=== PATIENT | female | born 1940 | race Caucasian/White ===

== ENCOUNTER → 2016-04-25 | Outpatient (CLI) | payer MEDICARE ==
--- NOTE | 2016-04-25 10:55 | MM ---
Reason for exam: history of breast cancer, mastectomy. Last mammogram was performed 1 year and 1 month ago. History: Patient is postmenopausal, has history of high-risk lesion on a previous biopsy at age 64, has history of endometrial cancer at age 56, and has history of breast cancer at age 53. Mastectomy of the left breast, 1993. Excisional biopsy of the right breast, 1990. Chemotherapy. Taking tamoxifen for 10 years 5 months beginning at age 61. Physical Findings: Nurse did not find any significant physical abnormalities on exam. MG Diagnostic Mammo RT w CAD CC and MLO view(s) were taken of the right breast. Prior study comparison: March 15, 2015, right breast MG 3d diag mammo w/cad RT. February 10, 2014, right breast MG diagnostic mammo RT w CAD. December 18, 2012, right diagnostic mammogram w/CAD. There are scattered fibroglandular densities. Left mastectomy in 1993. No significant new findings when compared with previous films. These results were verbally communicated with the patient and result sheet given to the patient on 04/25/16. ASSESSMENT: Negative, BI-RAD 1 RECOMMENDATION: Follow-up diagnostic mammogram of the right breast in 1 year.
--- NOTE | 2016-04-25 11:24 | WWHP ---
DATE OF SERVICE: 04/25/2016 CHIEF COMPLAINT: The patient is here for her routine gynecologic exam and mammogram. HPI: This is a 75-year-old G3, P3 with an LMP of 1996 who is status post CHERIE, BSO for uterine cancer. The patient states it has been about 4 years since her last pelvic exam. She is without gynecologic complaints. PAST MEDICAL HISTORY: The patient has a history of left breast cancer, status post left mastectomy. She took Arimidex for 5 years and then tamoxifen for 5 years. She had a metastatic recurrence of the breast cancer and is now on Aromasin. The patient also was found to have uterine cancer in approximately 1996 and is status post CHERIE/BSO. She had part of her right lung removed in 2011 for metastatic cancer. 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 Also history of hypothyroidism. MEDICATIONS: 1. Aromasin 25 mg daily. 2. Levothyroxine 50 mcg daily. 3. Tramadol 50 mg p.r.n. 4. Hydroxyzine 50 mg p.r.n. 5. Acetaminophen t.i.d. p.r.n. 6. Aspirin 81 mg 1 daily. Allergies to SULFA, which caused tachycardia and PENICILLIN which caused her to develop C. difficile enterocolitis. PAST SURGICAL HISTORY: Left mastectomy approximately 1994, CHERIE/BSO in 1996 by myself, part of the right lung was removed approximately 2011, also knee replacement surgery, hip replacement surgery, umbilical hernia repair, leg vein stripping, tonsillectomy in the past, colonoscopy in 2015 and she has had several before this as well. PAST OB HISTORY: Three vaginal deliveries. 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 She has no history of STDs. SOCIAL HISTORY: She denies tobacco, alcohol, and drug use. She is a and is not sexually active. FAMILY HISTORY: Mother had heart valve problems. Daughter has Crohn disease. She denies family history of cancer of the breast, uterus, ovaries or colon. REVIEW OF SYSTEMS: Weight has been stable. She denies respiratory, cardiac, or GI problems. : She does have some occasional urinary urgency where she has to get to the bathroom right away and this has been a chronic problem. She denies maltreatment or falling. PHYSICAL EXAM: Blood pressure 143/64. Height 5 feet 5 inches. Weight 174 pounds. Temperature 97.7, pulse 71. This a well-developed, well-nourished white female who is alert and oriented x3 in no acute distress. HEENT is within normal limits. NECK: Supple without mass or thyromegaly. CHEST AND LUNGS: Clear to auscultation. HEART: Regular rate and rhythm. Breasts are consistent with previous left mastectomy. The right breast is without mass or discharge. The area of the left mastectomy is well healed with no abnormal masses or tenderness. Axillary exam is negative for adenopathy. BACK: Negative for CVA tenderness. ABDOMEN: Soft, nontender, without palpable masses. PELVIC EXAM: External genitalia reveals moderate atrophy without lesions. Vagina reveals moderate atrophy without lesions. The vagina is somewhat shortened to a depth of about one finger length. This is probably secondary to atrophy. There is no evidence of prolapse. Bimanual exam is negative for mass or tenderness. Rectovaginal exam is negative for mass or tenderness and is negative for occult blood. EXTREMITIES: Nontender. IMPRESSION: 1. A 75-year-old menopausal female, status post total abdominal hysterectomy bilateral salpingo-oophorectomy for uterine cancer in approximately 1996. 2. History of breast cancer with history of metastatic lesions in the lung and rib with no evidence of recurrence of breast or uterine cancer on physical exam today. PLAN: 1. Pap smear of the vaginal cuff was performed. We will continue to do vaginal cuff Pap smear screening because of her history of cancer. 2. Self breast examination was discussed. 3. Right diagnostic mammogram will be done today. 4. We will obtain records from [facility] [employer] and this should include bone density testing, which she believes was done there. 5. Osteoporosis prevention was discussed. 6. She is aware of her mildly elevated blood pressure and will follow up with Dr. Cali for this. 7. She did get her flu shot this past fall. 8. She will return in one year.
== END | disposition home or self-care (01) ==
LOC: WWCWWP 09:09
PROVIDERS: ATTEND Obstetrics & Gynecology
DX: Z85.3 Personal history of malignant neoplasm of breast (principal)

== ENCOUNTER → 2017-05-28 | Outpatient (CLI) | payer MEDICARE ==
[2017-05-28 09:35] VITALS: BP 138/73; PULSE 54; RESP 18; TEMP 98; BMI 28.8
--- NOTE | 2017-05-28 10:42 | P.HPOB ---
History of Present Illness H&P Date: 05/28/17 Chief Complaint: Patient is here for her routine gynecologic exam and mammogram. This is a 77-year-old G3 PIII with an LMP of 1996 who is status post CHERIE BSO for uterine cancer. She is without gynecologic complaints. She is not sexually active. Review of Systems Her weight has been stable. She denies respiratory, cardiac, or G.I. problems. She denies maltreatment or falling. : she does have occasional urinary urgency where she has to get to the bathroom right away. She denies significant problems with leakage. Past Medical History Past Medical History: Cancer (Breast, lung and endometrial cancer. History of osteoporosis- She has declined treatment in the past.), Osteoarthritis (OA), Thyroid Disorder (Hypothyroidism) Additional Past Medical History / Comment(s): BREAST,LUNG AND ENDOMETRIAL CA. 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 Last [facility] 2016 History of Any Multi-Drug Resistant Organisms: C-DIFF Date of last positivie culture/infection: 2002 MDRO Source:: STOOL Past Surgical History: Adenoidectomy, Breast Surgery, Hernia Repair, Hysterectomy (CHERIE BSO in 1996), Joint Replacement, Tonsillectomy Additional Past Surgical History / Comment(s): LEFT KNEE REPLACED. left MASTECTOMY. RIGHT LOWER LOBECTOMY. LEFT HIP REPLACED Past Anesthesia/Blood Transfusion Reactions: No Reported Reaction, Motion Sickness Past Psychological History: No Psychological Hx Reported Smoking Status: Never smoker Past Alcohol Use History: None Reported Past Drug Use History: None Reported Additional History: She is a and is not sexually active. - Past Family History Father History Unknown: Yes Mother Family Medical History: Coronary Artery Disease (CAD) Additional Family Medical History / Comment(s): CARDIAV VALVE REPLACED? Brother(s) Family Medical History: Mitral Valve Prolapse (MVP) Additional Family Medical History / Comment(s): VALVE REPLACED. Daughter(s) Additional Family Medical History / Comment(s): Daughter has Crohn's disease. Medications and Allergies Home Medications Medication Instructions Recorded Confirmed Type Exemestane 25 mg PO QAM 09/16/14 05/28/17 History traMADol HCL [Ultram] 50 mg PO Q6HR PRN #90 tab 10/01/14 05/28/17 Rx Levothyroxine Sodium [Synthroid] 50 mcg PO DAILY 12/16/15 05/28/17 History Aspirin [Adult Low Dose Aspirin EC] 81 mg PO DAILY 05/28/17 05/28/17 History Atenolol [Tenormin] 25 mg PO DAILY 05/28/17 05/28/17 History Ibuprofen [Motrin] 600 mg PO Q8HR PRN 05/28/17 05/28/17 History Allergies Allergy/AdvReac Type Severity Reaction Status Date / Time celecoxib [From Celebrex] Allergy Rash/Hives Verified 05/28/17 09:40 Sulfa (Sulfonamide Allergy Rapid Verified 05/28/17 09:40 Antibiotics) Heart Rate Penicillins AdvReac PATIENT Verified 05/28/17 09:40 HAS A HX OF C-DIFF, WAS TOLD BY DR REBOLLAR TO NO USE Exam - Vital Signs Vital signs: Vital Signs Temp Pulse Resp BP 05/28/17 09:24 98 F 54 L 18 138/73 Intake and Output 05/27/17 05/28/17 05/28/17 22:59 06:59 14:59 Other: Weight 78.471 kg Height 5'5", BMI 28.8. This is a well-developed well-nourished white female who is alert and oriented times 3 in no acute distress. HEENT: Within normal limits. NECK: Supple without mass or thyromegaly. CHEST AND LUNGS: Clear to auscultation. HEART: Regular rate and rhythm. BREASTS: left side is status post mastectomy. There are no masses in this area. Right breast is without mass or tenderness. Axillary exams negative for adenopathy. AXILLARY EXAM: Negative for adenopathy. BACK: Negative for CVA tenderness. ABDOMEN: Soft, nontender, without palpable masses. PELVIC EXAM: External genitalia appears normal with moderate atrophy. Vagina appears normal with moderate to severe atrophy. The vagina is somewhat short secondary to atrophy and has a length of approximately 9 cm. There is no evidence of prolapse. Bimanual examination is negative for mass or tenderness. RECTAL EXAM: Rectovaginal exam is negative for mass or tenderness and is negative for occult blood. EXTREMITIES: Nontender. IMPRESSION: 1. 77-year-old menopausal female status post CHERIE BSO for endometrial cancer stage 2B grade 2 with no evidence of recurrence. 2. History of osteoporosis previously declining medications. 3. Multiple medical problems. These problems include history of left breast cancer and metastatic lung cancer. PLAN: 1. Pap smear of the vaginal cuff was performed because of her history of endometrial cancer. 2. Self breast examination was discussed. 3. Diagnostic right mammogram will be done today. 4. Osteoporosis management was discussed. Bone density testing will be done in order slip was given at the patient for this. 5. She will return in one year. 6. She did receive a flu shot last fall.
--- NOTE | 2017-05-28 11:57 | MM ---
Reason for exam: additional evaluation requested from prior study. Last mammogram was performed 1 year and 1 month ago. History: Patient is postmenopausal, has history of high-risk lesion on a previous biopsy at age 64, has history of endometrial cancer at age 56, and has history of breast cancer at age 53. Mastectomy of the left breast, 1993. Excisional biopsy of the right breast, 1990. Chemotherapy. Taking tamoxifen for 10 years 5 months beginning at age 61. Physical Findings: Dr. Machado did not find any significant physical abnormalities on exam. MG Diagnostic Mammo RT w CAD CC, MLO, LM, and spot compression MLO view(s) were taken of the right breast. Prior study comparison: April 25, 2016, right breast MG diagnostic mammo RT w CAD. March 15, 2015, right breast MG 3d diag mammo w/cad RT. The breast tissue is heterogeneously dense. This may lower the sensitivity of mammography. There is a 9mm asymmetry that persists on spot compression views at anterior depth within the lateral right breast. Ultrasound will be performed. These results were verbally communicated with the patient and result sheet given to the patient on 05/28/17. ASSESSMENT: Incomplete: need additional imaging evaluation, BI-RAD 0 RECOMMENDATION: Ultrasound of the right breast.
--- NOTE | 2017-05-28 11:59 | USB ---
Reason for exam: additional evaluation requested from abnormal screening. History: Patient is postmenopausal, has history of high-risk lesion on a previous biopsy at age 64, has history of endometrial cancer at age 56, and has history of breast cancer at age 53. Mastectomy of the left breast, 1993. Excisional biopsy of the right breast, 1990. Chemotherapy. Taking tamoxifen for 10 years 5 months beginning at age 61. US Breast Limited RT Right breast ultrasound demonstrates a 0.4 x 0.2 x 0.3cm cystic lesion too small to characterize at 9:30, anechoic, vascular with slight increase through transmission. These results were verbally communicated with the patient and result sheet given to the patient on 05/28/17. ASSESSMENT: Benign, BI-RAD 2 RECOMMENDATION: Routine screening mammogram of the right breast in 1 year.
== END | disposition home or self-care (01) ==
LOC: WWCWWP 09:08
PROVIDERS: ATTEND Obstetrics & Gynecology
DX: Z08 Encounter for follow-up examination after completed treatment for malignant neoplasm (principal); Z85.3 Personal history of malignant neoplasm of breast
CPT/HCPCS: 77065

== ENCOUNTER → 2017-06-26 | Outpatient (CLI) | payer MEDICARE ==
--- NOTE | 2017-06-26 18:53 | BD ---
EXAMINATION TYPE: MG DEXA axial skeleton. DATE OF EXAM: 06/26/2017 CLINICAL HISTORY: 77-year-old female postmenopausal screening, osteoporosis Height: 62.5 Weight: 175 FRAX RISK QUESTIONS: Alcohol (3 or more units per day): no Family History (Parent hip fracture): no Glucocorticoids (More than 3mos): no (Ex: prednisone, prednisolone, methylprednisolone, dexamethasone, and hydrocortisone). History of Fracture in Adulthood: yes, right wrist/lower arm Secondary Osteoporosis: 1. Type 1 Diabetes: no 2. Hyperthyroidism: unsure 3. Menopause before 45: no 4. Malnutrition: no 5. Chronic liver disease: no Rheumatoid Arthritis: unsure Current Tobacco Use: no RISK FACTORS HISTORY OF: Hip Fracture (Right/Left): no Spine Fracture: no History of Wrist Fracture: yes When: at least 10 years Surgery to Hip(left): yes When: less than 5 years ago Family History of Osteoporosis: unsure Active: somewhat Diet low in dairy products/other sources of calcium: no Postmenopausal woman: yes Take estrogen and/or progesterone medications: no Lost more than 2 inches in height since high school: yes Frequent falls: no Poor Health: "OK" health Hyperparathyroidism: no Adrenal Insufficiency: no MEDICATIONS: Prednisone or other steroids: no Thyroid Medications: yes Which medication: levothyroxine How Long: about 2 years Osteoporosis Medications: no Additional Medications: Atenolol, Aromasin, tramadol, ibuprofin, asprin Additional History: Hysterectomy age 56; Breast CA age 61/ Chemo....took Antineoplastic over 10 years EXAM MEASUREMENTS: Bone mineral densitometry was performed using the [employer] System. Bone mineral density as measured about the Lumbar spine is: ----- L1-L4(G/cm2): 1.038 T Score Values are as follows: ----- L2: -0.5 ----- L3: -1.5 ----- L4: -1.9 ----- L1-L4: -1.2 Bone mineral density not previously done at this facility; previously done elsewhere Bone mineral density about the R hip (g/cm2): 0.608 T Score values are as follows: -----R Neck: -3.1 -----R Total: -3.4 Bone mineral density not previously done at this facility; previously done elsewhere IMPRESSION: Osteoporosis (T Score less than -2.5). There is increased fracture risk and therapy is usually indicated based on age. Re-Screen 1-2 years. NOTE: T-SCORE=SD OF THE YOUNG ADULT MEAN.
--- NOTE | 2017-07-02 17:33 | P.PN ---
Progress Note - Text Progress Note Date: 07/02/17 The patient's bone density test from 06/26/2017 was reviewed with the patient by phone. The bone density test shows osteoporosis in the right hip. The T score has gotten worse from her 07/28/2009 bone density test. She understands this significantly increases the risk for bone fracture. After a long discussion, she feels strongly that she does not want to start any bone strengthening medication. She understands there are several different types of medications for osteoporosis. She will try to get adequate amounts of calcium, vitamin D and regular exercise. She will try to keep her environment safe without things that would increase the risk of falling. She was instructed to call if she changes her mind about osteoporosis medications.
== END | disposition home or self-care (01) ==
LOC: RADBDWWP 09:41
PROVIDERS: ATTEND Obstetrics & Gynecology
DX: M81.0 Age-related osteoporosis without current pathological fracture (principal); Z78.0 Asymptomatic menopausal state
CPT/HCPCS: 77080

== ENCOUNTER → 2017-07-01 | Outpatient (CLI) | payer MEDICARE ==
[2017-07-01 10:53] LABS: Blood Urea Nitrogen 17 mg/dL (7-17)
--- NOTE | 2017-07-01 13:19 | CT ---
EXAMINATION TYPE: CT ChestAbdPelvis w con DATE OF EXAM: 07/01/2017 COMPARISON: 10/23/2013 HISTORY: Follow up breast cancer. History of partial pneumonectomy. CT DLP: 866.1 mGycm. Automated Exposure Control for Dose Reduction was Utilized. CONTRAST: CT scan of the thorax, abdomen and pelvis is performed with IV Contrast, patient injected with 100 mL of Isovue 300. FINDINGS: LUNGS/OSSEOUS STRUCTURES: There is new chest wall mass and osseous destruction of the anterior margin and costochondral junction of the fifth rib on the left with pleural thickening/chest wall mass harper uring up to 2.1 cm on series 3 image 36 and 5.8 cm in anterior posterior dimension. There is focal sc lerosis of the more proximal fifth rib at the anterior lateral margin just before the area of osseous destruction. Mild glenohumeral arthropathy and moderate degenerative changes of the thoracic spine a re seen otherwise no other suspicious osseous lesions are noted. Generalized osseous demineralization and left hip arthroplasty are seen. Grade 1 anterolisthesis of L4 on L5 is seen, likely degenerative in nature. There is an S-shaped scoliotic curvature of the thoracolumbar spine. Focal pleural thickening is seen along the interlobar fissure with associated calcification, not enla rged from and similar to the prior exam of 10/23/2013 with postsurgical clips along the right mediasti num. Findings are compatible with sequela of prior right-sided partial pneumonectomy. Minimal right m iddle lobe atelectasis is noted. Chronic left hemidiaphragm elevation is seen. Right basilar calcifie d granuloma is unchanged from the prior as well as area of pleural parenchymal scarring along the rig ht costophrenic angle. Anterior left upper lobe pleural parenchymal scarring is also identified. Left basilar subsegmental atelectasis is seen. No new pulmonary nodules or masses are identified. No foca l consolidation, pleural effusion or pneumothorax. The tracheobronchial tree is patent. MEDIASTINUM: There are no greater than 1 cm hilar or mediastinal lymph nodes. Moderate calcific athe romatous changes are seen of the thoracic aorta with severe coronary artery calcifications of the lef t main and left anterior descending coronary arteries. No pericardial effusion is seen. Left breast is surgically absent. LIVER/GB: Probable hepatic cyst measures 1.2 cm within the inferior right hepatic lobe in segment 5 a nd is unchanged from the prior of 10/23/2013. No new hepatic lesions are seen. Gallbladder is unremark able without cholelithiasis. PANCREAS: No significant abnormality is seen. SPLEEN: No significant abnormality is seen. ADRENALS: Symmetric thickening without focal nodularity likely represents underlying adrenal gland hy perplasia. KIDNEYS: Right-sided extrarenal pelvis is incidentally identified. Kidneys enhance and excrete symmet rically. No hydronephrosis. BOWEL: There is a small hiatal hernia with retained oral contrast that may represent gastroesophageal reflux or stasis. There is rectal distention with air without evidence of obstruction. Moderate amou nt retained colonic stool is noted. LYMPH NODES: No greater than 1cm abdominal or pelvic lymph nodes are appreciated. OTHER: There is a small fat filled ventral hernia with a neck measuring 1.4 cm. IMPRESSION: 1. Osseous destruction of the anterior left fifth rib with chest wall mass and focal pleural thickeni ng measuring 5.8 x 2.1 cm deep to the left mastectomy site concerning for recurrence of the patient's primary breast cancer. This is amenable to percutaneous biopsy. No mediastinal adenopathy, axillary adenopathy or internal mammary adenopathy. 2. Stable probable hepatic cyst dating back to 2014. No evidence of visceral, lymphatic, or osseous m etastasis within the abdomen or pelvis. 3. Postsurgical changes of a partial right-sided pneumonectomy. Stable pleural thickening back to 201 4.
--- NOTE | 2017-07-01 15:41 | NM ---
EXAMINATION TYPE: NM bone scan whole body DATE OF EXAM: 07/01/2017 COMPARISON: 10/05/2013 HISTORY: Breast cancer. Delayed whole-body scanning was performed following the injection of 23.5 mCi Tc 99m MDP. Images acq uired 3 hours post injection. FINDINGS: The previously seen focal uptake within the left hip is no longer present as there is a photopenic de fect from a left hip arthroplasty. Similar degenerative changes of the right knee are seen in compari son to the prior. Physiologic excretion within the renal pelvises sees and urinary bladder are noted. S-shaped scoliotic curvature of the spine is seen with degenerative changes of the axial skeleton si milar to the prior exam with mild uptake in the lumbar spine and no corresponding CT lesion. Degenera tive changes of arthropathy within the glenohumeral joints and sternal clavicular joints are also not ed. Injection site within the right and is present. Additionally there is an abnormal area radiotracer uptake within the anterior margin of the left fift h rib, and compatible with metastasis and similar to exam of 10/05/2013. IMPRESSION: 1. Similar uptake within the anterior left approximate fifth rib in comparison to exam of 2013 compat ible with metastasis. 2. Left hip arthroplasty replaces the previously seen area of abnormal radiotracer uptake within the left hip on the exam of 2013. 3. Degenerative changes of the axial and appendicular skeleton are also similar to the prior.
== END | disposition home or self-care (01) ==
LOC: RADNMMAIN 10:01
PROVIDERS: ATTEND Internal Medicine Hematology & Oncology
DX: C50.512 Malignant neoplasm of lower-outer quadrant of left female breast (principal); Z90.12 Acquired absence of left breast and nipple; R94.8 Abnormal results of function studies of other organs and systems; R91.8 Other nonspecific abnormal finding of lung field; Z90.2 Acquired absence of lung [part of]; Z88.2 Allergy status to sulfonamides
CPT/HCPCS: 82565; 84520; 71260; 74177; 36415 ×2; 78306; A9503; Q9967

== ENCOUNTER → 2018-06-12 | Outpatient (CLI) | payer MEDICARE ==
--- NOTE | 2018-06-12 11:43 | MM ---
Reason for exam: additional evaluation requested from prior study. Last mammogram was performed 1 year ago. History: Patient is postmenopausal, has history of high-risk lesion on a previous biopsy at age 64, has history of endometrial cancer at age 56, and has history of breast cancer at age 53. Mastectomy of the left breast, 1993. Excisional biopsy of the right breast, 1990. Chemotherapy. Taking tamoxifen for 10 years 5 months beginning at age 61. Physical Findings: Nurse did not find any significant physical abnormalities on exam. MG Diagnostic Mammo RT w CAD CC and MLO view(s) were taken of the right breast. Prior study comparison: May 28, 2017, right breast MG diagnostic mammo RT w CAD. April 25, 2016, right breast MG diagnostic mammo RT w CAD. The breast tissue is heterogeneously dense. This may lower the sensitivity of mammography. There are benign appearing round vascular calcifications in the right breast. Asymmetric breast tissue in the right breast is stable. These results were verbally communicated with the patient and result sheet given to the patient on 06/12/18. ASSESSMENT: Benign, BI-RAD 2 RECOMMENDATION: Follow-up diagnostic mammogram of the right breast in 1 year.
== END ==
LOC: RADMAMWWP 10:42
PROVIDERS: ATTEND Internal Medicine Hematology & Oncology
DX: C50.512 Malignant neoplasm of lower-outer quadrant of left female breast (principal)
CPT/HCPCS: 77065

== ENCOUNTER → 2018-09-03 | Outpatient (CLI) | payer MEDICARE ==
[2018-09-03 10:30] VITALS: BP 130/66; PULSE 81; RESP 18; TEMP 98.4; BMI 25.6
--- NOTE | 2018-09-03 12:07 | P.HPOB ---
History of Present Illness H&P Date: 09/03/18 Chief Complaint: The patient is here for her routine gynecologic exam. This is a 78 year old G3 PIII with an LMP of 1996 the patient is status post CHERIE BSO for uterine cancer stage 2B grade 2. Because of the history of cancer involving the cervix, she continues to have yearly exams to screen for vaginal cancer or signs of recurrence. She is without gynecologic complaints.. Review of Systems She has lost 17 pounds over the last year. She denies respiratory or cardiac, problems. G.I.: she has slight stomach upset today. She denies maltreatment or problems with falling. : she has had some issues with urinary leakage if she does not get to the bathroom in time. She does wear protection because of this. Past Medical History Past Medical History: Cancer, Osteoarthritis (OA), Thyroid Disorder Additional Past Medical History / Comment(s): BREAST,LUNG AND ENDOMETRIAL CA. Osteoporosis and hypothyroidism. 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 History of Any Multi-Drug Resistant Organisms: C-DIFF Date of last positivie culture/infection: 2002 MDRO Source:: STOOL Past Surgical History: Adenoidectomy, Breast Surgery, Hernia Repair, Hy sterectomy, Joint Replacement, Tonsillectomy Additional Past Surgical History / Comment(s): LEFT KNEE REPLACED. left MASTECTOMY. RIGHT LOWER LOBECTOMY. LEFT HIP REPLACED. CHERIE BSO in 1996. Past Anesthesia/Blood Transfusion Reactions: No Reported Reaction, Motion Sickness Past Psychological History: No Psychological Hx Reported Smoking Status: Never smoker Past Alcohol Use History: None Reported Past Drug Use History: None Reported Additional History: She is a and is not sexually active. - Past Family History Father History Unknown: Yes Daughter(s) Additional Family Medical History / Comment(s): Daughter has Crohn's disease. Mother Family Medical History: Coronary Artery Disease (CAD) Additional Family Medical History / Comment(s): CARDIAC VALVE PROBLEMS Brother(s) Family Medical History: Mitral Valve Prolapse (MVP) Additional Family Medical History / Comment(s): VALVE REPLACED. Medications and Allergies Home Medications Medication Instructions Recorded Confirmed Type Exemestane 25 mg PO QAM 09/16/14 09/03/18 History traMADol HCL [Ultram] 50 mg PO Q6HR PRN #90 tab 10/01/14 09/03/18 Rx Levothyroxine Sodium [Synthroid] 50 mcg PO DAILY 12/16/15 09/03/18 History Aspirin [Adult Low Dose Aspirin EC] 81 mg PO DAILY 05/28/17 05/28/17 History Atenolol [Tenormin] 25 mg PO DAILY 05/28/17 09/03/18 History Ibuprofen [Motrin] 600 mg PO Q8HR PRN 05/28/17 09/03/18 History Allergies Allergy/AdvReac Type Severity Reaction Status Date / Time celecoxib [From Celebrex] Allergy Rash/Hives Verified 09/03/18 10:30 Sulfa (Sulfonamide Allergy Rapid Verified 09/03/18 10:30 Antibiotics) Heart Rate Penicillins AdvReac PATIENT Verified 09/03/18 10:30 HAS A HX OF C-DIFF, WAS TOLD BY DR REBOLLAR TO NO USE Exam Vital Signs Temp Pulse Resp BP Pulse Ox 09/03/18 10:23 98.4 F 81 18 130/66 99 Intake and Output 09/02/18 09/03/18 09/03/18 22:59 06:59 14:59 Other: Weight 69.853 kg Height 5'5", weight 154 pounds, BMI 25.6. This is a well-developed well-nourished white female who is alert and oriented times 3 in no acute distress. HEENT: Within normal limits. NECK: Supple without mass or thyromegaly. CHEST AND LUNGS: Clear to auscultation. HEART: Regular rate and rhythm. BREASTS: she is status post left mastectomy. The right breast is without mass or discharge. AXILLARY EXAM: Negative for adenopathy. BACK: Negative for CVA tenderness. ABDOMEN: Soft, nontender, without palpable masses. PELVIC EXAM: External genitalia appears normal with moderate atrophy and moderate varicosities. Vagina appears normal with moderate atrophy. There are no vaginal lesions. The vagina is moderately shortened consistent with her previous radiation therapy. There is no evidence of prolapse. Bimanual examination is negative for mass or tenderness. RECTAL EXAM: Rectovaginal exam is negative for mass or tenderness and is negative for occult blood. EXTREMITIES: Nontender. IMPRESSION: 1. 78-year-old menopausal female status post CHERIE BSO for endometrial cancer stage 2B (cervical involvement) grade 2 status post adjuvant radiation therapy with no evidence of recurrence on exam. 2. History of left breast cancer with history of metastatic lesions in the long and rib with no evidence of recurrence on physical exam today. 3. History of osteoporosis, refusing medication. PLAN: 1. Pap smear of the vaginal cuff was performed. We will continue to do this yearly because of her history of endometrial cancer with cervical involvement. 2. Self breast awareness was discussed with the patient. 3. Mammogram on the right side was done on 06/12/2018 and was benign. She will continue to do this yearly and has done this through her oncologist. 4. Osteoporosis management was discussed. I have stressed the importance of adequate calcium, vitamin D and regular exercise. Recommended amounts of calcium and vitamin D were also discussed. I have again recommended medication because of her increased risk for bone fracture. She again is declining treatment with medication. Her last bone density test was done on 06/26/17. 5. She does get flu shots in the fall. 6.She was advised to return in one year for her annual well woman exam.
== END ==
LOC: WWCWWP 10:15
PROVIDERS: ATTEND Obstetrics & Gynecology
DX: Z53.9 Procedure and treatment not carried out, unspecified reason (principal)

== ENCOUNTER → 2019-11-05 | Outpatient (CLI) | payer MEDICARE ==
--- NOTE | 2019-11-05 10:46 | MM ---
Reason for exam: additional evaluation requested from prior study. Last mammogram was performed 1 year and 5 months ago. History: Patient is postmenopausal, has history of high-risk lesion on a previous biopsy at age 64, has history of endometrial cancer at age 56, and has history of breast cancer at age 53. Mastectomy of the left breast, 1993. Excisional biopsy of the right breast, 1990. Chemotherapy. Taking tamoxifen for 10 years 5 months beginning at age 61. Physical Findings: Nurse did not find any significant physical abnormalities on exam. MG 3D Diag Mammo W/Cad RT CC and MLO view(s) were taken of the right breast. Prior study comparison: June 12, 2018, right breast MG diagnostic mammo RT w CAD. May 28, 2017, right breast MG diagnostic mammo RT w CAD. The breast tissue is heterogeneously dense. This may lower the sensitivity of mammography. Stable benign calcifications. There is no discrete abnormality. No significant new findings when compared with previous films. These results were verbally communicated with the patient and result sheet given to the patient on 11/05/19. ASSESSMENT: Benign, BI-RAD 2 RECOMMENDATION: Follow-up diagnostic mammogram of the right breast in 1 year.
== END | disposition home or self-care (01) ==
LOC: RADMAMWWP 09:42
PROVIDERS: ATTEND Internal Medicine Hematology & Oncology
DX: Z08 Encounter for follow-up examination after completed treatment for malignant neoplasm (principal); Z85.3 Personal history of malignant neoplasm of breast
CPT/HCPCS: 77065; G0279; 77061

== ENCOUNTER → 2020-03-02 | Outpatient (CLI) | payer MEDICARE ==
--- NOTE | 2020-03-02 15:12 | BD ---
EXAMINATION TYPE: Axial Bone Density DATE OF EXAM: 03/02/2020 COMPARISON: 06/26/2017 CLINICAL HISTORY: Postmenopausal female with osteoporosis. Height: 60.5 IN Weight: 145 LBS RISK FACTORS HISTORY OF: History of Wrist Fracture: RT WRIST FX AGE 9 Surgery to Hip(left): AGE 70 Active: LIMITED Postmenopausal woman: TOTAL HYST AGE 47 Lost more than 2 inches in height since high school: YES 6" MEDICATIONS: Thyroid Medications: YES Which medication: Levothyroxine How Lon YEARS Osteoporosis Medications: FOSAMAX How Lon MONTHS Additional Medications: CALCIUM, VIT D, 81 MG ASPIRIN, ATENOLOL, LEVOTHYROXINE, EXEMESTANE (PER PT TH IS IS A CANCER MEDICATION),ALENDRONATE Additional History: BREAST CANCER WITH CHEMO AND RADIATION EXAM MEASUREMENTS: Bone mineral densitometry was performed using the [employer] System. Bone mineral density as measured about the Lumbar spine is: ----- L1-L4(G/cm2): 1.032 T Score Values are as follows: ----- L2: -0.6 ----- L3: -1.5 ----- L4: -1.9 ----- L1-L4: -1.2 Bone mineral density has: Decreased -0.3% since study of: 06/26/2017 Bone mineral density about the R hip (g/cm2): 0.581 T Score values are as follows: -----R Neck: -3.3 ----R Total: -4.0 Bone mineral density has: Decreased -13.8% since study of: 06/26/2017 IMPRESSION: Osteoporosis (T Score less than -2.5) remains present in right hip. Bone density is decreased or dimi nished from prior. Bone density falsely measured in the lumbar spine due to reactive sclerosis relate d to underlying scoliosis. There remains increased fracture risk and therapy is usually indicated based on age. Re-Screen 1-2 years. NOTE: T-SCORE=SD OF THE YOUNG ADULT MEAN.
== END | disposition home or self-care (01) ==
LOC: RADBDWWP 09:15
PROVIDERS: ATTEND Family Medicine
DX: M81.0 Age-related osteoporosis without current pathological fracture (principal); M89.8X8 Other specified disorders of bone, other site; M41.80 Other forms of scoliosis, site unspecified
CPT/HCPCS: 77080

== ENCOUNTER → 2020-04-27 | Outpatient (CLI) | payer MEDICARE ==
--- NOTE | 2020-04-27 10:37 | CT ---
EXAMINATION TYPE: CT ChestAbdPelvis w con DATE OF EXAM: 04/27/2020 INDICATION: Breast cancer COMPARISON: 07/01/2017 CT DLP: 1466 mGycm CONTRAST: Performed with Oral Contrast and with IV Contrast, patient injected with 100 ml mL of Isovue 300. TECHNIQUE: Axial images at 5 mm thick sections. Reconstructed images in the coronal plane. Delayed images through the kidneys. FINDINGS: CT CHEST: Portion of the thyroid visualized is normal. No suspicious lung nodules or focal infiltrates are present. No enlarged mediastinal or hilar adenopathy is evident. The ascending aorta diameter at the level of the main pulmonary artery is 3.6 cm. The main pulmonary artery diameter at the bifurcation is 3.5 cm. There is soft tissue thickening in the left intercostal region estimated at 6.2 x 3.0 cm.. Previous m easurement 5.[address] ABDOMEN: Liver: There is a 1.4 cm cyst in the right lobe liver Spleen: Normal Pancreas: Normal Adrenal glands: The adrenal glands are normal. Gallbladder: Small gallstone is likely present. Kidneys: No masses are evident. No hydronephrosis is present. No cysts are present. Delayed images were obtained through the kidneys, which remain unremarkable. Aorta: Vascular calcification is within the aorta. Inferior vena cava: Normal. CT PELVIS: Beam hardening artifact from a left hip prosthesis is present. Loops of bowel within the abdomen and pelvis are normal. There are loops of bowel which are incom pletely distended or lack oral contrast limiting their evaluation. Appendix: Not identified. No suspicious dilated tubular structure or inflammatory changes are evident . Urinary bladder: Normal as visualized. Genitourinary structures: Uterus and ovaries are not identified. Osseous structures: No suspicious lytic or sclerotic lesions. Facet degenerative changes are present. Scoliosis is through the lumbar spine. Suspicious rib erosions at the chest wall mass are not identi fied. IMPRESSIONS: 1. Increasing chest wall mass left anterior lateral intercostal region. 2. Additional metastatic lesions not identified. Exam is otherwise stable from comparison
--- NOTE | 2020-04-27 14:07 | NM ---
EXAMINATION TYPE: NM bone scan whole body DATE OF EXAM: 04/27/2020 COMPARISON: 07/01/2017, 10/05/2013 HISTORY: Breast cancer Delayed whole-body scanning was performed following the injection of 22.0 mCi Tc 99m MDP. Images wer e acquired 4.5 hours post injection. FINDINGS: Scoliosis is present. There is some increased uptake in the mid right posterior costovertebral juncti on. This could be degenerative but is not clearly evident on the prior exam. Consider plain film cor relation to the thoracic spine. There is increased uptake in the region of the bilateral shoulders greater on the left, the right kne e, the bilateral first metacarpal phalangeal joint spaces. These are likely degenerative in nature. L eft hip and left knee prosthesis photopenic defects are evident. There is some subtle uptake at the cervicothoracic junction slightly right of midline. This is likely degenerative in nature and may been present previously. IMPRESSION: 1. At least 2 focal areas of increased uptake at the costovertebral junction in the region of T9-10 a t the convexity of the scoliosis. This may be an interval change. Plain film correlation with thoraci c films are recommended. This could be degenerative in nature. 2. Additional areas of uptake more typical for degenerative changes in present previously.
== END ==
LOC: RADCTMAIN 07:44
PROVIDERS: ATTEND Internal Medicine Hematology & Oncology
DX: C50.512 Malignant neoplasm of lower-outer quadrant of left female breast (principal); R22.2 Localized swelling, mass and lump, trunk
CPT/HCPCS: 82565; 84520; 71260; 74177; 36415; 78306; A9503; Q9967

== ENCOUNTER → 2020-11-01 | Outpatient (CLI) | payer MEDICARE ==
[2020-11-01 09:29] LABS: African American GFR (CKD) >90 (>60 ml/min/1.73 sqM); Blood Urea Nitrogen 20 mg/dL (7-17); Non-African American GFR(CKD) 78 (>60 ml/min/1.73 sqM)
--- NOTE | 2020-11-01 11:34 | CT ---
EXAMINATION TYPE: CT ChestAbdPelvis w con DATE OF EXAM: 11/01/2020 COMPARISON: Most recent CT and bone scan April 27, 2020 and older studies HISTORY: Breast CA progress study. CT DLP: 1152 mGycm. Automated Exposure Control for Dose Reduction was Utilized. CONTRAST: CT scan of the thorax, abdomen and pelvis is performed with oral and with IV Contrast, patient inject ed with 100 mL of Isovue 300. FINDINGS: LUNGS: Persistent fat-containing diaphragmatic hernia sagittal image 68 left lung base. Mild bibasila r linear scarring and/or atelectasis. No new greater than 5 mm nodules or masses. No pleural effusion or pneumothorax. MEDIASTINUM: There are no greater than 1 cm hilar or mediastinal lymph nodes. No cardiomegaly or pe ricardial effusion is seen. Prominent right and left pulmonary arteries, CT findings consistent with underlying pulmonary artery hypertension. Coronary artery calcification is redemonstrated. OTHER: Left breast is surgically absent. Persistent anterolateral left sided chest wall mass measuring 6.1 x 3.0 cm axial image 35 destroying portion of anterolateral left fifth rib. No significant change from prior study. LIVER/GB: Stable 1.3 cm thin-walled cyst right hepatic lobe axial image 64. Tiny dependent gallstone axial image 61 is redemonstrated. PANCREAS: No significant abnormality is seen. SPLEEN: No significant abnormality is seen. ADRENALS: No significant abnormality is seen. KIDNEYS: No significant abnormality is seen. BOWEL: Oral contrast does not reach colonic level. Mild diffuse colonic fecal prominence. No suspicio us small and large bowel dilatation. GENITAL ORGANS: Uterus surgically absent. LYMPH NODES: No greater than 1cm abdominal or pelvic lymph nodes are appreciated. OSSEOUS STRUCTURES: Facet arthropathy mid to lower lumbar spine again. Underlying scoliosis. Metallic artifact from left hip arthroplasty causes streak artifact limiting evaluation of pelvic structures. OTHER: No significant additional abnormality is seen. IMPRESSION: Persistent destructive lesion left anterolateral mid thoracic chest wall thought stable. No new suspicious mass or adenopathy clearly identified.
--- NOTE | 2020-11-01 14:50 | NM ---
EXAMINATION TYPE: NM bone scan whole body DATE OF EXAM: 11/01/2020 COMPARISON: Same day CT. Prior bone scan April 27, 2020 HISTORY: Breast cancer. Delayed whole-body scanning was performed following the injection of 25.2 mCi Tc 99m MDP. Images acq uired 3.75 hours post injection. Whole body projections anterior and posteriorly along with additiona l oblique images of the head and neck thorax and abdomen are acquired. FINDINGS: Underlying scoliosis redemonstrated. Persistent increased radiotracer uptake left anterolateral chest wall consistent with known destructive soft tissue lesion. Additional areas of increased radiotracer uptake throughout the spine are thought to reflect areas of increased degenerative change without si gnificant change from most recent bone scan and no definitive corresponding CT suspicious sclerotic o r lytic lesion. Persistent increased radiotracer uptake bilateral shoulders and right knee level to r eflect degenerative change. Lucency from left knee prosthesis redemonstrated. Increased uptake parana bubba region could reflect sinus disease similar to prior. IMPRESSION: Persistent suspicious uptake left anterolateral mid chest wall corresponds to destructive soft tissue mass. No new areas of osseous neoplastic involvement clearly seen.
== END | disposition home or self-care (01) ==
LOC: RADNMMAIN 08:37
PROVIDERS: ATTEND Internal Medicine Hematology & Oncology
DX: C50.812 Malignant neoplasm of overlapping sites of left female breast (principal); Z03.89 Encounter for observation for other suspected diseases and conditions ruled out
CPT/HCPCS: 82565; 84520; 71260; 74177; 36415; 78306; A9503; Q9967 ×2

== ENCOUNTER → 2020-11-15 | Outpatient (CLI) | payer MEDICARE ==
[2020-11-15 08:10] VITALS: BP 108/65; PULSE 78; RESP 12; TEMP 97.5
--- NOTE | 2020-11-15 09:03 | P.HPOB ---
History of Present Illness H&P Date: 11/15/20 Chief Complaint: The patient is here for her routine gynecologic exam and ma mmogram. This is a 80-year-old with an LMP of 1996. The patient is status post CHERIE/BSO in 1996 for uterine cancer stage IIB grade 2. She is without gynecologic complaints. Review of Systems She has lost about 12 pounds over the past 2 years. She denies respiratory, cardiac and G.I. problems. She denies maltreatment or problems with falling. : She does have some urinary leakage which requires her to wear a pad. Past Medical History Past Medical History: Cancer, Osteoarthritis (OA), Thyroid Disorder Additional Past Medical History / Comment(s): L BREAST,LUNG AND ENDOMETRIAL CA. Osteoporosis and hypothyroidism. 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 History of Any Multi-Drug Resistant Organisms: C-DIFF Date of last positivie culture/infection: 2002 MDRO Source:: STOOL Past Surgical History: Adenoidectomy, Breast Surgery, Hernia Repair, Hysterectomy, Joint Replacement, Tonsillectomy Additional Past Surgical History / Comment(s): LEFT KNEE REPLACED. left MASTECTOMY. RIGHT LOWER LOBECTOMY. LEFT HIP REPLACED. CHERIE BSO in 1996. Past Anesthesia/Blood Transfusion Reactions: No Reported Reaction, Motion Sickness Past Psychological History: No Psychological Hx Reported Smoking Status: Never smoker Past Alcohol Use History: None Reported Past Drug Use History: None Reported Additional History: She is a and is not sexually active. - Past Family History Father History Unknown: Yes Family Medical History: Unable to Obtain Daughter(s) Additional Family Medical History / Comment(s): Daughter has Crohn's disease. Mother Family Medical History: Coronary Artery Disease (CAD) Additional Family Medical History / Comment(s): CARDIAC VALVE PROBLEMS Brother(s) Family Medical History: Mitral Valve Prolapse (MVP) Additional Family Medical History / Comment(s): VALVE REPLACED. Medications and Allergies Home Medications Medication Instructions Recorded Confirmed Type Exemestane 25 mg PO QAM 09/16/14 11/15/20 History traMADol HCL [Ultram] 50 mg PO Q6HR PRN #90 tab 10/01/14 11/15/20 Rx Levothyroxine Sodium [Synthroid] 50 mcg PO DAILY 10/21/16 09/21/21 History Aspirin [Adult Low Dose Aspirin EC] 81 mg PO DAILY 05/28/17 11/15/20 History Ibuprofen [Motrin] 600 mg PO Q8HR PRN 05/28/17 11/15/20 History atenoloL [Tenormin] 25 mg PO DAILY 05/28/17 11/15/20 History Allergies Allergy/AdvReac Type Severity Reaction Status Date / Time celecoxib [From Celebrex] Allergy Rash/Hives Verified 11/15/20 07:53 Sulfa (Sulfonamide Allergy Rapid Verified 11/15/20 07:53 Antibiotics) Heart Rate Penicillins AdvReac PATIENT Verified 11/15/20 07:53 HAS A HX OF C-DIFF, WAS TOLD BY DR REBOLLAR TO NO USE Exam Vital Signs Temp Pulse Resp BP Pulse Ox 11/15/20 07:55 97.5 F L 78 12 108/65 100 Intake and Output 11/14/20 11/15/20 11/15/20 22:59 06:59 14:59 Other: Weight 64.41 kg Height 5 feet 6 inches, weight 142 pounds, BMI 22.9. This is a well-developed well-nourished white female who is alert and oriented times 3 in no acute distress. The patient has a very slow gait and seems to have limited mobility at her hips. HEENT: Within normal limits. NECK: Supple without mass or thyromegaly. CHEST AND LUNGS: Clear to auscultation. HEART: Regular rate and rhythm. BREASTS: Exam is consistent with previous left mastectomy. The right breast is without lesions or nipple discharge. There are no masses or skin changes at the area of the left mastectomy. AXILLARY EXAM: Negative for adenopathy. BACK: Negative for CVA tenderness. ABDOMEN: Soft, nontender, without palpable masses. PELVIC EXAM: External genitalia reveals severe atrophy with some generalized erythema. Vagina appears normal with moderate to severe atrophy. The vagina is somewhat shortened consistent with her previous radiation therapy. There are no vaginal lesions. There is no evidence of prolapse. Bimanual examination is negative for mass or tenderness. RECTAL EXAM: Rectovaginal exam is negative for mass or tenderness and is negative for occult blood. EXTREMITIES: Nontender. IMPRESSION: 1. 80-year-old menopausal female status post CHERIE/BSO for uterine cancer in 1996 with no evidence of recurrence at this time. 2. Severe genital atrophy with some chronic vulvar inflammation secondary to chronic pad use. 3. History of osteoporosis now taking Fosamax through her PCP. PLAN: 1. Pap smears will be discontinued. This is since she has had a hysterectomy and it has been greater than 20 years since her hysterotomy for uterine cancer. 2. Self breast awareness was discussed with the patient. We have also discussed symptoms associated with inflammatory breast cancer. 3. Diagnostic right mammogram will be done today. 4. Osteoporosis management was discussed with the patient. I stressed the importance of continuing to get adequate calcium, vitamin D and regular exercise She is now on medication for her osteoporosis. She states she believes she has had more joint pains on Fosamax and they're talking of changing her to an injectable medication for osteoporosis. She is not sure of the name of the medication. This will be managed by her PCP and oncologist. 5. She has completed her Covid vaccination series. 6. She was advised to use a small amount of petroleum jelly to the vulva as a protective layer. She denies itching or irritation symptoms. 7. She was advised to return in one year for her annual well woman exam and as needed.
--- NOTE | 2020-11-15 10:02 | MM ---
Reason for exam: additional evaluation requested from prior study. Last mammogram was performed 1 year ago. History: Patient is postmenopausal, has history of high-risk lesion on a previous biopsy at age 64, has history of endometrial cancer at age 56, and has history of breast cancer at age 53. Mastectomy of the left breast, 1993. Excisional biopsy of the right breast, 1990. Chemotherapy. Taking tamoxifen for 10 years 5 months beginning at age 61. Physical Findings: Breast exam performed by Dr. Machado. MG Diagnostic Mammo RT w CAD CC and MLO view(s) were taken of the right breast. Prior study comparison: November 05, 2019, right breast MG 3d diag mammo w/cad RT. June 12, 2018, right breast MG diagnostic mammo RT w CAD. May 28, 2017, right breast MG diagnostic mammo RT w CAD. The breast tissue is heterogeneously dense. This may lower the sensitivity of mammography. No significant new findings when compared with previous films. These results were verbally communicated with the patient and result sheet given to the patient on 11/15/20. ASSESSMENT: Benign, BI-RAD 2 RECOMMENDATION: Follow-up diagnostic mammogram of the right breast in 1 year.
== END ==
LOC: WWCWWP 07:44
PROVIDERS: ATTEND Obstetrics & Gynecology
DX: Z08 Encounter for follow-up examination after completed treatment for malignant neoplasm (principal); Z85.3 Personal history of malignant neoplasm of breast
CPT/HCPCS: 77065

== ENCOUNTER → 2021-05-01 | Outpatient (CLI) | payer MEDICARE ==
--- NOTE | 2021-05-01 10:59 | CT ---
EXAMINATION TYPE: CT Chest Abd Pelvis w con DATE OF EXAM: 05/01/2021 COMPARISON: CT dated 11/01/2020 HISTORY: Breast CA with suspected mets CT DLP: 697.9 mGycm Automated exposure control for dose reduction was used. CONTRAST: CT scan of the chest, abdomen and pelvis is performed with Oral Contrast and with IV Contrast, patien t injected with 80 mL of Isovue 300. FINDINGS: LUNGS: Newly seen focal reticulonodular infiltrates at the lateral aspect of the left lower lobe supe rior segment with nodules measuring up to 10 mm. Slightly more prominent right lower lobe nodule harper uring 8.5 mm compared to 7.5 mm previously. Prominent left upper lobe nodule measuring 3.4 mm compare d to 2.2 mm previously. Unchanged remainder of the lungs. No pleural effusion. MEDIASTINUM: Slight cardiac enlargement. Coronary and arterial atherosclerotic calcifications. Dilate d right pulmonary artery measuring up to 3.4 cm suggestive of pulmonary hypertension. No major or denis tral pulmonary embolism. No pathologically enlarged or progressive lymph nodes in the chest. No peric ardial effusion. OTHER: Previous left mastectomy. Redemonstration of the lytic lesion involving the anterior aspect o f the left fifth rib with extraosseous soft tissue component, roughly measuring 5.9 x 3 cm compared t o 6.1 x 3 cm previously. More prominent lesion involving the inferior aspect of the left side of the sternum measuring 2.9 x 1.7 cm with extraosseous soft tissue component compared to 1.7 x 1.2 cm previ ously. Diffuse osteopenia. Subtle sclerotic areas are seen in the visualized bones, nonspecific, plea se correlate with bone scan results. Persistent dextroscoliosis of the lower thoracic spine. LIVER/GB: Stable right hepatic lobe inferior cyst, otherwise unremarkable liver with no definite hepa tic focal lesion. Questionable tiny millimetric gallbladder neck stone/polyp, otherwise unremarkable gallbladder. PANCREAS: No significant abnormality is seen. SPLEEN: No significant abnormality is seen. ADRENALS: Stable thickened left adrenal. Unremarkable right adrenal. KIDNEYS: Unremarkable. BOWEL: Unremarkable nondistended stomach, duodenum and small bowel. Fecal loading of the colon. No g ross colonic mass however a small lesion cannot be excluded. REPRODUCTIVE ORGANS: Suboptimally assessed. LYMPH NODES: No pathologically enlarged abdominal or pelvic lymph nodes. OSSEOUS STRUCTURES: Osteopenia. Persistent levoscoliosis of the lumbar spine. Left hip arthroplasty. Subtle sclerotic foci within the visualized bones, please correlate with bone scan results. OTHER: Extensive arterial atherosclerotic calcifications. No sizable ascites. IMPRESSION: 1. Newly seen left lower lobe superior segment focal reticulonodular infiltrates which could be relat ed to acute inflammatory/infectious process however new metastasis cannot be excluded. 2. Slightly larger left upper lobe and right lower lobe lung nodules. 3. Stable left fifth rib lytic lesion with extraosseous component with slightly larger left inferior sternal lesion, likely representing progressive metastasis. Other scattered subtle sclerotic areas in the visualized bones, possibly insignificant, please correlate with bone scan results. 4. No other metastatic disease seen in the chest, abdomen or the pelvis. The overall picture is sugge stive of a progressive disease. Further PET scan assessment can be considered. Other incidental findi ngs as described above.
--- NOTE | 2021-05-01 13:01 | NM ---
EXAMINATION TYPE: NM bone scan whole body DATE OF EXAM: 05/01/2021 COMPARISON: PET/CT 11/01/2020, CT scan 05/01/2021 HISTORY: Metastatic disease, breast carcinoma Delayed whole-body scanning was performed following the injection of 23.5 mCi Tc 99m MDP. Images acq uired 3.25 hours post injection. FINDINGS: The areas of abnormal uptake seen on prior scan show a similar appearance. Soft tissue uptake is norm al. The destructive chest wall mass in the left lower chest shows some corresponding uptake. No signi ficant change in distribution of abnormal uptake compared to prior exam. Postop changes are noted to the left hip and left knee. Some uptake within the right hand, feet is likely degenerative. Shoulder uptake also likely degenerative. Abnormal sclerosis in the posterior elements of the third thoracic vertebral body on CT shows associa alyssa uptake, multiple posterior right-sided ribs include the fifth, sixth and seventh ribs on the righ t seen on CT, suspect some associated uptake present in one of the ribs, posterior and lateral left r ib uptake is noted on the left at approximately the fifth rib, lytic sternal lesion also shows associ ated uptake. IMPRESSION: Metastatic lesions to bone show abnormal uptake similar to prior exam.
== END | disposition home or self-care (01) ==
LOC: RADNMMAIN 08:18
PROVIDERS: ATTEND Internal Medicine Hematology & Oncology
DX: Z03.89 Encounter for observation for other suspected diseases and conditions ruled out (principal); C50.512 Malignant neoplasm of lower-outer quadrant of left female breast; R91.8 Other nonspecific abnormal finding of lung field; R91.1 Solitary pulmonary nodule
CPT/HCPCS: 82565; 84520; 71260; 74177; 36415; 78306; A9503; Q9967

== ENCOUNTER → 2021-06-15 | Outpatient (CLI) | payer MEDICARE ==
[2021-06-15 14:32] LABS: Basophils # (A) 0.07 X 10*3/uL (0.00-0.10); Basophils % (A) 1.4 %; Eosinophils # (A) 0.14 X 10*3/uL (0.04-0.35); Eosinophils % (A) 2.9 %; HCT 38.8 % (37.2-46.3); HGB 11.7 g/dL (12.0-15.0); Immature Grans, Automated 0.2 %; Lymphocytes # (A) 0.97 X 10*3/uL (0.90-5.00); MCH 29.8 pg (27.0-32.0); MCHC 30.2 g/dL (32.0-37.0); MCV 98.7 fL (80.0-97.0); Monocytes # (A) 0.48 X 10*3/uL (0.20-1.00); Monocytes % (A) 9.9 %; NRBC Per 100 WBC 0 /100 WBCS (0.0-0.0); Neutrophils # (A) 3.19 X 10*3/uL (1.80-7.70); Neutrophils % (A) 65.6 %; Platelet Count 273 X 10*3/uL (140-440); RBC 3.93 X 10*6/uL (4.10-5.20); RDW 14.9 % (11.5-14.5); WBC 4.86 X 10*3/uL (4.50-10.00)
[2021-06-15 15:02] LABS: ALT 10 U/L (8-44); AST 21 U/L (13-35); African American GFR (CKD) 77.6 (60.0-200.0); Albumin 4.3 g/dL (3.8-4.9); Albumin/Globulin Ratio 1.49 (1.60-3.17); Alkaline Phosphatase 60 U/L (41-126); BUN/Creat Ratio 32.73 Ratio (12.00-20.00); Blood Urea Nitrogen 27.2 mg/dL (9.0-27.0); Calcium 9.2 mg/dL (8.7-10.3); Chloride 105 mmol/L (96-109); Chol/HDL Ratio 2.53 Ratio; Ferritin 68.5 ng/mL (10.0-291.0); Globulin 2.9 g/dL (1.6-3.3); Glucose 86 mg/dL (70-110); Iron 53 ug/dL (50-170); LDL Cholesterol,Calculated 91.8 mg/dL (0.0-131.0); Potassium 4.3 mmol/L (3.5-5.5); Sodium 139 mmol/L (135-145); Total Protein 7.3 g/dL (6.2-8.2); VLDL Calculation 10.28 mg/dL (5.00-40.00); Vitamin B12 >2000.0 pg/mL (200.0-944.0)
== END | disposition home or self-care (01) ==
LOC: LABWHC1 09:24
PROVIDERS: ATTEND Family Medicine
DX: R73.9 Hyperglycemia, unspecified (principal); D64.9 Anemia, unspecified; E53.8 Deficiency of other specified B group vitamins; E55.9 Vitamin D deficiency, unspecified
CPT/HCPCS: 36415; 80053; 80061; 82306; 82607; 82728; 83036; 83540; 84443; 85025

== ENCOUNTER → 2021-08-03 | Outpatient (CLI) | payer MEDICARE ==
--- NOTE | 2021-08-03 10:34 | CT ---
EXAMINATION TYPE: CT ChestAbdPelvis w con DATE OF EXAM: 08/03/2021 COMPARISON: CT dated 05/01/2021 HISTORY: Follow up on breast cancer CT DLP: 998 mGycm Automated exposure control for dose reduction was used. CONTRAST: CT scan of the chest, abdomen and pelvis is performed with Oral Contrast and with IV Contrast, patien t injected with 70 mL of Isovue 300. FINDINGS: LUNGS: The previously seen left lower lobe superior segment reticulonodular infiltrates have slightly improved in the interim being smaller in thickness and density, difficult to precisely measure. Jovanna sly stable 9 mm nodule in the right lower lobe as well as the left upper lobe nodules measuring up to 3 mm. No new suspicious or progressive lung lesion. No pleural effusion. MEDIASTINUM: No pathological enlarged or progressive lymphadenopathy in the chest. Persistent cardiom egaly, arterial calcification and dilated pulmonary trunk. No pericardial effusion. OTHER: Diffuse osteopenia. Stable bone destruction and extraosseous soft tissue component involving the anterior aspect of the left fifth rib. The patient is known to have skeletal metastasis. No gross signs of progressive osseous metastasis. LIVER/GB: Stable right hepatic lobe inferior cyst. No other hepatic focal lesion. Tiny gallbladder ca lculus. PANCREAS: No significant abnormality is seen. SPLEEN: No significant abnormality is seen. ADRENALS: Stable thickened left adrenal. Unremarkable right adrenal. KIDNEYS: No significant abnormality is seen. BOWEL: No significant abnormality is seen. REPRODUCTIVE ORGANS: Obscured by artifacts. LYMPH NODES: No greater than 1 cm abdominal or pelvic lymph nodes are appreciated. OSSEOUS STRUCTURES: Grossly unchanged. OTHER: Arterial atherosclerotic calcifications. No sizable ascites. IMPRESSION: Interval improvement of the previously seen reticulonodular infiltrates in the left lower lobe superi or segment as described above. This could represent a persistent inflammatory/infectious process baez janie improving pulmonary metastasis cannot be excluded. Otherwise grossly stable remainder of the pulmonary nodules and the known osseous metastasis. Other f indings as described above.
== END | disposition home or self-care (01) ==
LOC: RADCTMAIN 07:53
PROVIDERS: ATTEND Internal Medicine Hematology & Oncology
DX: C50.512 Malignant neoplasm of lower-outer quadrant of left female breast (principal); R91.8 Other nonspecific abnormal finding of lung field
CPT/HCPCS: 82565; 84520; 71260; 74177; 36415; Q9967 ×2

== ENCOUNTER → 2021-11-13 | Outpatient (CLI) | payer MEDICARE ==
--- NOTE | 2021-11-13 16:13 | NM ---
EXAMINATION TYPE: NM bone scan whole body DATE OF EXAM: 11/13/2021 COMPARISON: 05/01/2021 HISTORY: Breast cancer Delayed whole-body scanning was performed following the injection of 23.4 mCi Tc 99m MDP. Images wer e acquired 3 hours post injection. FINDINGS: There is uptake within the L1 region of the lumbar spine. This has increased uptake compared to the p rior examination. Metastatic disease should be considered. There is increased uptake in the region of T11 and T12. Metastatic disease should be considered at th is location. There is focal uptake within the upper thoracic region of T2. This was present previously. Left posterior T4 rib uptake is present. This may be increasing in length over the interval. There is abnormal uptake along the lateral anterior chest wall, present previously. Uptake within the sternum appears to be present. There is increased uptake along the lateral distal cortex of the right femur. This is increasing. Con director economic metastatic disease. Left knee left hip prostheses are present. Uptake in the regions of the shoulders may be degenerative in nature. Uptake at the right carpal metacarpal junction is likely degenerative. Injection of the r ight antecubital fossa is likely present. IMPRESSION: 1. Scattered areas of increasing or new radiotracer suggestive for metastatic disease discussed above . This would include most prominently the left posterior fourth rib lower thoracic and upper lumbar s pine in lateral cortex of the distal right femur. 2. Additional areas of suspected metastatic disease including the sternum and the left chest wall.
--- NOTE | 2021-11-14 10:43 | CT ---
EXAMINATION TYPE: CT ChestAbdPelvis w con DATE OF EXAM: 11/13/2021 INDICATION: pain COMPARISON: 08/03/2021 CT DLP: 949 mGycm CONTRAST: Performed with Oral Contrast and with IV Contrast, patient injected with 80 mL of Isovue 300. TECHNIQUE: Axial images at 5 mm thick sections. Reconstructed images in the coronal plane. Delayed images through the kidneys. FINDINGS: CT CHEST: Left breast prosthesis is present. Portion of the thyroid visualized is normal. Some minimal pneumonitis change may be in the posterior lateral left lung. Image 27. There is a nodule within the posterior right lung 1.3 x 0.6 cm. Image. There is an expansile heterogenous lesion within the anterior left lower ribs. As measures 7.2 x 3.5 cm and appears stable from comparison. Images 36 series 3. No enlarged mediastinal or hilar adenopathy is evident. The ascending aorta diameter at the level of the main pulmonary artery is 3.7 cm. The main pulmonary artery diameter at the bifurcation is 3.7 cm. Coronary artery calcification is present. CT ABDOMEN: Liver: There is a 1.2 cm cyst within the inferior right lobe liver. Spleen: Normal Pancreas: Normal Adrenal glands: The adrenal glands are normal. Gallbladder: Normal Kidneys: No masses are evident. No hydronephrosis is present. No cysts are present. Delayed images were obtained through the kidneys, which remain unremarkable. Aorta: Vascular calcification is within the aorta. Inferior vena cava: Normal. CT PELVIS: Beam hardening from a left hip prosthesis limits the lower portion of the pelvis evaluatio n. There is some wall thickening diffusely within the distal transverse colon example image series 3 paulino ge [id number] additional workup for neoplasm is recommended. There are loops of bowel which are incompletely distended or lack oral contrast limiting their evaluation. There is fecal debris within the colon cau sing some limitation. Appendix: Not identified. No dilated tubular structure or inflammatory changes evident. Urinary bladder: Normal. Genitourinary structures: Uterus and ovaries are not identified. Osseous structures: No suspicious lytic or sclerotic lesions. Facet changes are within the lower lumb ar spine. Scoliosis thoracolumbar spine. IMPRESSIONS: 1. Expansile lesion appears stable in the region of the anterior left fifth rib region. 2. There may be some thickening within the distal transverse colon. Additional workup is recommended. Neoplasm is not excluded. 3. Stable appearance of a right lower lobe nodule.
== END | disposition home or self-care (01) ==
LOC: RADNMMAIN 10:02
PROVIDERS: ATTEND Internal Medicine Hematology & Oncology
DX: C50.512 Malignant neoplasm of lower-outer quadrant of left female breast (principal)
CPT/HCPCS: 82565; 84520; 71260; 74177; 36415; 78306; A9503; Q9967

== ENCOUNTER 2022-06-16 21:00 | Inpatient (IN) | payer MEDICARE ==
--- NOTE | 2022-06-16 21:46 | ED ---
General Adult HPI - General Chief complaint: Weakness Stated complaint: Decreased Mobility Time Seen by Provider: 06/16/22 21:02 Source: patient, EMS Mode of arrival: EMS Limitations: no limitations - History of Present Illness Initial comments: This is an 82-year-old female with a past mental history including breast cancer currently on chemotherapy presents emergency department via EMS for increased weakness and multiple falls. Is reported by the patient that she has had multiple falls with her last fall being one month ago. The patient is mostly in her chair at home and does need full help and assistance to get and out of with her son. Because the son could not get her up out of the chair and because of her increased weakness, the son called EMS for the patient to be further evaluated. On arrival, the patient was alert, able to answer all questions appropriately and stated that she denied of any pain. The patient did report that she's been increasingly weak over the last several months and stated that his is been progressively getting worse. The patient denied any recent pain from the recent fall and was resting in bed comfortably. - Related Data Home Medications Medication Instructions Recorded Confirmed Ibuprofen [Motrin] 300 mg PO TID 05/28/17 06/16/22 Ribociclib Succinate [Kisqali] 600 mg PO DAILY 06/16/22 06/16/22 Allergies Allergy/AdvReac Type Severity Reaction Status Date / Time celecoxib [From Celebrex] Allergy Rash/Hives Verified 06/16/22 22:17 Sulfa (Sulfonamide Allergy Rapid Verified 06/16/22 22:17 Antibiotics) Heart Rate Penicillins AdvReac Verified 06/16/22 22:17 Review of Systems ROS Statement: Those systems with pertinent positive or pertinent negative responses have been documented in the HPI. ROS Other: All systems not noted in ROS Statement are negative. Past Medical History Past Medical History: Cancer, Osteoarthritis (OA), Thyroid Disorder Additional Past Medical History / Comment(s): L BREAST,LUNG AND ENDOMETRIAL CA. Osteoporosis and hypothyroidism. 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 History of Any Multi-Drug Resistant Organisms: C-DIFF Date of last positivie culture/infection: 2002 MDRO Source:: STOOL Past Surgical History: Adenoidectomy, Breast Surgery, Hernia Repair, Hysterectomy, Joint Replacement, Tonsillectomy Additional Past Surgical History / Comment(s): LEFT KNEE REPLACED. left MASTECTOMY. RIGHT LOWER LOBECTOMY. LEFT HIP REPLACED. [facility] BSO in 1996. Past Anesthesia/Blood Transfusion Reactions: No Reported Reaction, Motion Sickness Past Psychological History: No Psychological Hx Reported Smoking Status: Never smoker Past Alcohol Use History: None Reported Past Drug Use History: None Reported - Past Family History Father History Unknown: Yes Family Medical History: Unable to Obtain Daughter(s) Additional Family Medical History / Comment(s): Daughter has Crohn's disease. Mother Family Medical History: Coronary Artery Disease (CAD) Additional Family Medical History / Comment(s): CARDIAC VALVE PROBLEMS Brother(s) Family Medical History: Mitral Valve Prolapse (MVP) Additional Family Medical History / Comment(s): VALVE REPLACED. General Exam Limitations: no limitations, physical limitation General appearance: alert, in no apparent distress Head exam: Present: atraumatic, normocephalic, normal inspection Eye exam: Present: normal appearance, PERRL Pupils: Present: normal accommodation ENT exam: Present: normal exam, normal oropharynx, mucous membranes moist Neck exam: Present: normal inspection, full ROM Respiratory exam: Present: normal lung sounds bilaterally Cardiovascular Exam: Present: regular rate, normal rhythm, normal heart sounds GI/Abdominal exam: Present: soft, normal bowel sounds Extremities exam: Present: normal inspection, full ROM, pedal edema Back exam: Present: normal inspection, full ROM Neurological exam: Present: alert, oriented X3, CN II-XII intact Psychiatric exam: Present: normal affect, normal mood Skin exam: Present: warm, dry Course Vital Signs 06/16/22 06/16/22 21:02 23:12 Temperature 98.4 F Pulse Rate 76 83 Respiratory 16 16 Rate Blood Pressure 135/66 134/63 O2 Sat by Pulse 96 97 Oximetry EKG Findings - EKG Comments: EKG Findings:: An EKG was obtained and was interpreted by myself showing a rate of 75, WI interval 158, QRS duration 97 and QTC of 420. This EKG showed a normal sinus rhythm with no ST segment elevation or depression noted. Medical Decision Making - Medical Decision Making Was pt. sent in by a medical professional or institution (, PA, FLOOR SCRUBBER, urgent care, hospital, or half-way...) When possible be specific @ -No Did you speak to anyone other than the patient for history (EMS, parent, family, police, friend...)? What history was obtained from this source @ -No Did you review nursing and triage notes (agree or disagree)? Why? @ -I reviewed and agree with nursing and triage notes Were old charts reviewed (outside hosp., previous admission, EMS record, old EKG, old radiological studies, urgent care reports/EKG's, half-way records)? Report findings @ -No old charts were reviewed Differential Diagnosis (chest pain, altered mental status, abdominal pain women, abdominal pain men, vaginal bleeding, weakness, fever, dyspnea, syncope, headache, dizziness, GI bleed, back pain, seizure, CVA, palpatations, mental health)? @ -Failure to thrive, generalized weakness, multiple falls, metastatic breast cancer EKG interpreted by me (3pts min.). @ -As above X-rays interpreted by me (1pt min.). @ -Chest x-ray was obtained and was interpreted by myself showing left airspace consolidation concerning for acute inflammatory process versus infectious process. There was also multifocal nodular right lower lobe opacities. There is findings retained to the upper thoracic vertebra consistent with likely m etastatic disease. X-ray of the pelvis was also obtained and was interpreted by myself showing no acute process. There was degenerative changes of the lumbar spine and right hip joint. CT interpreted by me (1pt min.). @ -CT head and CT C-spine were obtained and were interpreted by myself showing no acute intracranial process. There was nonspecific white matter changes. There was aggressive osteoblastic an osteolytic changes involving the spinous processes and posterior elements of the upper thoracic for T of breath and left ribs, consistent with metastatic disease. This is also consistent with the patient's current treatment for metastatic breast cancer. There is also a left upper lobe 6 mm pulmonary nodule. There was multilevel degenerative disc disease. U/S interpreted by me (1pt. min.). @ -None done What testing was considered but not performed or refused? (CT, X-rays, U/S, labs)? Why? @ -None What meds were considered but not given or refused? Why? @ -None Did you discuss the management of the patient with other professionals (professionals i.e. , PA, FLOOR SCRUBBER, lab, RT, psych nurse, social media assistant, rhit, teacher, anti air warfare operations officer, major case detective)? Give summary @ -Yes, admitting team was contacted and agreed to admit the patient. Was smoking cessation discussed for >3mins.? @ -No Was critical care preformed (if so, how long)? @ -No Were there social determinants of health that impacted care today? How? (Homelessness, low income, unemployed, alcoholism, drug addiction, transportation, low edu. Level, literacy, decrease access to med. care, usp, rehab)? @ -No Was there de-escalation of care discussed even if they declined (Discuss DNR or withdrawal of care, Hospice)? DNR status @ -No What co-morbidities impacted this encounter? (DM, HTN, Smoking, COPD, CAD, Cancer, CVA, ARF, Chemo, Hep., AIDS, mental health diagnosis, sleep apnea, morbid obesity)? @ -Metastatic breast cancer Was patient admitted / discharged? Hospital course, mention meds given and route, prescriptions, significant lab abnormalities, going to OR and other pertinent info. @ -The patient was seen and evaluated in the emergency department. On physical exam, the patient was resting in bed without any acute distress. Vital signs were stable. Workup was obtained including likely metastatic breast cancer lesions causing left-sided rib pain. Due to the nature the patient's failure to thrive in the setting of inability to ambulate at home on her own, the patient will be admitted for further workup and evaluation and likely placement into rehabilitation centers. The patient and her family were told of this plan and were agreeable. The patient was admitted in stable condition. Undiagnosed new problem with uncertain prognosis? @ -No Drug Therapy requiring intensive monitoring for toxicity (Heparin, Nitro, Insuli n, Cardizem)? @ -No Were any procedures done? @ -No Diagnosis/symptom? @ -Failure to thrive, metastatic breast cancer Acute, or Chronic, or Acute on Chronic? @ -Acute on chronic Uncomplicated (without systemic symptoms) or Complicated (systemic symptoms)? @ -Complicated Side effects of treatment? @ -No Exacerbation, Progression, or Severe Exacerbation? @ -No Poses a threat to life or bodily function? How? (Chest pain, [place], [place], pneumonia, PE, COPD, DKA, ARF, appy, cholecystitis, CVA, Diverticulitis, Homicidal, Suicidal, threat to staff... and all critical care pts) @ -Yes, continued failure to thrive can lead to permanent damage and possible . - Lab Data Result diagrams: 06/16/22 21:31 06/16/22 21:31 Lab Results 06/16/22 06/16/22 06/16/22 Range/Units 21:31 21:31 21:31 WBC 6.7 (3.8-10.6) k/uL RBC 2.76 L (3.80-5.40) m/uL Hgb 9.6 L (11.4-16.0) gm/dL Hct 29.1 L (34.0-46.0) % MCV 105.4 H (80.0-100.0) fL MCH 34.6 (25.0-35.0) pg MCHC 32.9 (31.0-37.0) g/dL RDW 14.5 (11.5-15.5) % Plt Count 224 (150-450) k/uL MPV 8.1 Neutrophils % 84 % Lymphocytes % 6 % Monocytes % 7 % Eosinophils % 0 % Basophils % 0 % Neutrophils # 5.6 (1.3-7.7) k/uL Lymphocytes # 0.4 L (1.0-4.8) k/uL Monocytes # 0.5 (0-1.0) k/uL Eosinophils # 0.0 (0-0.7) k/uL Basophils # 0.0 (0-0.2) k/uL Macrocytosis Moderate PT 11.6 (9.0-12.0) sec INR 1.1 (<1.2) APTT 23.6 (22.0-30.0) sec Sodium 139 (137-145) mmol/L Potassium 3.2 L (3.5-5.1) mmol/L Chloride 108 H (98-107) mmol/L Carbon Dioxide 22 (22-30) mmol/L Anion Gap 9 mmol/L BUN 19 H (7-17) mg/dL Creatinine 0.56 (0.52-1.04) mg/dL Est GFR (CKD-EPI)AfAm >90 (>60 ml/min/1.73 sqM) Est GFR (CKD-EPI)NonAf 88 (>60 ml/min/1.73 sqM) Glucose 108 H (74-99) mg/dL Calcium 7.7 L (8.4-10.2) mg/dL Magnesium 1.9 (1.6-2.3) mg/dL Total Bilirubin 0.3 (0.2-1.3) mg/dL AST 24 (14-36) U/L ALT 18 (4-34) U/L Alkaline Phosphatase 99 (38-126) U/L Troponin I (0.000-0.034) ng/mL NT-Pro-B Natriuret Pep pg/mL Total Protein 5.9 L (6.3-8.2) g/dL Albumin 3.0 L (3.5-5.0) g/dL Lipase 95 (23-300) U/L Urine Color Urine Appearance (Clear) Urine pH (5.0-8.0) Ur Specific Calhoun (1.001-1.035) Urine Protein (Negative) Urine Glucose (UA) (Negative) Urine Ketones (Negative) Urine Blood (Negative) Urine Nitrite (Negative) Urine Bilirubin (Negative) Urine Urobilinogen (<2.0) mg/dL Ur Leukocyte Esterase (Negative) 06/16/22 06/16/22 06/16/22 Range/Units 21:31 21:31 22:49 WBC (3.8-10.6) k/uL RBC (3.80-5.40) m/uL Hgb (11.4-16.0) gm/dL Hct (34.0-46.0) % MCV (80.0-100.0) fL MCH (25.0-35.0) pg MCHC (31.0-37.0) g/dL RDW (11.5-15.5) % Plt Count (150-450) k/uL MPV Neutrophils % % Lymphocytes % % Monocytes % % Eosinophils % % Basophils % % Neutrophils # (1.3-7.7) k/uL Lymphocytes # (1.0-4.8) k/uL Monocytes # (0-1.0) k/uL Eosinophils # (0-0.7) k/uL Basophils # (0-0.2) k/uL Macrocytosis PT (9.0-12.0) sec INR (<1.2) APTT (22.0-30.0) sec Sodium (137-145) mmol/L Potassium (3.5-5.1) mmol/L Chloride (98-107) mmol/L Carbon Dioxide (22-30) mmol/L Anion Gap mmol/L BUN (7-17) mg/dL Creatinine (0.52-1.04) mg/dL Est GFR (CKD-EPI)AfAm (>60 ml/min/1.73 sqM) Est GFR (CKD-EPI)NonAf (>60 ml/min/1.73 sqM) Glucose (74-99) mg/dL Calcium (8.4-10.2) mg/dL Magnesium (1.6-2.3) mg/dL Total Bilirubin (0.2-1.3) mg/dL AST (14-36) U/L ALT (4-34) U/L Alkaline Phosphatase (38-126) U/L Troponin I <0.012 (0.000-0.034) ng/mL NT-Pro-B Natriuret Pep 3090 pg/mL Total Protein (6.3-8.2) g/dL Albumin (3.5-5.0) g/dL Lipase (23-300) U/L Urine Color Yellow Urine Appearance Clear (Clear) Urine pH 6.0 (5.0-8.0) Ur Specific Cal[place]oun 1.020 (1.001-1.035) Urine Protein Trace H (Negative) Urine Glucose (UA) Negative (Negative) Urine Ketones Negative (Negative) Urine Blood Negative (Negative) Urine Nitrite Negative (Negative) Urine Bilirubin Negative (Negative) Urine Urobilinogen <2.0 (<2.0) mg/dL Ur Leukocyte Esterase Negative (Negative) Disposition Clinical Impression: Weakness, Failure to thrive, Carcinoma of breast metastatic to bone Disposition: ADMITTED IP TO THIS [facility] Condition: Stable Is patient prescribed a controlled substance at d/c from ED?: No Referrals: Fadi Singh MD [Primary Care Provider] - 1-2 days Time of Disposition: 22:10 Decision to Admit Reason: Admit from EC Decision Date: 06/16/22 Decision Time: 22:10
[2022-06-16 21:49] LABS: INR 1.1 (<1.2); Partial Thromboplastin Time 23.6 sec (22.0-30.0); Prothrombin Time 11.6 sec (9.0-12.0)
[2022-06-16 21:50] LABS: ALT 18 U/L (4-34); AST 24 U/L (14-36); African American GFR (CKD) >90 (>60 ml/min/1.73 sqM); Alkaline Phosphatase 99 U/L (38-126); Anion Gap 9 mmol/L; Blood Urea Nitrogen 19 mg/dL (7-17); Calcium 7.7 mg/dL (8.4-10.2); Carbon Dioxide 22 mmol/L (22-30); Chloride 108 mmol/L (98-107); Glucose 108 mg/dL (74-99); Lipase 95 U/L (23-300); Magnesium 1.9 mg/dL (1.6-2.3); Non-African American GFR(CKD) 88 (>60 ml/min/1.73 sqM); Potassium 3.2 mmol/L (3.5-5.1); Sodium 139 mmol/L (137-145); Total Bilirubin 0.3 mg/dL (0.2-1.3); Total Protein 5.9 g/dL (6.3-8.2)
--- NOTE | 2022-06-16 22:09 | CT ---
EXAMINATION TYPE: CT brain cspine wo con CT DLP: 1308.8 mGycm, Automated exposure control for dose reduction was used. DATE OF EXAM: 06/16/2022 9:48 PM COMPARISON: CT chest abdomen pelvis 11/13/2021. CLINICAL INDICATION:Female, 82 years old with history of Trauma; Weakness history of breast cancer TECHNIQUE: Brain: Multiple axial CT images of the brain were obtained without IV contrast. Cspine: Axial CT images from the skull base to the inferior aspect of T2 we obtained without intraven ous contrast. Coronal and sagittal reformatted images were also reviewed. FINDINGS: Brain: Extra-axial spaces: No abnormal extra-axial fluid collections. Ventricular system: Dilatation in proportion to cerebral atrophy. Cerebral parenchyma: Cerebral atrophy. No acute intraparenchymal hemorrhage or mass effect. The carmona -white junction is well differentiated. Scattered hypoattenuating areas are seen within the white mat ter. Cerebellum: Unremarkable. Mass effect: No evidence of midline shift. Intracranial vasculature: Atherosclerotic calcifications of the intracranial vessels. Soft tissues: Normal. Calvarium/osseous structures: No depressed skull fracture. Paranasal sinuses and mastoid air cells: Clear.Mastoid air cells are Clear Visualized orbits: Orbital contents are intact. Cervical spine: Fracture: No evidence for cervical spine fracture. Aggressive lytic changes are detailed inferiorly. Congenital nonunion of the posterior arch of C1. Osseous structures: There are aggressive, lytic changes involving the spinous process and posterior e lements of T2, T3, T4, T5 and T6 (series 304, image [id number]). Multiple areas of cortical breakthrough a re noted involving the posterior elements and spinous processes. No vertebral body height loss apprec iated. Focal areas of sclerosis involving the posterior vertebral body and posterior elements of T3-T 6. Multilevel degenerative disc disease changes with endplate spurring and disc osteophyte complex's. Uncovertebral and facet hypertrophy. Vertebral alignment: Mild levoscoliosis which may be positional. Craniocervical and cervical thoracic junctions are normally aligned Spinal canal/Neural Foramina: Disc osteophyte complexes at C5-C6 and C6-C7 with at least mild spinal canal stenosis. No evidence for significant neural foraminal stenosis. Neck soft tissues: Prevertebral soft tissues are within normal limits. Other: Large airways are patent. Scarring of the right lung apex. Noncalcified left upper lobe pulmon hans nodule measures 6 mm (series 305, image 103). Focal sclerosis involving the posterior left ribs 3 -6. IMPRESSION: 1. No acute intracranial process. 2.Nonspecific white matter changes, likely secondary to chronic small vessel ischemic disease. 3. Aggressive osteoblastic and osteolytic changes involving the spinous processes and posterior eleme nts of the upper thoracic vertebra and left ribs, findings are consistent with osseous metastasis giv en history of breast cancer and recent findings on nuclear medicine bone scan. 4. Left upper lobe [address] follow-up in 3-6 months is recommended. 5. Multilevel degenerative disc disease and other incidental findings as detailed above.
[2022-06-16 22:13] LABS: Basophils % (A) 0 %; Eosinophils % (A) 0 %; HCT 29.1 % (34.0-46.0); HGB 9.6 gm/dL (11.4-16.0); Lymphocytes # (A) 0.4 k/uL (1.0-4.8); Lymphocytes % (A) 6 %; MCH 34.6 pg (25.0-35.0); MCHC 32.9 g/dL (31.0-37.0); MCV 105.4 fL (80.0-100.0); Macrocytosis Moderate; Mean Platelet Volume 8.1; Monocytes # (A) 0.5 k/uL (0-1.0); Monocytes % (A) 7 %; Neutrophils # (A) 5.6 k/uL (1.3-7.7); Neutrophils % (A) 84 %; Platelet Count 224 k/uL (150-450); RBC 2.76 m/uL (3.80-5.40); RDW 14.5 % (11.5-15.5); WBC 6.7 k/uL (3.8-10.6)
--- NOTE | 2022-06-16 22:19 | XR ---
EXAMINATION TYPE: XR chest 2V DATE OF EXAM: 06/16/2022 10:05 PM COMPARISON: Chest x-ray 09/15/2014, CT head and cervical spine 06/16/2022, CT chest 11/13/2021 TECHNIQUE: XR chest 2V . CLINICAL INDICATION:Female, 82 years old with history of Weakness; FINDINGS: Lungs/Pleura: Multifocal nodular airspace consolidations are noted within the right lower lobe. Patch y airspace consolidation is noted within the lateral left lower lobe. Bibasilar subsegmental atelecta sis. Right apical scarring. Increase apical lucency bilaterally consistent with emphysematous changes . Pulmonary vascularity: Unremarkable. Heart/mediastinum: Cardiomediastinal silhouette is unremarkable. Atherosclerotic calcifications are seen in the aorta. Musculoskeletal: Diffuse osteopenia. Dextro scoliotic curvature of the thoracic spine Degenerative ch anges of the left shoulder joint. IMPRESSION: 1. Left airspace consolidation concerning for acute inflammatory versus infectious process. 2. Multifocal nodular right lower lobe opacities, these may represent pulmonary nodules versus additi onal airspace consolidations. 3. Findings pertaining to the upper thoracic vertebra are better characterized on CT head/cervical sp ine from same day.
[2022-06-16 22:55] LABS: Appearance,Urine Clear (Clear); Bilirubin,Urine Negative (Negative); Blood,Urine Negative (Negative); Color,Urine Yellow; Glucose,Urine (UA) Negative (Negative); Ketones,Urine Negative (Negative); Leukocyte Esterase,Urine Negative (Negative); Nitrite,Urine Negative (Negative); Protein,Urine Trace (Negative); Urobilinogen,Urine <2.0 mg/dL (<2.0)
--- NOTE | 2022-06-16 23:17 | XR ---
EXAMINATION TYPE: XR pelvis AP view DATE OF EXAM: 06/16/2022 11:11 PM INDICATION: Patient age:Female; 82 years old; Reason for study: Right hip pain; PHH. COMPARISON: CT chest abdomen pelvis 11/13/2021 TECHNIQUE: The pelvis was examined in single AP projection. FINDINGS: Diffuse osteopenia. No evidence for fracture or dislocation. Left total hip arthroplasty, h ardware appears intact. Degenerative changes of the lumbar spine as visualized. Degenerative changes of the right hip joint. Dextroscoliosis. Diffuse vascular calcifications and pelvic phleboliths noted . IMPRESSION: 1. No acute osseous pathology. 2. Degenerative changes of the lumbar spine and right hip joint. 3. Left total hip arthroplasty.
[2022-06-17] MEDS ORDERED: NALOXONE 0.4 MG/ML 1 ML VIAL IV PRN (00:03)
[2022-06-17] MEDS ORDERED: Potassium Replacement Protocol 1 EACH MISC MISCELLANE PRN (02:18)
[2022-06-17] MEDS ORDERED: IBUPROFEN 600 MG TAB PO PRN (02:57)
[2022-06-17] MEDS: IBUPROFEN 400 MG TAB PO PRN ×3 (04:01→23:33)
[2022-06-17] MEDS ORDERED: RIBOCICLIB SUCCINATE PO SCH ×2 (09:00→13:00)
[2022-06-17 10:32] LABS: African American GFR (CKD) 105.5 (60.0-200.0); Anion Gap 9.2 mmol/L (10.00-18.00); BUN/Creat Ratio 31.03 Ratio (12.00-20.00); Blood Urea Nitrogen 15.7 mg/dL (9.0-27.0); Calcium 7.7 mg/dL (8.7-10.3); Carbon Dioxide 22.9 mmol/L (20.0-27.5); Non-African American GFR(CKD) 91.1 (60.0-200.0)
[2022-06-17] MEDS: POTASSIUM CHLORIDE ER 20 MEQ TAB.ER PO SCH ×2 (16:37→18:11)
--- NOTE | 2022-06-17 18:06 | P.CONS ---
History of Present Illness - Reason for Consult Consult date: 06/17/22 hx breast cancer Requesting physician: Mahendra Paz - Chief Complaint weakness, falls - History of Present Illness Patient is an 82-year-old female with a significant history of breast cancer. She is a patient of Dr. newton. She has a history of breast cancer with her or iginal diagnosis in 1993 involving the left breast. She had a modified radical mastectomy. In 2004 she was found to have a mass in the in the right lung and had a right upper lobectomy. The pathology turned out to be consistent with a breast primary. 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 In january of 2014 she was switched to Aromasin due to elevation in tumor markers. Her tumor markers did stabilize subsequently. Scans in 05/16 had shown possible new nodules in the LLL. Tumor markers were also elevated. However follow up scans in 08/16 showed improvement, but tumor markers showed further progression. CT CAP in 11/16 were stable, but bone scan showed probable progression in the upper Lumbar , lower T-spine, left chest wall, rt femur. The patient was therefore switched to Kisquali and Faslodex in November 2021 and is s/p completion of cycle 7 Faslodex on 06/06/22. Due to progressive weakness, loss of appetite and decreased activity, lightheadedness, as well as increased lower extremity swelling, she was started on dose reduction of Kisquali. CA 15-3 253, CA 27.29 378 on 05/29/22. Patient presented to the ER for progressing generalized weakness and frequent falls. HPI is limited due to patient being a poor historian. Initially stated that she is having falls due to dizziness and weakness then stated she was not having dizziness and weakness but pain in bilateral knee pain are causing the falls. Patient denies any head injury and LOC. She does report mild headache. Denies dizziness, chest pain, shortness of breath, cough at this time. She states that she has been tolerating oral intake. Denies nausea vomiting diarrhea or abdominal pain, fever and chills. CT head and neck revealed no acute intracranial process. Nonspecific white matter changes likely secondary to chronic small vessel ischemic disease. Aggressive osteoblastic and osteolytic changes involving the spinous processes and posterior elements of the upper thoracic vertebrae and left ribs, findings are consistent with osseous metastasis given history of breast cancer and recent findings nuclear medicine bone scan. Left upper lobe 6 mm pulmonary nodule. Multilevel degenerative disc disease. chest x-ray revealed left airspace consolidation concerning for acute inflammatory versus infectious process. Multifocal nodule right lower lobe opacities, these may represent pulmonary nodules versus additional air space consolidations. Pelvis x-ray is negative for acute fracture. hemoglobin 9.6, WBC 6.7, platelets 224,000. Urinalysis negative for acute UTI. Patient is afebrile. Review of Systems 10 point ROS is negative except as stated in the HPI Past Medical History Past Medical History: Cancer, Osteoarthritis (OA), Thyroid Disorder Additional Past Medical History / Comment(s): L BREAST,LUNG AND ENDOMETRIAL CA. Osteoporosis and hypothyroidism. 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 History of Any Multi-Drug Resistant Organisms: C-DIFF Year Discovered:: 2002 MDRO Source:: STOOL Past Surgical History: Adenoidectomy, Breast Surgery, Hernia Repair, Hysterectomy, Joint Replacement, Tonsillectomy Additional Past Surgical History / Comment(s): LEFT KNEE REPLACED. left MASTECTOMY. RIGHT LOWER LOBECTOMY. LEFT HIP REPLACED. CHERIE BSO in 1996. Past Anesthesia/Blood Transfusion Reactions: No Reported Reaction, Motion Si ckness Past Psychological History: No Psychological Hx Reported Smoking Status: Never smoker Past Alcohol Use History: None Reported Past Drug Use History: None Reported - Past Family History Father History Unknown: Yes Family Medical History: Unable to Obtain Daughter(s) Additional Family Medical History / Comment(s): Daughter has Crohn's disease. Mother Family Medical History: Coronary Artery Disease (CAD) Additional Family Medical History / Comment(s): CARDIAC VALVE PROBLEMS Brother(s) Family Medical History: Mitral Valve Prolapse (MVP) Additional Family Medical History / Comment(s): VALVE REPLACED. Medications and Allergies Home Medications Medication Instructions Recorded Confirmed Type Ibuprofen [Motrin] 300 mg PO TID 05/28/17 06/16/22 History Ribociclib Succinate [Kisqali] 600 mg PO DAILY 06/16/22 06/16/22 History Allergies Allergy/AdvReac Type Severity Reaction Status Date / Time celecoxib [From Celebrex] Allergy Rash/Hives Verified 06/16/22 22:17 Sulfa (Sulfonamide Allergy Rapid Verified 06/16/22 22:17 Antibiotics) Heart Rate Penicillins AdvReac Verified 06/16/22 22:17 Physical Exam Vitals: Vital Signs Temp Pulse Pulse Resp BP BP Pulse Ox 06/17/22 14:00 98.8 F 90 19 132/70 98 06/17/22 07:40 98.0 F 72 18 125/66 96 06/17/22 02:00 98.3 F 78 16 132/74 98 06/17/22 01:22 83 16 134/67 98 06/16/22 23:12 83 16 134/63 97 06/16/22 21:02 98.4 F 76 16 135/66 96 Intake and Output 06/17/22 06/17/22 06/17/22 06:59 14:59 22:59 Intake Total 50 Output Total 675 300 Balance -625 -300 Intake: Oral 50 Output: Urine 675 300 Straight 675 Other: Weight 58.967 kg - Constitutional General appearance: average body habitus, no acute distress - EENT Eyes: anicteric sclerae, EOMI ENT: hearing grossly normal - Respiratory Respiratory: bilateral: CTA - Cardiovascular Rhythm: regular Heart sounds: normal: S1, S2 Abnormal Heart Sounds: no systolic murmur, no diastolic murmur, no rub, no S3 Gallop, no S4 Gallop, no click, no other leg Peripheral Edema: right: 1+, left: Trace, Pitting - Gastrointestinal General gastrointestinal: no distended, soft, no tenderness - Integumentary Integumentary: normal - Neurologic no focal deficits noted - Musculoskeletal Musculoskeletal: generalized weakness Results CBC & Chem 7: 06/16/22 21:31 06/17/22 05:29 Labs: Abnormal Lab Results - Last 24 Hours (Table) 06/16/22 06/16/22 06/16/22 Range/Units 21:31 21:31 22:49 RBC 2.76 L (3.80-5.40) m/uL Hgb 9.6 L (11.4-16.0) gm/dL Hct 29.1 L (34.0-46.0) % MCV 105.4 H (80.0-100.0) fL Lymphocytes # 0.4 L (1.0-4.8) k/uL Potassium 3.2 L (3.5-5.1) mmol/L Chloride 108 H (98-107) mmol/L Anion Gap (10.00-18.00) mmol/L BUN 19 H (7-17) mg/dL Creatinine (0.6-1.5) mg/dL BUN/Creatinine Ratio (12.00-20.00) Ratio Glucose 108 H (74-99) mg/dL Calcium 7.7 L (8.4-10.2) mg/dL Total Protein 5.9 L (6.3-8.2) g/dL Albumin 3.0 L (3.5-5.0) g/dL Urine Protein Trace H (Negative) 06/17/22 Range/Units 05:29 RBC (3.80-5.40) m/uL Hgb (11.4-16.0) gm/dL Hct (34.0-46.0) % MCV (80.0-100.0) fL Lymphocytes # (1.0-4.8) k/uL Potassium 3.0 L (3.5-5.1) mmol/L Chloride 110 H (98-107) mmol/L Anion Gap 9.20 L (10.00-18.00) mmol/L BUN (7-17) mg/dL Creatinine 0.5 L (0.6-1.5) mg/dL BUN/Creatinine Ratio 31.03 H (12.00-20.00) Ratio Glucose (74-99) mg/dL Calcium 7.7 L (8.4-10.2) mg/dL Total Protein (6.3-8.2) g/dL Albumin (3.5-5.0) g/dL Urine Protein (Negative) Comments: pelvis x-ray reviewed Chest x-ray: report reviewed CT Scan - head: report reviewed Assessment and Plan (1) Carcinoma of breast metastatic to bone Current Visit: Yes Status: Acute Code(s): C50.919 - MALIGNANT NEOPLASM OF UNSP SITE OF UNSPECIFIED FEMALE BREAST; C79.51 - SECONDARY MALIGNANT NEOPLASM OF BONE SNOMED Code(s): 40036871 (2) Weakness Current Visit: Yes Status: Acute Code(s): R53.1 - WEAKNESS SNOMED Code(s): 72709571 Plan: Breast cancer: -Remote hx of left breast cancer in 1993 with modified radical mastectomy. Recurrence in 2004, was found to have a mass in the in the right lung and had a right upper lobectomy. Has been on multiple treatment regimens due to recurrence and progression of disease. CT CAP in 11/16 were stable, but bone scan showed probable progression in the upper Lumbar , lower T-spine, left chest wall, rt femur. Switched to Kisqali and Faslodex. S/p completion of cycle 7 Faslodex on 06/06/22. She denies missing any doses of Kisqali -Will hold kisqali at this time, may be contributing to patients dizziness and weakness. -CT head/neck revealed aggressive osteoblastic and osteolytic changes involving the spinous processes and posterior elements of the upper thoracic vertebrae and left ribs, findings are consistent with osseous metastasis given history of br east cancer and recent findings nuclear medicine bone scan. Left upper lobe 6 mm pulmonary nodule. Possible progression?, will schedule clinic f/u with Dr. Lucio to further evaluate, consider repeat bone scan/PET at that time -CA 15-3 253, CA 27.29 378 on 05/29/22. Will repeat tumor markers -Hemoglobin 9.6, WBC 6.7, platelets 224,000. Will continue to monitor Weakness/frequent falls -CT head and neck revealed no acute intracranial process. Nonspecific white matter changes likely secondary to chronic small vessel ischemic disease. Aggressive osteoblastic and osteolytic changes involving the spinous processes and posterior elements of the upper thoracic vertebrae and left ribs, findings are consistent with osseous metastatic is given history of breast cancer and recent findings nuclear medicine bone scan. Left upper lobe 6 mm pulmonary nodule. Multilevel degenerative disc disease. chest x-ray revealed left airspace consolidation concerning for acute inflammatory versus infectious pr ocess. Multifocal nodule right lower lobe opacities, these may represent pulmonary nodules versus additional air space consolidations. Pelvis x-ray is negative for acute fracture. -Urinalysis negative for acute UTI. -Encourage oral intake/liberal fluids -Will hold kisqali, as stated above
[2022-06-18] MEDS ORDERED: POTASSIUM CHLORIDE 20 MEQ in WATER FOR INJECTION 1 100ML.BAG IVPB STA (00:27)
--- NOTE | 2022-06-18 00:32 | P.HPIM ---
History of Present Illness H&P Date: 06/17/22 Chief Complaint: Generalized weakness Patient is a 82-year-old female with a known history of left breast cancer currently on chemotherapy, endometrial cancer status post total abdominal hysterectomy and bilateral salpingo-oophorectomy in 1996 and postoperative adjuvant radiation treatment, hypothyroidism and osteoarthritis presents to ER due to complaints of not feeling well and increased weakness and multiple falls. Patient is somewhat poor historian. She states that she is not able to take care of herself at home. Usually her son helps her get out of the chair and she stays mostly in the chair. Patient's son called EMS since he is not able to get her out of the chair and patient is having increasing weakness. Otherwise patient denies any complaints of pain. No chest pain or shortness of breath. Patient has been afebrile. No nausea vomiting or diarrhea. CT head and cervical spine showed no acute intracranial process. Nonspecific white matter changes, likely secondary to chronic small vessel ischemic disease. Aggressive osteoblastic and osteolytic changes involving the spinous process and posterior elements of the upper thoracic vertebra left ribs findings are consistent with osseous metastasis given history of breast cancer and recent findings on nuclear medicine bone scan. Left upper lobe 6 mm pulmonary nodule Multilevel degenerative disc disease and other incidental findings. Chest x-ray showed left airspace consolidation concerning for acute inflammatory versus infectious process. Multifocal nodular right upper lobe opacities may re present pulm nodules versus age-related vacillations. X-ray with pelvis showed no acute osseous pathology. Degenerative changes of the lumbar spine and right hip pain. Left total hip arthroplasty. EKG showed sinus rhythm Laboratory data showed WBC 6.7 hemoglobin 9.6 MCV 105.4 and platelets 224 Sodium 139 potassium 3.2, chloride 108 bicarb is 22 BUN 19 and creatinine 0.56 and calcium 7.7 magnesium 1.9 troponin x1 negative albumin 3.0 Urinalysis is negative for infection. Review of Systems Constitutional: Patient denies any fever or chills . Generalized weakness. Abdomen: Patient denied any nausea or vomiting or abd. pain Cardiovascular: Patient denies any chest pain or short of breath no palpitations. Respiratory: patient denied any cough . no sputum production. No shortness of breath Neurologic: Patient denied any numbness or tingling headache. Musculoskeletal: Patient denies any complaints of joint swelling or deformity. Complete review of systems could not be obtained from the patient. Past Medical History Past Medical History: Cancer, Osteoarthritis (OA), Thyroid Disorder Additional Past Medical History / Comment(s): L BREAST,LUNG AND ENDOMETRIAL CA. Osteoporosis and hypothyroidism. 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 History of Any Multi-Drug Resistant Organisms: C-DIFF Date of last positivie culture/infection: 2002 MDRO Source:: STOOL Past Surgical History: Adenoidectomy, Breast Surgery, Hernia Repair, Hysterectomy, Joint Replacement, Tonsillectomy Additional Past Surgical History / Comment(s): LEFT KNEE REPLACED. left MASTECTOMY. RIGHT LOWER LOBECTOMY. LEFT HIP REPLACED. CHERIE BSO in 1996. Past Anesthesia/Blood Transfusion Reactions: No Reported Reaction, Motion Sickness Past Psychological History: No Psychological Hx Reported Smoking Status: Never smoker Past Alcohol Use History: None Reported Past Drug Use History: None Reported - Past Family History Father History Unknown: Yes Family Medical History: Unable to Obtain Daughter(s) Additional Family Medical History / Comment(s): Daughter has Crohn's disease. Mother Family Medical History: Coronary Artery Disease (CAD) Additional Family Medical History / Comment(s): CARDIAC VALVE PROBLEMS Brother(s) Family Medical History: Mitral Valve Prolapse (MVP) Additional Family Medical History / Comment(s): VALVE REPLACED. Medications and Allergies Home Medications Medication Instructions Recorded Confirmed Type Ibuprofen [Motrin] 300 mg PO TID 05/28/17 06/16/22 History Ribociclib Succinate [Kisqali] 600 mg PO DAILY 06/16/22 06/16/22 History Allergies Allergy/AdvReac Type Severity Reaction Status Date / Time celecoxib [From Celebrex] Allergy Rash/Hives Verified 06/16/22 22:17 Sulfa (Sulfonamide Allergy Rapid Verified 06/16/22 22:17 Antibiotics) Heart Rate Penicillins AdvReac Verified 06/16/22 22:17 Physical Exam Vitals: Vital Signs Temp Pulse Pulse Resp BP BP Pulse Ox 06/17/22 07:40 98.0 F 72 18 125/66 96 06/17/22 02:00 98.3 F 78 16 132/74 98 06/17/22 01:22 83 16 134/67 98 06/16/22 23:12 83 16 134/63 97 06/16/22 21:02 98.4 F 76 16 135/66 96 Intake and Output 06/16/22 06/17/22 06/17/22 22:59 06:59 14:59 Intake Total 50 Output Total 675 Balance -625 Intake: Oral 50 Output: Urine 675 Straight 675 Other: Weight 58.967 kg 58.967 kg PHYSICAL EXAMINATION: Patient is lying in the bed comfortably, no acute distress, awake alert and oriented.. HEENT: Normocephalic. Neck is supple. Pupils reactive. Nostrils clear. Oral cavity is moist. Neck reveals no JVD, carotid bruits, or thyromegaly. CHEST EXAMINATION: Trachea is central. Symmetrical expansion. Lung fonseca clear to auscultation and percussion. CARDIAC: Normal S1, S2 with no gallops. No murmurs ABDOMEN: Soft. Bowel sounds present. Nontender. No organomegaly. No abdominal bruits. Extremities: reveal no edema. No clubbing or cyanosis Neurologically awake, alert, oriented x 2-3. No gross focal deficits noted Skin: No rash or skin lesions. Coccygeal region pressure ulcer Psychiatric: Coperative. Nonsuicidal, Musculoskeletal: No joint swelling or deformity. Results CBC & Chem 7: 06/18/22 05:13 06/18/22 05:13 Labs: Abnormal Lab Results - Last 24 Hours (Table) 06/16/22 06/16/22 06/16/22 Range/Units 21:31 21:31 22:49 RBC 2.76 L (3.80-5.40) m/uL Hgb 9.6 L (11.4-16.0) gm/dL Hct 29.1 L (34.0-46.0) % MCV 105.4 H (80.0-100.0) fL Lymphocytes # 0.4 L (1.0-4.8) k/uL Potassium 3.2 L (3.5-5.1) mmol/L Chloride 108 H (98-107) mmol/L Anion Gap (10.00-18.00) mmol/L BUN 19 H (7-17) mg/dL Creatinine (0.6-1.5) mg/dL BUN/Creatinine Ratio (12.00-20.00) Ratio Glucose 108 H (74-99) mg/dL Calcium 7.7 L (8.4-10.2) mg/dL Total Protein 5.9 L (6.3-8.2) g/dL Albumin 3.0 L (3.5-5.0) g/dL Urine Protein Trace H (Negative) 06/17/22 Range/Units 05:29 RBC (3.80-5.40) m/uL Hgb (11.4-16.0) gm/dL Hct (34.0-46.0) % MCV (80.0-100.0) fL Lymphocytes # (1.0-4.8) k/uL Potassium 3.0 L (3.5-5.1) mmol/L Chloride 110 H (98-107) mmol/L Anion Gap 9.20 L (10.00-18.00) mmol/L BUN (7-17) mg/dL Creatinine 0.5 L (0.6-1.5) mg/dL BUN/Creatinine Ratio 31.03 H (12.00-20.00) Ratio Glucose (74-99) mg/dL Calcium 7.7 L (8.4-10.2) mg/dL Total Protein (6.3-8.2) g/dL Albumin (3.5-5.0) g/dL Urine Protein (Negative) Thrombosis Risk Factor Assmnt - DVT/VTE Prophylaxis DVT/VTE Prophylaxis: Pharmacologic Prophylaxis ordered - Choose All That Apply Any of the Below Risk Factors Present?: No Other Risk Factors: Yes Each Risk Factor Represents 3 Points: Age 75 years or older Other congenital or acquired thrombophilia - If yes, enter type in comment: No Thrombosis Risk Factor Assessment Total Risk Factor Score: 3 Thrombosis Risk Factor Assessment Level: Moderate Risk Assessment and Plan Assessment: Generalized weakness and failure to thrive Hypokalemia Dehydration volume depletion Microcytic anemia Metastatic breast cancer with osteoblastic and osteolytic changes involving the spinous process and posterior upper thoracic vertebra and left ribs. Left upper lobe 6 mm pulmonary nodule Multilevel degenerative disc disease Hypothyroidism currently not taking any medications Sacral decub ulcers DVT prophylaxis with heparin subcu Plan: Patient will be continued on pain management and continue with wound care for sacral ulcers. Wound care consult and ID consult for evaluation. Continue to replace potassium and follow-up TSH and B12 levels. Urinalysis is negative for infection. Patient was seen by oncology. Currently chemotherapy is on hold. Repeat tumor markers were ordered. Current with symptomatic management and follow-up closely. Prognosis guarded at this time. PT OT will be consulted. Time with Patient: Greater than 30
[2022-06-18] MEDS: SODIUM CHLORIDE 0.9% 1,000 ML IV SCH ×2 (00:54→21:59)
[2022-06-18] MEDS: IBUPROFEN 400 MG TAB PO PRN ×3 (06:46→20:24)
[2022-06-18] MEDS: HEPARIN SODIUM,PORCINE/PF 5,000 UNIT/0.5 ML SYRINGE SQ SCH ×2 (08:58→21:59)
[2022-06-18 09:02] LABS: Basophils # (A) 0.06 X 10*3/uL (0.00-0.10); Basophils % (A) 0.9 %; Eosinophils # (A) 0.08 X 10*3/uL (0.04-0.35); Eosinophils % (A) 1.1 %; HCT 27.9 % (37.2-46.3); HGB 8.9 g/dL (12.0-15.0); Immature Grans, Automated 0.9 %; Lymphocytes # (A) 0.58 X 10*3/uL (0.90-5.00); Lymphocytes % (A) 8.3 %; MCH 33.5 pg (27.0-32.0); MCHC 31.9 g/dL (32.0-37.0); MCV 104.9 fL (80.0-97.0); Mean Platelet Volume 9.8 fL (9.5-12.2); Monocytes # (A) 0.82 X 10*3/uL (0.20-1.00); Monocytes % (A) 11.7 %; NRBC Per 100 WBC 0 /100 WBCS (0.0-0.0); Neutrophils # (A) 5.39 X 10*3/uL (1.80-7.70); Neutrophils % (A) 77.1 %; Platelet Count 216 X 10*3/uL (140-440); RBC 2.66 X 10*6/uL (4.10-5.20); WBC 6.99 X 10*3/uL (4.50-10.00)
[2022-06-18 09:31] LABS: African American GFR (CKD) 99.8 (60.0-200.0); Blood Urea Nitrogen 16.8 mg/dL (9.0-27.0); Calcium 7.7 mg/dL (8.7-10.3); Carbon Dioxide 25.4 mmol/L (20.0-27.5); Chloride 110 mmol/L (96-109); Glucose 81 mg/dL (70-110); Non-African American GFR(CKD) 86.1 (60.0-200.0); Sodium 145 mmol/L (135-145)
[2022-06-18 09:34] LABS: Vitamin B12 >1800.0 pg/mL (200.0-944.0)
[2022-06-18 13:31] VITALS: BMI 20.9
--- NOTE | 2022-06-18 14:28 | P.GSCN ---
History of Present Illness Consult date: 06/18/22 History of present illness: CHIEF COMPLAINT: Weakness Reason for consult debridement of sacral ulcer HISTORY OF PRESENT ILLNESS: This is a 82-year-old female presented to the hospital with weakness and falls. Patient has been so weak she was unable to get out of her chair and EMS had to be called. Patient has a known history of breast cancer currently undergoing chemotherapy. Patient is unable to take care of herself at home. She has a sacral decubitus ulcer that has been present for the last few months. She does report pain. There is a foul odor. She denies any history of diabetes. They did do a computed tomography scan of the head and cervical spine that showed aggressive osteoblastic and osteolytic changes involving the spinous process and posterior elements of the upper thoracic vertebral and left ribs findings consistent with osseous metastasis given history of breast cancer. She is followed by oncology service. Surgical service requested for debridement of sacral ulcer. PAST MEDICAL HISTORY: See below PAST SURGICAL HISTORY: See below MEDICATIONS: See below ALLERGIES: See below SOCIAL HISTORY: No illicit drug use. REVIEW OF SYSTEMS: CONSTITUTIONAL: Denies fever or chills. HEENT: Denies blurred vision, vision changes, or eye pain. Denies hemoptysis CARDIOVASCULAR: Denies chest pain or pressure. RESPIRATORY: No shortness of breath. GASTROINTESTINAL: See HPI for pertinent findings HEMATOLOGIC: Denies bleeding disorders. GENITOURINARY: Denies any blood in urine or increased urinary frequency. SKIN: Denies pruitis. Denies rash. PHYSICAL EXAM: VITAL SIGNS: Reviewed GENERAL: Well-developed in no acute distress. HEENT: No sclera icterus. Extraocular movements grossly intact. Moist buccal mucosa. Head is atraumatic, normocephalic. No nasal drainage. ABDOMEN: Soft. Nondistended. Nontender NEUROLOGIC: Alert and oriented. Cranial nerves II through XII grossly intact. Skin: Sacral decubitus ulcer with evidence of scar tissue. Follow odor. Please refer to picture in chart for exact measurements LABORATORY DATA: WBC is 6.99 Hgb 8.9 platelets 216 Sodium 145 potassium 4.0 creatinine 0.6 CA-15-3 elevated at 188 IMAGING: Pelvic x-ray no osseous pathology. Degenerative changes of lumbar spine and right hip. Left total hip arthroplasty computed tomography scan of the head and cervical spine that showed aggressive osteoblastic and osteolytic changes involving the spinous process and posterior elements of the upper thoracic vertebral and left ribs findings consistent with osseous metastasis given history of breast cancer. ASSESSMENT: 1. Sacral decubitus ulcer 2. History of breast cancer with osseous metastasis noted on computed tomography scan PLAN: -Patient scheduled for debridement of sacral decubitus ulcer tomorrow with Dr. norwood -Keep patient nothing by mouth -Continue local wound care -Antibiotics per ID service Thank you for this consultation Physician Mri Ct Tech note has been reviewed by physician. Signing provider agrees with the documented findings, assessment, and plan of care. Past Medical History Past Medical History: Cancer, Osteoarthritis (OA), Thyroid Disorder Additional Past Medical History / Comment(s): L BREAST,LUNG AND ENDOMETRIAL CA. Osteoporosis and hypothyroidism. 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 History of Any Multi-Drug Resistant Organisms: C-DIFF Year Discovered:: 2002 MDRO Source:: STOOL Past Surgical History: Adenoidectomy, Breast Surgery, Hernia Repair, Hysterectomy, Joint Replacement, Tonsillectomy Additional Past Surgical History / Comment(s): LEFT KNEE REPLACED. left MASTECTOMY. RIGHT LOWER LOBECTOMY. LEFT HIP REPLACED. CHERIE BSO in 1996. Past Anesthesia/Blood Transfusion Reactions: No Reported Reaction, Motion Sickness Past Psychological History: No Psychological Hx Reported Smoking Status: Never smoker Past Alcohol Use History: None Reported Past Drug Use History: None Reported - Past Family History Father History Unknown: Yes Family Medical History: Unable to Obtain Daughter(s) Additional Family Medical History / Comment(s): Daughter has Crohn's disease. Mother Family Medical History: Coronary Artery Disease (CAD) Additional Family Medical History / Comment(s): CARDIAC VALVE PROBLEMS Brother(s) Family Medical History: Mitral Valve Prolapse (MVP) Additional Family Medical History / Comment(s): VALVE REPLACED. Medications and Allergies Home Medications Medication Instructions Recorded Confirmed Type Ibuprofen [Motrin] 300 mg PO TID 05/28/17 06/16/22 History Ribociclib Succinate [Kisqali] 600 mg PO DAILY 06/16/22 06/16/22 History Allergies Allergy/AdvReac Type Severity Reaction Status Date / Time celecoxib [From Celebrex] Allergy Rash/Hives Verified 06/16/22 22:17 Sulfa (Sulfonamide Allergy Rapid Verified 06/16/22 22:17 Antibiotics) Heart Rate Penicillins AdvReac Verified 06/16/22 22:17 Surgical - Exam Vital Signs Temp Pulse Resp BP Pulse Ox 98.4 F 76 16 135/66 96 06/16/22 21:02 06/16/22 21:02 06/16/22 21:02 06/16/22 21:02 06/16/22 21:02 Results - Labs 06/18/22 05:13 06/18/22 05:13 Abnormal Lab Results - Last 24 Hours (Table) 06/17/22 06/18/22 06/18/22 Range/Units 18:49 05:13 05:13 RBC 2.66 L (4.10-5.20) X 10*6/uL Hgb 8.9 L (12.0-15.0) g/dL Hct 27.9 L (37.2-46.3) % MCV 104.9 H (80.0-97.0) fL MCH 33.5 H (27.0-32.0) pg MCHC 31.9 L (32.0-37.0) g/dL RDW 15.0 H (11.5-14.5) % Immature Gran # 0.06 H (0.00-0.04) X 10*3/uL Lymphocytes # 0.58 L (0.90-5.00) X 10*3/uL Chloride 110 H (96-109) mmol/L Anion Gap 9.60 L (10.00-18.00) mmol/L BUN/Creatinine Ratio 28.00 H (12.00-20.00) Ratio Calcium 7.7 L (8.7-10.3) mg/dL CA 15-3 Antigen 188.0 H (0.0-32.3) U/mL Vitamin B12 >1800.0 H (200.0-944.0) pg/mL Diabetes panel 06/18/22 Range/Units 05:13 Sodium 145 (135-145) mmol/L Potassium 4.0 (3.5-5.5) mmol/L Chloride 110 H (96-109) mmol/L Carbon Dioxide 25.4 (20.0-27.5) mmol/L BUN 16.8 (9.0-27.0) mg/dL Creatinine 0.6 (0.6-1.5) mg/dL Glucose 81 (70-110) mg/dL Calcium 7.7 L (8.7-10.3) mg/dL Thyroid panel 06/18/22 Range/Units 05:13 TSH 2.400 (0.350-5.500) uIU/mL Calcium panel 06/18/22 Range/Units 05:13 Calcium 7.7 L (8.7-10.3) mg/dL Pituitary panel 06/18/22 Range/Units 05:13 Sodium 145 (135-145) mmol/L Potassium 4.0 (3.5-5.5) mmol/L Chloride 110 H (96-109) mmol/L Carbon Dioxide 25.4 (20.0-27.5) mmol/L BUN 16.8 (9.0-27.0) mg/dL Creatinine 0.6 (0.6-1.5) mg/dL Glucose 81 (70-110) mg/dL Calcium 7.7 L (8.7-10.3) mg/dL TSH 2.400 (0.350-5.500) uIU/mL Adrenal panel 06/18/22 Range/Units 05:13 Sodium 145 (135-145) mmol/L Potassium 4.0 (3.5-5.5) mmol/L Chloride 110 H (96-109) mmol/L Carbon Dioxide 25.4 (20.0-27.5) mmol/L BUN 16.8 (9.0-27.0) mg/dL Creatinine 0.6 (0.6-1.5) mg/dL Glucose 81 (70-110) mg/dL Calcium 7.7 L (8.7-10.3) mg/dL
--- NOTE | 2022-06-18 20:03 | P.PN ---
Subjective Progress Note Date: 06/18/22 Principal diagnosis: Failure to thrive In f/u today pt was due to resume kisqali so, she was given a dose. Her weakness on admit has not improved much. She reports eating a little bit. She has a significant decubitus ulcer requiring debridement and antibiotics. Objective - Vital Signs Vital signs: Vital Signs Temp 98.7 F 06/18/22 14:40 Pulse 90 06/18/22 14:40 Resp 17 06/18/22 14:40 BP 127/72 06/18/22 14:40 Pulse Ox 90 L 06/18/22 14:40 FiO2 Intake & Output 06/17/22 06/18/22 06/18/22 18:59 06:59 18:59 Output Total 300 550 Balance -300 -550 Weight 58.967 kg Output: Urine 300 550 Other: Voiding Method Indwelling Catheter Indwelling Catheter - Constitutional General appearance: Present: average body habitus, cooperative, no acute distress - EENT Eyes: Present: anicteric sclerae, EOMI ENT: Present: hearing grossly normal - Respiratory Details: resp even and unlabored - Integumentary Integumentary: Present: pale - Neurologic Neurologic: Present: CNII-XII intact - Musculoskeletal Musculoskeletal: Present: generalized weakness - Psychiatric Psychiatric: Present: A&O x's 3, appropriate affect, intact judgment & insight - Labs CBC & Chem 7: 06/18/22 05:13 06/18/22 05:13 Labs: Abnormal Lab Results - Last 24 Hours (Table) 06/17/22 06/18/22 06/18/22 Range/Units 18:49 05:13 05:13 RBC 2.66 L (4.10-5.20) X 10*6/uL Hgb 8.9 L (12.0-15.0) g/dL Hct 27.9 L (37.2-46.3) % MCV 104.9 H (80.0-97.0) fL MCH 33.5 H (27.0-32.0) pg MCHC 31.9 L (32.0-37.0) g/dL RDW 15.0 H (11.5-14.5) % Immature Gran # 0.06 H (0.00-0.04) X 10*3/uL Lymphocytes # 0.58 L (0.90-5.00) X 10*3/uL Chloride 110 H (96-109) mmol/L Anion Gap 9.60 L (10.00-18.00) mmol/L BUN/Creatinine Ratio 28.00 H (12.00-20.00) Ratio Calcium 7.7 L (8.7-10.3) mg/dL CA 15-3 Antigen 188.0 H (0.0-32.3) U/mL Vitamin B12 >1800.0 H (200.0-944.0) pg/mL Assessment and Plan (1) Carcinoma of breast metastatic to bone Current Visit: Yes Status: Acute Priority: High Code(s): C50.919 - MALIGNANT NEOPLASM OF UNSP SITE OF UNSPECIFIED FEMALE BREAST; C79.51 - SECONDARY MALIGNANT NEOPLASM OF BONE SNOMED Code(s): 15567402 (2) Failure to thrive Current Visit: Yes Status: Acute Priority: High Code(s): ODY3127 - SNOMED Code(s): 03964896 Plan: Breast cancer: -Long Hx of the same, summarized in consult. Progression of disease in bones, started on Kisqali and Faslodex. S/P cycle 7 faslodex on 06/06/22, she was on her week off of kisqali, due to resume today. She did receive the dose. -Order to hold kisqali placed. -F/U with Dr. Lucio prior to resuming treatment -CA 15-3 253 on 05/29, current level 188 U/ml but, have to check measurement as I do not think they are the same. CA 27.29 378 on 05/29/22, pending results. -If pt goes to rehab-which is very likely-her faslodex and kisqali will be held until she is discharged. Pt and family are aware of this Weakness/frequent falls -CT head and neck revealed no acute intracranial process. -Urinalysis negative for acute UTI. -significant decubitus ulcer, requiring debridement and abx. Surg has seen and evaluated -Pt son reports that last time pt became this weak she was taking tramadol. He took this away from her and she recovered. He found more at her residence-she obtained a new Rx for it-so, she has been taking again. Do not think that tramadol is the only contributing factor to pt weakness and failure to thrive.
--- NOTE | 2022-06-18 20:21 | P.CONS ---
History of Present Illness - Reason for Consult Consult date: 06/18/22 Sacral pressure ulcer Requesting physician: Phuong Harper - Chief Complaint Weakness and not feeling well X weeks - History of Present Illness Patient is a 82-year-old female with a past medical history significant for left breast lung and endometrial cancer hypothyroidism osteoporosis patient presenting to the ER for evaluation not feeling well with weakness and multiple falls patient apparently also have a pressure ulcer to the sacral area which has been there for couple of weeks to months with the patient has been taking care of herself however she was unable to tell me exactly what she was doing to take care of it patient denies having any fever any chills has been complaining of pain to the sacral wound area more frequently condition of 6-7 out of 10 no radiation did have some foul-smelling drainage patient denies having any fever or any chills no headache or URI symptoms no chest pain shortness of breath or cough no abdominal pain or any diarrhea on presentation to the hospital the patient was afebrile and no fever has been called subse quently hemoglobin was low white count is normal creatinine was normal liver exams are normal urine has been negative patient did have a chest x-ray large airspace consolidation concerning for acute chlamydia versus infectious process multifocal nodular right lower lobe opacity may represent pulmonary nodules versus additional history consolidation pelvic x-ray no acute osseous pathology CT of the head and cervical spine no acute intracranial process there is osteoporotic and osteophytic changes involving the spinous process and posterior limits of the upper thoracic vertebra and ribs, infectious was consulted for further management of antibiotic therapy and the sacral wound Review of Systems Positive point and negatives has been mentioned in the HPI, complete review of systems was performed and all other systems are negative Past Medical History Past Medical History: Cancer, Osteoarthritis (OA), Thyroid Disorder Additional Past Medical History / Comment(s): L BREAST,LUNG AND ENDOMETRIAL CA. Osteoporosis and hypothyroidism. 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 History of Any Multi-Drug Resistant Organisms: C-DIFF Year Discovered:: 2002 MDRO Source:: STOOL Past Surgical History: Adenoidectomy, Breast Surgery, Hernia Repair, Hysterectomy, Joint Replacement, Tonsillectomy Additional Past Surgical History / Comment(s): LEFT KNEE REPLACED. left MASTECTOMY. RIGHT LOWER LOBECTOMY. LEFT HIP REPLACED. [facility] BSO in 1996. Past Anesthesia/Blood Transfusion Reactions: No Reported Reaction, Motion Sickness Past Psychological History: No Psychological Hx Reported Smoking Status: Never smoker Past Alcohol Use History: None Reported Past Drug Use History: None Reported - Past Family History Father History Unknown: Yes Family Medical History: Unable to Obtain Daughter(s) Additional Family Medical History / Comment(s): Daughter has Crohn's disease. Mother Family Medical History: Coronary Artery Disease (CAD) Additional Family Medical History / Comment(s): CARDIAC VALVE PROBLEMS Brother(s) Family Medical History: Mitral Valve Prolapse (MVP) Additional Family Medical History / Comment(s): VALVE REPLACED. Medications and Allergies Home Medications Medication Instructions Recorded Confirmed Type Ribociclib Succinate [Kisqali] 600 mg PO DAILY 06/16/22 06/16/22 History Artificial Tears-Hypromellose 1 drops BOTH EYES QID PRN ml 06/23/22 Rx [Artificial Tear Drops] Folic Acid 1 mg PO DAILY@1200 tab 06/23/22 Rx HYDROcodone/APAP 5-325MG [Porter 1 each PO Q12HR PRN 10 Days #5 tab 06/23/22 Rx 5-325] Melatonin 5 mg PO HS PRN tab 06/23/22 Rx Multivitamins, Thera [Multivitamin 1 each PO DAILY@1200 tab 06/23/22 Rx (formulary)] Thiamine [Vitamin B-1] 100 mg PO BID-W/MEALS tab 06/23/22 Rx cefTRIAXone [Rocephin] 2,000 mg IVP Q24HR #40 each 06/23/22 Rx metroNIDAZOLE [Flagyl] 500 mg PO TID #90 tab 06/23/22 Rx Allergies Allergy/AdvReac Type Severity Reaction Status Date / Time celecoxib [From Celebrex] Allergy Rash/Hives Verified 06/16/22 22:17 Sulfa (Sulfonamide Allergy Rapid Verified 06/16/22 22:17 Antibiotics) Heart Rate Penicillins AdvReac Verified 06/16/22 22:17 Physical Exam Vitals: Vital Signs Temp Pulse Resp BP Pulse Ox 06/18/22 07:01 97.9 F 74 16 130/69 98 06/18/22 00:31 98.3 F 76 15 103/59 96 06/17/22 19:46 98.3 F 80 15 121/64 96 06/17/22 19:20 81 06/17/22 14:00 98.8 F 90 19 132/70 98 Intake and Output 06/17/22 06/18/22 06/18/22 22:59 06:59 14:59 Output Total 350 200 Balance -350 -200 Output: Urine 350 200 Other: Voiding Method Indwelling Catheter GENERAL DESCRIPTION: Elderly female lying in bed, no distress. No tachypnea or accessory muscle of respiration use. HEENT: Shows Pallor , no scleral icterus. Oral mucous membrane is dry. NECK: Trachea central, no thyromegaly. LUNGS: Unlabored breathing. Clear to auscultation anteriorly. No wheeze or crackle. HEART: S1, S2, regular rate and rhythm. No loud murmur ABDOMEN: Soft, no tenderness , guarding or rigidity, no organomegaly EXTREMITIES: No edema of feet. SKIN: No rash, no masses palpable. Patient did have unstageable sacral pressure ulcer with foul-smelling and necrotic tissue bone was not palpable NEUROLOGICAL: The patient is awake, alert, oriented x3, mood and affect normal. Results CBC & Chem 7: 06/22/22 03:57 06/22/22 03:57 Labs: Abnormal Lab Results - Last 24 Hours (Table) 06/17/22 06/17/22 06/18/22 Range/Units 05:29 18:49 05:13 RBC 2.66 L (4.10-5.20) X 10*6/uL Hgb 8.9 L (12.0-15.0) g/dL Hct 27.9 L (37.2-46.3) % MCV 104.9 H (80.0-97.0) fL MCH 33.5 H (27.0-32.0) pg MCHC 31.9 L (32.0-37.0) g/dL RDW 15.0 H (11.5-14.5) % Immature Gran # 0.06 H (0.00-0.04) X 10*3/uL Lymphocytes # 0.58 L (0.90-5.00) X 10*3/uL Potassium 3.0 L (3.5-5.5) mmol/L Chloride 110 H (96-109) mmol/L Anion Gap 9.20 L (10.00-18.00) mmol/L Creatinine 0.5 L (0.6-1.5) mg/dL BUN/Creatinine Ratio 31.03 H (12.00-20.00) Ratio Calcium 7.7 L (8.7-10.3) mg/dL CA 15-3 Antigen 188.0 H (0.0-32.3) U/mL Assessment and Plan (1) Pressure injury of sacral region, stage 4 Status: Acute Code(s): L89.154 - PRESSURE ULCER OF SACRAL REGION, STAGE 4 SNOMED Code(s): 46690323055025 Plan: 1patient was rehospitalized with transient multifactorial in this patient who did have a unstageable sacral pressure ulcer and concern for infected wound with a foul-smelling drainage, patient benefit from surgical department for with surgical service has been consulted and deep culture should be obtained at the time of surgical debridement 2-patient also have a abnormal x-ray concerning for possible right lower lobe consolidation versus metastatic disease as the patient currently not running a fever or elevated white count pneumonia less likely but not entirely excluded 3-we will check inflammatory markers and procalcitonin 4-empirically add Rocephin 2 g daily We will follow on clinical condition and cultures to further adjust medication if needed Thank you for this consultation we will follow the patient along with you Time with Patient: Greater than 30
--- NOTE | 2022-06-19 02:08 | P.PN ---
Subjective Progress Note Date: 06/18/22 Patient is a 82-year-old female with a known history of left breast cancer currently on chemotherapy, endometrial cancer status post total abdominal hysterectomy and bilateral salpingo-oophorectomy in 1996 and postoperative adjuvant radiation treatment, hypothyroidism and osteoarthritis presents to ER due to complaints of not feeling well and increased weakness and multiple falls. Patient is somewhat poor historian. She states that she is not able to take care of herself at home. Usually her son helps her get out of the chair and she stays mostly in the chair. Patient's son called EMS since he is not able to get her out of the chair and patient is having increasing weakness. Otherwise patient denies any complaints of pain. No chest pain or shortness of breath. Patient has been afebrile. No nausea vomiting or diarrhea. CT head and cervical spine showed no acute intracranial process. Nonspecific white matter changes, likely secondary to chronic small vessel ischemic disease. Aggressive osteoblastic and osteolytic changes involving the spinous process and posterior elements of the upper thoracic vertebra left ribs findings are consistent with osseous metastasis given history of breast cancer and recent findings on nuclear medicine bone scan. Left upper lobe 6 mm pulmonary nodule Multilevel degenerative disc disease and other incidental findings. Chest x-ray showed left airspace consolidation concerning for acute inflammatory versus infectious process. Multifocal nodular right upper lobe opacities may represent pulm nodules versus age-related vacillations. X-ray with pelvis showed no acute osseous pathology. Degenerative changes of the lumbar spine and right hip pain. Left total hip arthroplasty. EKG showed sinus rhythm Laboratory data showed WBC 6.7 hemoglobin 9.6 MCV 105.4 and platelets 224 Sodium 139 potassium 3.2, chloride 108 bicarb is 22 BUN 19 and creatinine 0.56 and calcium 7.7 magnesium 1.9 troponin x1 negative albumin 3.0 Urinalysis is negative for infection. 06/18/2022 Patient is currently lying in bed. Awake alert and oriented. Family is at bedside. Still complains of generalized weakness and not improved. Patient was able to eat better today. General surgery was consulted due to decub ulcers and possible debridement and antibiotics. Wound care service is on board. Patient has been afebrile. No complaints of chest pain or shortness of breath. No nausea vomiting abdominal pain or diarrhea. Laboratory showed WBC 6.9 hemoglobin 8.9 and platelets 216 BUN 16.8 and creatinine 0.6 and sodium 140 potassium 4.0 and chloride 110. Patient is being continued on IV hydration with normal saline at 50 cc/h. Current medications reviewed. Objective - Vital Signs Vital signs: Vital Signs Temp 98.1 F 06/18/22 19:55 Pulse 87 06/18/22 19:55 Resp 16 06/18/22 19:55 BP 132/70 06/18/22 19:55 Pulse Ox 96 06/18/22 19:55 FiO2 Intake & Output 06/18/22 06/18/22 06/19/22 06:59 18:59 06:59 Output Total 550 650 Balance -550 -650 Weight 58.967 kg Output: Urine 550 650 Other: Voiding Method Indwelling Catheter Indwelling Catheter - Exam PHYSICAL EXAMINATION: Patient is lying in the bed comfortably, no acute distress, awake alert and oriented.. HEENT: Normocephalic. Neck is supple. Pupils reactive. Nostrils clear. Oral cavity is moist. Neck reveals no JVD, carotid bruits, or thyromegaly. CHEST EXAMINATION: Trachea is central. Symmetrical expansion. Lung fonseca clear to auscultation and percussion. CARDIAC: Normal S1, S2 with no gallops. No murmurs ABDOMEN: Soft. Bowel sounds present. Nontender. No organomegaly. No abdominal bruits. Extremities: reveal no edema. No clubbing or cyanosis Neurologically awake, alert, oriented x 2-3. No gross focal deficits noted Skin: No rash or skin lesions. Coccygeal region pressure ulcer Psychiatric: Coperative. Nonsuicidal, Musculoskeletal: No joint swelling or deformity. - Labs CBC & Chem 7: 06/18/22 05:13 06/18/22 05:13 Labs: Abnormal Lab Results - Last 24 Hours (Table) 06/17/22 06/18/22 06/18/22 Range/Units 18:49 05:13 05:13 RBC 2.66 L (4.10-5.20) X 10*6/uL Hgb 8.9 L (12.0-15.0) g/dL Hct 27.9 L (37.2-46.3) % MCV 104.9 H (80.0-97.0) fL MCH 33.5 H (27.0-32.0) pg MCHC 31.9 L (32.0-37.0) g/dL RDW 15.0 H (11.5-14.5) % Immature Gran # 0.06 H (0.00-0.04) X 10*3/uL Lymphocytes # 0.58 L (0.90-5.00) X 10*3/uL Chloride 110 H (96-109) mmol/L Anion Gap 9.60 L (10.00-18.00) mmol/L BUN/Creatinine Ratio 28.00 H (12.00-20.00) Ratio Calcium 7.7 L (8.7-10.3) mg/dL CA 15-3 Antigen 188.0 H (0.0-32.3) U/mL Vitamin B12 >1800.0 H (200.0-944.0) pg/mL Assessment and Plan Assessment: Generalized weakness and failure to thrive Hypokalemia Dehydration volume depletion Microcytic anemia Metastatic breast cancer with osteoblastic and osteolytic changes involving the spinous process and posterior upper thoracic vertebra and left ribs. Left upper lobe 6 mm pulmonary nodule Multilevel degenerative disc disease Hypothyroidism currently not taking any medications Sacral decub ulcers DVT prophylaxis with heparin subcu Plan: Patient will be continued on pain management and continue with wound care for sacral ulcers. Wound care consult and ID consult for evaluation.General surgery consult for possible debridement. Urinalysis is negative for infection. Patient was seen by oncology. Currently chemotherapy is on hold. Repeat tumor markers were ordered. Current with symptomatic management and follow-up closely. Prognosis guarded at this time. PT OT will be consulted. Time with Patient: Greater than 30
[2022-06-19] MEDS: IBUPROFEN 400 MG TAB PO PRN (03:25)
[2022-06-19] MEDS: DEXTROSE 5%-0.45% NACL 1,000 ML IV SCH ×2 (03:26→11:34)
[2022-06-19 05:12] LABS: HCT 31.2 % (34.0-46.0); HGB 9.6 gm/dL (11.4-16.0); Hypochromasia Slight; MCH 34.3 pg (25.0-35.0); MCHC 30.9 g/dL (31.0-37.0); Macrocytosis Marked; Platelet Count 261 k/uL (150-450); RBC 2.81 m/uL (3.80-5.40); RDW 14.8 % (11.5-15.5); WBC 6.2 k/uL (3.8-10.6)
[2022-06-19 05:15] LABS: MCV 110.8 fL (80.0-100.0)
[2022-06-19 05:20] LABS: African American GFR (CKD) >90 (>60 ml/min/1.73 sqM); Anion Gap 6 mmol/L; Blood Urea Nitrogen 14 mg/dL (7-17); Calcium 6.8 mg/dL (8.4-10.2); Carbon Dioxide 24 mmol/L (22-30); Chloride 106 mmol/L (98-107); Glucose 94 mg/dL (74-99); Non-African American GFR(CKD) >90 (>60 ml/min/1.73 sqM); Potassium 3.2 mmol/L (3.5-5.1); Sodium 136 mmol/L (137-145)
[2022-06-19 05:31] LABS: C Reactive Protein 11.8 mg/dL (<1.0)
[2022-06-19] MEDS: HEPARIN SODIUM,PORCINE/PF 5,000 UNIT/0.5 ML SYRINGE SQ SCH ×2 (07:38→12:12)
[2022-06-19] MEDS ORDERED: POTASSIUM CHLORIDE ER 20 MEQ TAB.ER PO STA (07:46)
[2022-06-19] MEDS ORDERED: ONDANSETRON 4 MG/2 ML VIAL ONE (11:48)
[2022-06-19] MEDS ORDERED: LACTATED RINGERS 1,000 ML IV ONE (12:11)
[2022-06-19] MEDS ORDERED: ONDANSETRON 4 MG/2 ML VIAL IVP ONE (12:11)
[2022-06-19] MEDS ORDERED: DEXAMETHASONE SOD PHOSPHATE 4 MG/ML 1 ML VIAL IVP ONE (12:11)
[2022-06-19] MEDS ORDERED: PROPOFOL 10 MG/ML 20 ML VIAL IV ONE (12:19)
[2022-06-19] MEDS ORDERED: MIDAZOLAM 2 MG/2 ML VIAL ONE (12:19)
[2022-06-19] MEDS ORDERED: fentaNYL (PF) 50 MCG/ML 2 ML AMP ONE (12:19)
[2022-06-19] MEDS ORDERED: KETAMINE 10 MG/ML 20 ML VIAL ONE (12:19)
--- NOTE | 2022-06-19 13:00 | P.OP ---
Date of Procedure: 06/19/22 Preoperative Diagnosis: Sacral decubitus ulcer Postoperative Diagnosis: Sacral decubitus ulcer Procedure(s) Performed: Debridement of sacral decubitus ulcer Anesthesia: ROSE MARY Surgeon: Fco Clements Estimated Blood Loss (ml): 5 Pathology: other (Sacral decubitus ulcer) Condition: stable Disposition: PACU Description of Procedure: The patient's placed on the operative table in the supine position. She received IV sedation. His then placed in the right lateral position. Her s acral decubitus ulcer was prepped. Using left cautery sharp dissection with a 15 blade the decubitus ulcer was debrided. The devitalized tissue sent to pathology. A specimen sent for tissue culture. The wound measured prostate 20 x 15 x 5 cm. He was achieved left cautery. The wound was packed with wet-to-dry Kerlix dressing soaked in Betadine. Sterile dressing applied. Patient top she will sent to recovery in stable condition.
[2022-06-19] MEDS ORDERED: HYDROmorphone 0.5 MG/0.5 ML SYRINGE IVP ONE (13:10)
[2022-06-19] MEDS ORDERED: POTASSIUM CHLORIDE ER 10 MEQ TAB.ER.PRT PO STA (14:07)
[2022-06-19] MEDS: THIAMINE 100 MG TAB PO SCH (17:42)
[2022-06-19] MEDS: HYDROcodone/APAP 5-325MG 1 EACH TAB PO PRN (20:04)
[2022-06-20] MEDS: HYDROcodone/APAP 5-325MG 1 EACH TAB PO PRN ×4 (01:07→23:29)
--- NOTE | 2022-06-20 02:34 | PN ---
PROGRESS NOTE DATE OF SERVICE: 06/19/2022 SUBJECTIVE: This is an 82-year-old woman, who was admitted with generalized weakness and failure to thrive, also had metastatic breast cancer. PT/OT is evaluating the patient for possible ECF rehab. No chest pain. No palpitations. No fever. The patient underwent debridement for sacral decubitus ulcer by Dr. Clements. OBJECTIVE: VITAL SIGNS: Pulse is 78, blood pressure 197/84, respirations 23. HEENT: Conjunctivae normal. NECK: No JVD. CARDIOVASCULAR: S1, S2 muffled. RESPIRATIONS: No rhonchi. No crackles. ABDOMEN: Soft, nontender. LEGS: No edema. No swelling. NERVOUS SYSTEM: Nonfocal. LABORATORY DATA: Reviewed. ASSESSMENT: 1. Generalized weakness and severe dehydration, present on admission. 2. Sacral decubitus ulcer. 3. Metastatic breast cancer. 4. Left upper lobe pulmonary nodule. 5. Hypokalemia. 6. Multiple medical issues. 7. Gait dysfunction. RECOMMENDATIONS AND DISCUSSION: This is an 82-year-old woman, who presented with multiple complex medical issues. We will monitor the patient closely. Continue the current medications, continue symptomatic treatment. Otherwise PT, OT evaluation, possible ECF rehab. We will continue to monitor with multiple consultants. Cultures are negative so far. Further recommendations to follow. MMODL / IJN: [id number] /
[2022-06-20] MEDS: IBUPROFEN 400 MG TAB PO PRN ×2 (03:13→20:32)
[2022-06-20] MEDS: THIAMINE 100 MG TAB PO SCH ×2 (06:40→17:06)
[2022-06-20] MEDS: HEPARIN SODIUM,PORCINE/PF 5,000 UNIT/0.5 ML SYRINGE SQ SCH ×2 (08:47→20:31)
[2022-06-20 09:28] LABS: Magnesium 1.9 mg/dL (1.5-2.4)
[2022-06-20 09:34] LABS: ALT 16 U/L (8-44); AST 15 U/L (13-35); African American GFR (CKD) 99.8 (60.0-200.0); Albumin 2.7 g/dL (3.8-4.9); Albumin/Globulin Ratio 1.08 (1.60-3.17); Alkaline Phosphatase 105 U/L (41-126); Blood Urea Nitrogen 13.8 mg/dL (9.0-27.0); Calcium 7.8 mg/dL (8.7-10.3); Carbon Dioxide 25.8 mmol/L (20.0-27.5); Chloride 104 mmol/L (96-109); Globulin 2.5 g/dL (1.6-3.3); Glucose 137 mg/dL (70-110); Non-African American GFR(CKD) 86.1 (60.0-200.0); Potassium 4.4 mmol/L (3.5-5.5); Sodium 137 mmol/L (135-145); Total Bilirubin <0.15 mg/dL (0.30-1.20); Total Protein 5.2 g/dL (6.2-8.2)
[2022-06-20 10:05] LABS: HCT 31.8 % (37.2-46.3); HGB 10.2 g/dL (12.0-15.0); MCH 33.8 pg (27.0-32.0); MCHC 32.1 g/dL (32.0-37.0); MCV 105.3 fL (80.0-97.0); Mean Platelet Volume 10.2 fL (9.5-12.2); NRBC Per 100 WBC 0 /100 WBCS (0.0-0.0); Platelet Count 304 X 10*3/uL (140-440); RBC 3.02 X 10*6/uL (4.10-5.20); RDW 14.9 % (11.5-14.5); WBC 7.69 X 10*3/uL (4.50-10.00)
[2022-06-20 10:41] LABS: Basophils # (A) 0.02 X 10*3/uL (0.00-0.10); Basophils % (A) 0.3 %; Elliptocytes 2+; Eosinophils # (A) 0 X 10*3/uL (0.04-0.35); Eosinophils % (A) 0 %; Lymphocytes # (A) 0.44 X 10*3/uL (0.90-5.00); Lymphocytes % (A) 5.7 %; Macrocytosis (M) 2+; Monocytes # (A) 0.57 X 10*3/uL (0.20-1.00); Monocytes % (A) 7.4 %; Neutrophils # (A) 6.58 X 10*3/uL (1.80-7.70); Neutrophils % (A) 85.6 %
--- NOTE | 2022-06-20 11:29 | P.CONS ---
History of Present Illness - Reason for Consult Consult date: 06/20/22 wound care - History of Present Illness This is an 82-year-old patient who lives with her son at home with developed a stage IV pressure ulcer to the sacrum. Patient underwent a surgical debridement resulting an ulceration measuring 20 x 15 x 5 cm. patient has undermining noted from 9:00 to 3:00 with granulation and multiple areas of Slough still present. Patient is a poor historian. Patient's past medical history significant for left lung and endometrial cancer, osteoporosis and hypothyroidism she is a lifelong nonsmoker. Review of systems: Unable to obtain patient is poor historian Physical exam: General Appearance: Alert, cooperative, no distress, appears stated age. Skin: See HPI all other Skin color, texture, tugor normal, no rashes or lesions. Neurologic: Alert oriented x3 Assessment: 1. Stage IV pressure ulcer sacrum Plan: 1. Apply negative pressure wound VAC and 125 mmHg continuous pressure to the sacral ulceration, change Saturday. Thank you for the consultation any questions to contact the wound care center DNP note has been reviewed and discussed with Dr. Rivas and the impression and plan of care has been directed as dictated. Past Medical History Past Medical History: Cancer, Osteoarthritis (OA), Thyroid Disorder Additional Past Medical History / Comment(s): L BREAST,LUNG AND ENDOMETRIAL CA. Osteoporosis and hypothyroidism. 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 History of Any Multi-Drug Resistant Organisms: C-DIFF Year Discovered:: 2002 MDRO Source:: STOOL Past Surgical History: Adenoidectomy, Breast Surgery, Hernia Repair, Hysterectomy, Joint Replacement, Tonsillectomy Additional Past Surgical History / Comment(s): LEFT KNEE REPLACED. left MASTECTOMY. RIGHT LOWER LOBECTOMY. LEFT HIP REPLACED. CHERIE BSO in 1996. Past Anesthesia/Blood Transfusion Reactions: No Reported Reaction, Motion Sickness Past Psychological History: No Psychological Hx Reported Smoking Status: Never smoker Past Alcohol Use History: None Reported Past Drug Use History: None Reported - Past Family History Father History Unknown: Yes Family Medical History: Unable to Obtain Daughter(s) Additional Family Medical History / Comment(s): Daughter has Crohn's disease. Mother Family Medical History: Coronary Artery Disease (CAD) Additional Family Medical History / Comment(s): CARDIAC VALVE PROBLEMS Brother(s) Family Medical History: Mitral Valve Prolapse (MVP) Additional Family Medical History / Comment(s): VALVE REPLACED. Medications and Allergies Home Medications Medication Instructions Recorded Confirmed Type Ibuprofen [Motrin] 300 mg PO TID 05/28/17 06/16/22 History Ribociclib Succinate [Kisqali] 600 mg PO DAILY 06/16/22 06/16/22 History Allergies Allergy/AdvReac Type Severity Reaction Status Date / Time celecoxib [From Celebrex] Allergy Rash/Hives Verified 06/16/22 22:17 Sulfa (Sulfonamide Allergy Rapid Verified 06/16/22 22:17 Antibiotics) Heart Rate Penicillins AdvReac Verified 06/16/22 22:17 Physical Exam Vitals: Vital Signs Temp Pulse Resp BP Pulse Ox 06/20/22 07:34 98.2 F 71 17 164/71 98 06/20/22 01:12 97.8 F 80 136/70 96 06/19/22 18:59 98 F 93 16 129/72 95 06/19/22 15:50 86 133/74 94 L 06/19/22 15:35 89 127/74 94 L 06/19/22 15:20 84 129/62 93 L 06/19/22 15:05 87 121/70 88 L 06/19/22 14:50 91 138/75 94 L 06/19/22 14:35 96 145/77 94 L 06/19/22 14:20 90 139/75 94 L 06/19/22 14:05 89 160/71 94 L 06/19/22 13:50 82 150/75 95 06/19/22 13:39 86 16 178/84 97 06/19/22 13:32 91 20 188/98 97 06/19/22 13:17 87 21 167/76 98 06/19/22 13:12 98 23 187/84 98 06/19/22 13:03 97 23 177/98 99 06/19/22 12:16 88 16 178/84 98 06/19/22 11:38 97.1 F L 83 16 190/85 99 Intake and Output 06/19/22 06/20/22 06/20/22 22:59 06:59 14:59 Output Total 450 320 Balance -450 -320 Output: Urine 450 320 Other: Voiding Method Indwelling Catheter # Bowel Movements 1 Results CBC & Chem 7: 06/20/22 05:13 06/20/22 05:13 Labs: Abnormal Lab Results - Last 24 Hours (Table) 06/17/22 06/18/22 06/19/22 Range/Units 18:49 05:13 05:56 RBC (4.10-5.20) X 10*6/uL Hgb (12.0-15.0) g/dL Hct (37.2-46.3) % MCV (80.0-97.0) fL MCH (27.0-32.0) pg RDW (11.5-14.5) % Immature Gran # (0.00-0.04) X 10*3/uL Lymphocytes # (0.90-5.00) X 10*3/uL Eosinophils # (0.04-0.35) X 10*3/uL ESR 54 H (0-30) mm/Hr Anion Gap (10.00-18.00) mmol/L BUN/Creatinine Ratio (12.00-20.00) Ratio Glucose (70-110) mg/dL Calcium (8.7-10.3) mg/dL Total Bilirubin (0.30-1.20) mg/dL Total Protein (6.2-8.2) g/dL Albumin (3.8-4.9) g/dL Albumin/Globulin Ratio (1.60-3.17) g/dL CA 27-29 302.0 H (<38.6) U/mL RBC Folate 1,003 H (280 - 791) ng/mL 06/20/22 06/20/22 Range/Units 05:13 05:13 RBC 3.02 L (4.10-5.20) X 10*6/uL Hgb 10.2 L (12.0-15.0) g/dL Hct 31.8 L (37.2-46.3) % MCV 105.3 H (80.0-97.0) fL MCH 33.8 H (27.0-32.0) pg RDW 14.9 H (11.5-14.5) % Immature Gran # 0.08 H (0.00-0.04) X 10*3/uL Lymphocytes # 0.44 L (0.90-5.00) X 10*3/uL Eosinophils # 0 L (0.04-0.35) X 10*3/uL ESR (0-30) mm/Hr Anion Gap 7.20 L (10.00-18.00) mmol/L BUN/Creatinine Ratio 23.00 H (12.00-20.00) Ratio Glucose 137 H (70-110) mg/dL Calcium 7.8 L (8.7-10.3) mg/dL Total Bilirubin <0.15 L (0.30-1.20) mg/dL Total Protein 5.2 L (6.2-8.2) g/dL Albumin 2.7 L (3.8-4.9) g/dL Albumin/Globulin Ratio 1.08 L (1.60-3.17) g/dL CA 27-29 (<38.6) U/mL RBC Folate (280 - 791) ng/mL Microbiology - Last 24 Hours (Table) 06/19/22 12:57 Gram Stain - Preliminary Buttock Tissue Culture - Preliminary 06/19/22 12:57 Anaerobic Culture - Preliminary Buttock Assessment and Plan (1) Pressure injury of sacral region, stage 4 Current Visit: Yes Status: Acute Code(s): L89.154 - PRESSURE ULCER OF SACRAL REGION, STAGE 4 SNOMED Code(s): 89897870512404 (2) Weakness Current Visit: Yes Status: Acute Code(s): R53.1 - WEAKNESS SNOMED Code(s): 02284947
--- NOTE | 2022-06-20 11:40 | P.PN ---
Subjective Progress Note Date: 06/20/22 CHIEF COMPLAINT: Sacral decubitus ulcer HISTORY OF PRESENT ILLNESS: Patient is postop day #1 status post debridement of sacral decubitus ulcer. Patient reports her pain is controlled. She has been seen by wound care service. They've ordered a wound VAC. Culture results pending. afebrile. WBC 7.69 Hgb 10.2 platelets 304 potassium 3.2 up to 4.4. Patient did have bowel movement. PHYSICAL EXAM: VITAL SIGNS: Reviewed. GENERAL: Well-developed in no acute distress. ABDOMEN: Soft. Nondistended. Nontender. NEUROLOGIC: Alert and oriented. Cranial nerves II through XII grossly intact. ASSESSMENT: 1. Sacral decubitus ulcer status post treatment 2. History of breast cancer with bone metastases PLAN: -Agree with wound VAC placement -Continue offloading -Continue supportive care Physician Inspector Cold Working note has been reviewed by physician. Signing provider agrees with the documented findings, assessment, and plan of care. Objective - Vital Signs Vital signs: Vital Signs Temp 98.2 F 06/20/22 07:34 Pulse 71 06/20/22 07:34 Resp 17 06/20/22 07:34 BP 164/71 06/20/22 07:34 Pulse Ox 98 06/20/22 07:34 FiO2 Intake & Output 06/19/22 06/20/22 06/20/22 18:59 06:59 18:59 Intake Total 1400 Output Total 1970 320 Balance -570 -320 Intake: IV 1400 Output: Urine 1950 320 Estimated Blood Loss 20 Other: Voiding Method Indwelling Catheter Indwelling Catheter # Bowel Movements 1 - Labs CBC & Chem 7: 06/20/22 05:13 06/20/22 05:13 Labs: Abnormal Lab Results - Last 24 Hours (Table) 06/17/22 06/18/22 06/20/22 Range/Units 18:49 05:13 05:13 RBC (4.10-5.20) X 10*6/uL Hgb (12.0-15.0) g/dL Hct (37.2-46.3) % MCV (80.0-97.0) fL MCH (27.0-32.0) pg RDW (11.5-14.5) % Immature Gran # (0.00-0.04) X 10*3/uL Lymphocytes # (0.90-5.00) X 10*3/uL Eosinophils # (0.04-0.35) X 10*3/uL Anion Gap 7.20 L (10.00-18.00) mmol/L BUN/Creatinine Ratio 23.00 H (12.00-20.00) Ratio Glucose 137 H (70-110) mg/dL Calcium 7.8 L (8.7-10.3) mg/dL Total Bilirubin <0.15 L (0.30-1.20) mg/dL Total Protein 5.2 L (6.2-8.2) g/dL Albumin 2.7 L (3.8-4.9) g/dL Albumin/Globulin Ratio 1.08 L (1.60-3.17) g/dL CA 27-29 302.0 H (<38.6) U/mL RBC Folate 1,003 H (280 - 791) ng/mL 06/20/22 Range/Units 05:13 RBC 3.02 L (4.10-5.20) X 10*6/uL Hgb 10.2 L (12.0-15.0) g/dL Hct 31.8 L (37.2-46.3) % MCV 105.3 H (80.0-97.0) fL MCH 33.8 H (27.0-32.0) pg RDW 14.9 H (11.5-14.5) % Immature Gran # 0.08 H (0.00-0.04) X 10*3/uL Lymphocytes # 0.44 L (0.90-5.00) X 10*3/uL Eosinophils # 0 L (0.04-0.35) X 10*3/uL Anion Gap (10.00-18.00) mmol/L BUN/Creatinine Ratio (12.00-20.00) Ratio Glucose (70-110) mg/dL Calcium (8.7-10.3) mg/dL Total Bilirubin (0.30-1.20) mg/dL Total Protein (6.2-8.2) g/dL Albumin (3.8-4.9) g/dL Albumin/Globulin Ratio (1.60-3.17) g/dL CA 27-29 (<38.6) U/mL RBC Folate (280 - 791) ng/mL Microbiology - Last 24 Hours (Table) 06/19/22 12:57 Gram Stain - Preliminary Buttock Tissue Culture - Preliminary 06/19/22 12:57 Anaerobic Culture - Preliminary Buttock
[2022-06-20] MEDS: FOLIC ACID 1 MG TAB PO SCH (12:54)
[2022-06-20] MEDS: MULTIVITAMINS, THERA 1 EACH TAB PO SCH (12:54)
--- NOTE | 2022-06-20 13:43 | P.PN ---
Subjective Progress Note Date: 06/19/22 Principal diagnosis: Infected sacral pressure ulcer Patient is a 82-year-old female with multiple comorbidities, presented to hospital with weakness and a worsening wound to the sacral area with the patient has for a couple of weeks, patient is status post surgical debridement and deep cultures completed on 06/19/2022 On today's evaluation that is 06/19/2022, the patient denies having any fever or chills, the patient is breathing comfortably on room air, patient denies having any chest pain shortness of breath or cough no abdominal pain or diarrhea Objective - Vital Signs Vital signs: Vital Signs Temp 97.1 F L 06/19/22 11:38 Pulse 88 06/19/22 12:16 Resp 16 06/19/22 12:16 BP 178/84 06/19/22 12:16 Pulse Ox 98 06/19/22 12:16 FiO2 Intake & Output 06/18/22 06/19/22 06/19/22 18:59 06:59 18:59 Intake Total 200 1100 Output Total 650 0 1500 Balance -650 200 -400 Weight 58.967 kg Intake: IV 1100 Oral 200 Output: Urine 650 0 1500 Other: Voiding Method Indwelling Catheter Indwelling Catheter Indwelling Catheter # Voids 0 - Exam GENERAL DESCRIPTION: An elderly female lying in bed in no distress RESPIRATORY SYSTEM: Unlabored breathing , decreased breath sounds at bases HEART: S1 S2 regular rate and rhythm , ABDOMEN: Soft , no tenderness EXTREMITIES: No edema feet - Labs CBC & Chem 7: 06/20/22 05:13 06/20/22 05:13 Labs: Abnormal Lab Results - Last 24 Hours (Table) 06/19/22 06/19/22 06/19/22 Range/Units 04:21 04:21 04:21 RBC 2.81 L (3.80-5.40) m/uL Hgb 9.6 L (11.4-16.0) gm/dL Hct 31.2 L (34.0-46.0) % MCV 110.8 H D (80.0-100.0) fL MCHC 30.9 L (31.0-37.0) g/dL Macrocytosis Marked A ESR (0-30) mm/Hr Sodium 136 L (137-145) mmol/L Potassium 3.2 L (3.5-5.1) mmol/L Creatinine 0.41 L (0.52-1.04) mg/dL Calcium 6.8 L (8.4-10.2) mg/dL C-Reactive Protein 11.8 H (<1.0) mg/dL Procalcitonin 0.12 H (0.02-0.09) ng/mL 06/19/22 Range/Units 05:56 RBC (3.80-5.40) m/uL Hgb (11.4-16.0) gm/dL Hct (34.0-46.0) % MCV (80.0-100.0) fL MCHC (31.0-37.0) g/dL Macrocytosis ESR 54 H (0-30) mm/Hr Sodium (137-145) mmol/L Potassium (3.5-5.1) mmol/L Creatinine (0.52-1.04) mg/dL Calcium (8.4-10.2) mg/dL C-Reactive Protein (<1.0) mg/dL Procalcitonin (0.02-0.09) ng/mL Assessment and Plan (1) Pressure injury of sacral region, stage 4 Current Visit: Yes Status: Acute Code(s): L89.154 - PRESSURE ULCER OF SACRAL REGION, STAGE 4 SNOMED Code(s): 54925872955237 Plan: 1patient was rehospitalized with transient multifactorial in this patient who did have a unstageable sacral pressure ulcer and concern for infected wound with a foul-smelling drainage, patient is status post surgical debridement and deep culture which are currently pending 2-patient also have a abnormal x-ray concerning for possible right lower lobe consolidation versus metastatic disease as the patient currently not running a fever or elevated white count pneumonia less likely but not entirely excluded 3-patient CRP was 11.8 and procalcitonin is 0.12 clinically doubt pneumonia 4Patient to continue with Rocephin 2 g daily while waiting for the cultures to finalize Time with Patient: Less than 30
--- NOTE | 2022-06-20 13:44 | P.PN ---
Subjective Progress Note Date: 06/20/22 Principal diagnosis: Infected sacral pressure ulcer Patient is a 82-year-old female with multiple comorbidities, presented to hospital with weakness and a worsening wound to the sacral area with the patient has for a couple of weeks, patient is status post surgical debridement and deep cultures completed on 06/19/2022 On today's evaluation that is 06/20/2022, the patient continues to be afebrile, the patient is breathing comfortably on room air, patient denies chest pain shortness of breath or cough , the patient denies any nausea no vomiting no abdominal pain or diarrhea, pain to the sacral wound is currently controlled Objective - Vital Signs Vital signs: Vital Signs Temp 98.2 F 06/20/22 07:34 Pulse 71 06/20/22 07:34 Resp 17 06/20/22 07:34 BP 164/71 06/20/22 07:34 Pulse Ox 98 06/20/22 07:34 FiO2 Intake & Output 06/19/22 06/20/22 06/20/22 18:59 06:59 18:59 Intake Total 1400 Output Total 1970 320 Balance -570 -320 Intake: IV 1400 Output: Urine 1950 320 Estimated Blood Loss 20 Other: Voiding Method Indwelling Catheter Indwelling Catheter # Bowel Movements 1 - Exam GENERAL DESCRIPTION: An elderly female lying in bed in no distress RESPIRATORY SYSTEM: Unlabored breathing , decreased breath sounds at bases HEART: S1 S2 regular rate and rhythm , ABDOMEN: Soft , no tenderness EXTREMITIES: No edema feet - Labs CBC & Chem 7: 06/20/22 05:13 06/20/22 05:13 Labs: Abnormal Lab Results - Last 24 Hours (Table) 06/18/22 06/20/22 06/20/22 Range/Units 05:13 05:13 05:13 RBC 3.02 L (4.10-5.20) X 10*6/uL Hgb 10.2 L (12.0-15.0) g/dL Hct 31.8 L (37.2-46.3) % MCV 105.3 H (80.0-97.0) fL MCH 33.8 H (27.0-32.0) pg RDW 14.9 H (11.5-14.5) % Immature Gran # 0.08 H (0.00-0.04) X 10*3/uL Lymphocytes # 0.44 L (0.90-5.00) X 10*3/uL Eosinophils # 0 L (0.04-0.35) X 10*3/uL Anion Gap 7.20 L (10.00-18.00) mmol/L BUN/Creatinine Ratio 23.00 H (12.00-20.00) Ratio Glucose 137 H (70-110) mg/dL Calcium 7.8 L (8.7-10.3) mg/dL Total Bilirubin <0.15 L (0.30-1.20) mg/dL Total Protein 5.2 L (6.2-8.2) g/dL Albumin 2.7 L (3.8-4.9) g/dL Albumin/Globulin Ratio 1.08 L (1.60-3.17) g/dL RBC Folate 1,003 H (280 - 791) ng/mL Microbiology - Last 24 Hours (Table) 06/19/22 12:57 Gram Stain - Preliminary Buttock Tissue Culture - Preliminary 06/19/22 12:57 Anaerobic Culture - Preliminary Buttock Assessment and Plan (1) Pressure injury of sacral region, stage 4 Current Visit: Yes Status: Acute Code(s): L89.154 - PRESSURE ULCER OF SACRAL REGION, STAGE 4 SNOMED Code(s): 33853544277541 Plan: 1patient was rehospitalized with transient multifactorial in this patient who did have a unstageable sacral pressure ulcer and concern for infected wound with a foul-smelling drainage, patient is status post surgical debridement and deep culture which are currently pending 2-patient also have a abnormal x-ray concerning for possible right lower lobe consolidation versus metastatic disease as the patient currently not running a fever or elevated white count pneumonia less likely but not entirely excluded 3-patient CRP was 11.8 and procalcitonin is 0.12 clinically doubt pneumonia 4Patient will continue with Rocephin 2 g daily while waiting for the cultures to finalize, local wound care to continue per the wound care team which has been consulted this morning Time with Patient: Less than 30
--- NOTE | 2022-06-20 17:03 | CDI ---
Documentation Clarification Form Date: 06/20/2022 4:48:58 PM From: Ryann Curtis RN CCDS Phone: [phone] Admit Date: 06/17/2022 12:03:00 AM Patient Name: Kerry Mireles Visit Number: [id number] Discharge Date: ATTENTION: The Clinical Documentation Specialists (CDI) and [facility] Coding Staff appreciate your assistance in clarifying documentation. Please respond to the clarification below the line at the bottom and electronically sign. The CDI & [facility] Coding staff will review the response and follow-up if needed. Please note: Queries are made part of the Legal Health Record. If you have any questions, please contact the author of this message via ITS. Dr. Fco Clements A debridement is documented 06/19, Sacral decubitus ulcer. Additional clarification regarding the procedure is requested. History/Risk Factors: 82-year-old female presents to the ED for increasing weakness, frequent falls, loss of appetite, unable to get out of her chair and decreased activity. Medical History: Left breast, Lung and endometrial cancer, Hypothyroidism. Clinical Indicators: Sacral decubitus ulcer unstageable with foul smelling drainage. Procedure, 06/19: Left cautery sharp dissection with a 15 blade the decubitus ulcer was debrided. Devitalized tissue. Wound measured approximate 20 x 15 x 5cm Treatment: 06/19 Debridement of sacral decubitus ulcer Please clarify the type of procedure performed and depth: [ xx ] Excisional debridement (the removal of necrotic, devitalized tissue or slough by means of cutting away of tissue) [ ] Non-excisional debridement (the removal of necrotic, devitalized tissue or slough by means of flushing, brushing, or washing. (Irrigation) [ ] Depth of the debridement*(e.g., skin, subcutaneous tissue, fascia, muscle, bone, etc.) [ ] Other; please specify [ ] Unable to determine Five elements required for accurate and compliant documentation of a debridement: Technique used (e.g., excisional, excised, cutting, brushing, jet lavage etc.) Instrument(s) used (e.g., scalpel, curette, etc.) Nature of the tissue removed (e.g., necrotic, devitalized tissues, non-viable tissue, etc.) Appearance and size of the wound (e.g., down to fresh bleeding tissue, 7cm x 10cm, etc.) Depth of the debridement* (e.g., skin, subcutaneous tissue, fascia, muscle, bone, etc.) (Template Last Revised: April 2020) MTDD
[2022-06-20] MEDS: DEXTROSE 5%-0.45% NACL 1,000 ML IV SCH (17:06)
[2022-06-20] MEDS: MELATONIN 5 MG TABLET PO PRN (23:29)
[2022-06-20] MEDS: ARTIFICIAL TEARS-HYPROMELLOSE DROPS 15 ML BTL BOTH EYES PRN (23:31)
[2022-06-21] MEDS: IBUPROFEN 400 MG TAB PO PRN (02:28)
[2022-06-21] MEDS: HYDROcodone/APAP 5-325MG 1 EACH TAB PO PRN ×3 (05:40→20:14)
--- NOTE | 2022-06-21 07:31 | PN ---
PROGRESS NOTE DATE OF SERVICE: 06/20/2022 SUBJECTIVE: This is an 82-year-old woman who was admitted with significant decubitus ulcer and weakness, is being closely monitored. The patient underwent debridement. Cultures are negative so far. The patient is on broad-spectrum IV antibiotics. Infectious Disease is following the patient closely. OBJECTIVE: VITAL SIGNS: Pulse is 98, blood pressure 120/70, respirations 17. CHEST: Clear to auscultation. CARDIOVASCULAR: S1, S2 muffled. ABDOMEN: Soft. PELVIC: Sacral decubitus present. Otherwise, cultures are pending. ASSESSMENT: 1. Sacral decubitus ulcer with failure of outpatient treatment. 2. Generalized weakness and severe dehydration present on admission. 3. Metastatic breast cancer. 4. Left upper lobe pulmonary nodule. 5. Hypokalemia. 6. Gait dysfunction. 7. Multiple medical issues. RECOMMENDATIONS: Recommend to continue current medications. Continue symptomatic treatment. Otherwise, PT/OT evaluation, possible ECF rehab. Continue with antibiotics. Antibiotic recommendation per Dr. Alejo. I would also recommend social science research assistant to evaluate the home situation. Apparently, the patient is living at home by herself with some family supervision. MMODL / IJN: [id number] /
[2022-06-21] MEDS: DEXTROSE 5%-0.45% NACL 1,000 ML IV SCH (08:08)
[2022-06-21] MEDS: HEPARIN SODIUM,PORCINE/PF 5,000 UNIT/0.5 ML SYRINGE SQ SCH ×2 (08:09→21:15)
[2022-06-21] MEDS: MULTIVITAMINS, THERA 1 EACH TAB PO SCH (08:09)
[2022-06-21] MEDS: FOLIC ACID 1 MG TAB PO SCH (08:09)
[2022-06-21] MEDS: THIAMINE 100 MG TAB PO SCH ×2 (08:10→17:07)
--- NOTE | 2022-06-21 12:55 | CDI ---
Documentation Clarification Form Date: 06/21/2022 12:48:42 PM From: Ryann Curtis Phone: [phone] Admit Date: 06/17/2022 12:03:00 AM Patient Name: Kerry Mireles Visit Number: [id number] Discharge Date: ATTENTION: The Clinical Documentation Specialists (CDI) and [facility] Coding Staff appreciate your assistance in clarifying documentation. Please respond to the clarification below the line at the bottom and electronically sign. The CDI & [facility] Coding staff will review the response and follow-up if needed. Please note: Queries are made part of the Legal Health Record. If you have any questions, please contact the author of this message via ITS. Dr. Fco Clmeents A debridement is documented 06/19, Sacral decubitus ulcer. Additional clarification regarding the procedure is requested. History/Risk Factors: 82-year-old female presents to the ED for increasing weakness, frequent falls, loss of appetite, unable to get out of her chair and decreased activity. Medical History: Left breast, Lung and endometrial cancer, Hypothyroidism. Clinical Indicators: Sacral decubitus ulcer unstageable with foul smelling drainage. Procedure, 06/19: Left cautery sharp dissection with a 15 blade the decubitus ulcer was debrided. Devitalized tissue. Wound measured approximate 20 x 15 x 5cm Treatment: 06/19 Debridement of sacral decubitus ulcer Please clarify the depth of the debridement: [ Skin, subcutaneous tissue, fascia, muscle ] Depth of the debridement*(e.g., skin, subcutaneous tissue, fascia, muscle, bone, etc.) [ ] Other; please specify [ ] Unable to determine Five elements required for accurate and compliant documentation of a debridement: Technique used (e.g., excisional, excised, cutting, brushing, jet lavage etc.) Instrument(s) used (e.g., scalpel, curette, etc.) Nature of the tissue removed (e.g., necrotic, devitalized tissues, non-viable tissue, etc.) Appearance and size of the wound (e.g., down to fresh bleeding tissue, 7cm x 10cm, etc.) Depth of the debridement* (e.g., skin, subcutaneous tissue, fascia, muscle, bone, etc.) (Template Last Revised: April 2020) MTDD
--- NOTE | 2022-06-21 13:54 | P.PN ---
Subjective Progress Note Date: 06/21/22 CHIEF COMPLAINT: Sacral decubitus ulcer HISTORY OF PRESENT ILLNESS: Patient is postop day #2 status post debridement of sacral decubitus ulcer. Patient reports her pain is controlled. Patient is status post wound VAC placement. Afebrile. WBC 7.69 culture results pending Patient seen and examined with Dr. Clements PHYSICAL EXAM: VITAL SIGNS: Reviewed. GENERAL: Well-developed in no acute distress. ABDOMEN: Soft. Nondistended. Nontender. NEUROLOGIC: Alert and oriented. Cranial nerves II through XII grossly intact. ASSESSMENT: 1. Sacral decubitus ulcer status post treatment 2. History of breast cancer with bone metastases PLAN: -Continue wound VAC -Continue offloading -Continue supportive care -Follow up on culture results -Antibiotics per ID service Physician Java Developer note has been reviewed by physician. Signing provider agrees with the documented findings, assessment, and plan of care. Objective - Vital Signs Vital signs: Vital Signs Temp 99.0 F 06/21/22 13:46 Pulse 111 H 06/21/22 13:46 Resp 16 06/21/22 13:46 BP 149/78 06/21/22 13:46 Pulse Ox 98 06/21/22 13:46 FiO2 Intake & Output 06/20/22 06/21/22 06/21/22 18:59 06:59 18:59 Intake Total 50 Output Total 450 1600 Balance -450 -1600 50 Intake: Intake, IV Titration 50 Amount cefTRIAXone 2 gm In 50 Sodium Chloride 0.9% 50 ml @ 100 mls/hr IVPB Q24HR [facility] Rx#:[id number] Output: Urine 450 1600 Other: Voiding Method Indwelling Catheter Indwelling Catheter Indwelling Catheter - Labs CBC & Chem 7: 06/20/22 05:13 06/20/22 05:13 Labs: Microbiology - Last 24 Hours (Table) 06/19/22 12:57 Gram Stain - Preliminary Buttock Tissue Culture - Preliminary
[2022-06-21 16:56] LABS: Prothrombin Time 10.4 sec (9.0-12.0)
[2022-06-22] MEDS: HYDROcodone/APAP 5-325MG 1 EACH TAB PO PRN ×3 (01:34→19:50)
[2022-06-22] MEDS: MELATONIN 5 MG TABLET PO PRN ×2 (01:35→23:13)
[2022-06-22] MEDS: THIAMINE 100 MG TAB PO SCH ×2 (06:42→16:36)
[2022-06-22] MEDS: DEXTROSE 5%-0.45% NACL 1,000 ML IV SCH (06:42)
[2022-06-22] MEDS: HEPARIN SODIUM,PORCINE/PF 5,000 UNIT/0.5 ML SYRINGE SQ SCH ×2 (09:01→20:46)
[2022-06-22] MEDS: MULTIVITAMINS, THERA 1 EACH TAB PO SCH (09:01)
[2022-06-22] MEDS: FOLIC ACID 1 MG TAB PO SCH (09:01)
[2022-06-22] MEDS: ARTIFICIAL TEARS-HYPROMELLOSE DROPS 15 ML BTL BOTH EYES PRN (09:10)
[2022-06-22] MEDS: IBUPROFEN 400 MG TAB PO PRN ×2 (09:10→23:13)
[2022-06-22 09:21] LABS: African American GFR (CKD) 98.7 (60.0-200.0); Anion Gap 9.5 mmol/L (10.00-18.00); BUN/Creat Ratio 16.61 Ratio (12.00-20.00); Blood Urea Nitrogen 10.3 mg/dL (9.0-27.0); Calcium 7.8 mg/dL (8.7-10.3); Carbon Dioxide 25.3 mmol/L (20.0-27.5); Non-African American GFR(CKD) 85.2 (60.0-200.0); Potassium 4.1 mmol/L (3.5-5.5)
--- NOTE | 2022-06-22 09:43 | PN ---
PROGRESS NOTE DATE OF SERVICE: 06/21/2022 SUBJECTIVE: This is an 82-year-old woman, who was admitted with extensive sacral decubitus ulcer and gait dysfunction, is being closely monitored at this time. The patient is on IV antibiotics. Final cultures are pending at this time. Otherwise, PT/OT evaluating the patient for possible ECF rehab. OBJECTIVE: VITAL SIGNS: Pulse is 111, blood pressure 140/70, respirations 16. CHEST: Clear to auscultation. CARDIOVASCULAR: S1, S2 muffled. ABDOMEN: Soft. NERVOUS SYSTEM: Nonfocal. LABORATORY DATA: ESR 54. Otherwise procalcitonin 0.12. ASSESSMENT: 1. Sacral decubitus ulcer with failure of outpatient treatment, possibly pressure ulcer stage IV, present on admission. 2. Generalized weakness and severe dehydration, present on admission. 3. Metastatic breast cancer. 4. Left upper lobe pulmonary nodule. 5. Hypokalemia. 6. Multiple medical issues. 7. Gait dysfunction. RECOMMENDATIONS: Continue current medications and symptomatic treatment. Otherwise, we will repeat labs as mentioned earlier. Continue the empiric antibiotics. Follow the cultures. Follow with multiple consultants. Prognosis is guarded. Further recommendations to follow. MMODL / IJN: [id number] /
[2022-06-22 09:47] LABS: Basophils % (A) 1.4 %; Eosinophils # (A) 0.12 X 10*3/uL (0.04-0.35); Eosinophils % (A) 1.7 %; HCT 28.8 % (37.2-46.3); HGB 9.7 g/dL (12.0-15.0); Immature Grans, Automated 1.7 %; Lymphocytes % (A) 9.7 %; MCH 33.9 pg (27.0-32.0); MCHC 33.7 g/dL (32.0-37.0); MCV 100.7 fL (80.0-97.0); Mean Platelet Volume 9.7 fL (9.5-12.2); Monocytes % (A) 8.3 %; NRBC Per 100 WBC 0 /100 WBCS (0.0-0.0); Neutrophils % (A) 77.2 %; Platelet Count 357 X 10*3/uL (140-440); RBC 2.86 X 10*6/uL (4.10-5.20); RDW 14.9 % (11.5-14.5); WBC 7.24 X 10*3/uL (4.50-10.00)
--- NOTE | 2022-06-22 11:30 | P.PN ---
Subjective Progress Note Date: 06/22/22 CHIEF COMPLAINT: Sacral decubitus ulcer HISTORY OF PRESENT ILLNESS: Patient is postop day #3 status post debridement of sacral decubitus ulcer. Patient reports her pain is controlled. Patient is status post wound VAC placement. Afebrile. WBC 7.24. Tissue culture coagulase negative staph. Path report showed gangrenous necrosis with acute inflammation, abscess and fibrosis. Possible discharge to ECF today Patient seen and examined with Dr. Clements PHYSICAL EXAM: VITAL SIGNS: Reviewed. GENERAL: Well-developed in no acute distress. ABDOMEN: Soft. Nondistended. Nontender. NEUROLOGIC: Alert and oriented. Cranial nerves II through XII grossly intact. ASSESSMENT: 1. Sacral decubitus ulcer status post debridement 2. History of breast cancer with bone metastases PLAN: -Continue wound VAC -Continue offloading -Continue supportive care -Discharge antibiotics per ID service -Patient can be discharged from surgical standpoint when medically clear Physician Paper Novelty Maker note has been reviewed by physician. Signing provider agrees with the documented findings, assessment, and plan of care. Objective - Vital Signs Vital signs: Vital Signs Temp 98.4 F 06/22/22 07:16 Pulse 91 06/22/22 07:16 Resp 17 06/22/22 07:16 BP 148/75 06/22/22 07:16 Pulse Ox 96 06/22/22 07:16 FiO2 Intake & Output 06/21/22 06/22/22 06/22/22 18:59 06:59 18:59 Intake Total 50 1420 236 Output Total 1500 2500 Balance -1450 -1080 236 Weight 58.967 kg Intake: Intake, IV Titration 50 600 Amount Dextrose 5%-0.45% NaCl 1, 600 000 ml @ 50 mls/hr IV . Q20H [facility] Rx#:[id number] cefTRIAXone 2 gm In 50 Sodium Chloride 0.9% 50 ml @ 100 mls/hr IVPB Q24HR [facility] Rx#:[id number] Oral 820 236 Output: Drainage 0 Posterior Buttock 0 Urine 1500 2500 Uretheral (Nieto) 2500 Other: Voiding Method Indwelling Catheter Indwelling Catheter Indwelling Catheter - Labs CBC & Chem 7: 06/22/22 03:57 06/22/22 03:57 Labs: Abnormal Lab Results - Last 24 Hours (Table) 06/22/22 06/22/22 Range/Units 03:57 03:57 RBC 2.86 L (4.10-5.20) X 10*6/uL Hgb 9.7 L (12.0-15.0) g/dL Hct 28.8 L (37.2-46.3) % MCV 100.7 H (80.0-97.0) fL MCH 33.9 H (27.0-32.0) pg RDW 14.9 H (11.5-14.5) % Immature Gran # 0.12 H (0.00-0.04) X 10*3/uL Lymphocytes # 0.70 L (0.90-5.00) X 10*3/uL Anion Gap 9.50 L (10.00-18.00) mmol/L Calcium 7.8 L (8.7-10.3) mg/dL Microbiology - Last 24 Hours (Table) 06/19/22 12:57 Gram Stain - Preliminary Buttock Tissue Culture - Preliminary Coagulase Negative Staph
--- NOTE | 2022-06-22 13:54 | P.PN ---
Subjective Progress Note Date: 06/22/22 Principal diagnosis: failure to thrive, hx breast cancer At today's visit patient is resting comfortably in bed. She reports feeling improved. Patient is reporting bilateral knee pain, which is chronic in nature. Denies dizziness, shortness of breath, chest pain, and weakness. Plan is for rehabilitation upon discharge. Wound vac in place, patient continues on IV antibiotics. Objective - Vital Signs Vital signs: Vital Signs Temp 98.4 F 06/22/22 07:16 Pulse 91 06/22/22 07:16 Resp 17 06/22/22 07:16 BP 148/75 06/22/22 07:16 Pulse Ox 96 06/22/22 07:16 FiO2 Intake & Output 06/21/22 06/22/22 06/22/22 18:59 06:59 18:59 Intake Total 50 1420 236 Output Total 1500 2500 Balance -1450 -1080 236 Weight 58.967 kg Intake: Intake, IV Titration 50 600 Amount Dextrose 5%-0.45% NaCl 1, 600 000 ml @ 50 mls/hr IV . Q20H [facility] Rx#:[id number] cefTRIAXone 2 gm In 50 Sodium Chloride 0.9% 50 ml @ 100 mls/hr IVPB Q24HR [facility] Rx#:[id number] Oral 820 236 Output: Drainage 0 Posterior Buttock 0 Urine 1500 2500 Uretheral (Nieto) 2500 Other: Voiding Method Indwelling Catheter Indwelling Catheter Indwelling Catheter - Constitutional General appearance: Present: average body habitus, no acute distress - EENT Eyes: Present: anicteric sclerae, EOMI ENT: Present: hearing grossly normal - Respiratory Details: breathing is even and unlabored - Cardiovascular Details: skin is warm and dry - Integumentary Integumentary: Present: pale - Neurologic Neurologic Comment(s): grossly intact - Musculoskeletal Musculoskeletal: Present: generalized weakness - Psychiatric Psychiatric: Present: A&O x's 3, appropriate affect, intact judgment & insight - Labs CBC & Chem 7: 06/22/22 03:57 06/22/22 03:57 Labs: Abnormal Lab Results - Last 24 Hours (Table) 06/22/22 06/22/22 Range/Units 03:57 03:57 RBC 2.86 L (4.10-5.20) X 10*6/uL Hgb 9.7 L (12.0-15.0) g/dL Hct 28.8 L (37.2-46.3) % MCV 100.7 H (80.0-97.0) fL MCH 33.9 H (27.0-32.0) pg RDW 14.9 H (11.5-14.5) % Immature Gran # 0.12 H (0.00-0.04) X 10*3/uL Lymphocytes # 0.70 L (0.90-5.00) X 10*3/uL Anion Gap 9.50 L (10.00-18.00) mmol/L Calcium 7.8 L (8.7-10.3) mg/dL Microbiology - Last 24 Hours (Table) 06/19/22 12:57 Gram Stain - Preliminary Buttock Tissue Culture - Preliminary Coagulase Negative Staph Assessment and Plan (1) Carcinoma of breast metastatic to bone Current Visit: Yes Status: Acute Priority: High Code(s): C50.919 - MALIGNANT NEOPLASM OF UNSP SITE OF UNSPECIFIED FEMALE BREAST; C79.51 - SECONDARY MALIGNANT NEOPLASM OF BONE SNOMED Code(s): 27258436 (2) Weakness Current Visit: Yes Status: Acute Code(s): R53.1 - WEAKNESS SNOMED Code(s): 06154536 Plan: Breast cancer: -Remote hx of left breast cancer in 1993 with modified radical mastectomy. Recurrence in 2004, was found to have a mass in the in the right lung and had a right upper lobectomy. Has been on multiple treatment regimens due to recurrence and progression of disease. CT CAP in 11/16 were stable, but bone scan showed probable progression in the upper Lumbar , lower T-spine, left chest wall, rt femur. Switched to Kisqali and Faslodex. S/p completion of cycle 7 Faslodex on 06/06/22. She denies missing any doses of Kisqali -Plan to continue to hold kisqali until follow-up with Dr. Lucio, appt in discharge plan -CT head/neck revealed aggressive osteoblastic and osteolytic changes involving the spinous processes and posterior elements of the upper thoracic vertebrae and left ribs, findings are consistent with osseous metastasis given history of breast cancer and recent findings nuclear medicine bone scan. Left upper lobe 6 mm pulmonary nodule. Possible progression?, will schedule clinic f/u with Dr. Khadijah to further evaluate, consider repeat bone scan/PET at that time. F/u appt in discharge plan -CA 15-3 253, CA 27.29 378 on 05/29/22. Repeat tumor markers showed improvement, CA 15-3 188, CA 27.29 302 Weakness/frequent falls -CT head and neck revealed no acute intracranial process. Nonspecific white matter changes likely secondary to chronic small vessel ischemic disease. Ag gressive osteoblastic and osteolytic changes involving the spinous processes and posterior elements of the upper thoracic vertebrae and left ribs, findings are consistent with osseous metastatic is given history of breast cancer and recent findings nuclear medicine bone scan. Left upper lobe 6 mm pulmonary nodule. Multilevel degenerative disc disease. chest x-ray revealed left airspace consolidation concerning for acute inflammatory versus infectious process. Multifocal nodule right lower lobe opacities, these may represent pulmonary nodules versus additional air space consolidations. Pelvis x-ray is negative for acute fracture. -Urinalysis negative for acute UTI. -Encourage oral intake/liberal fluids -Pt reports continued symptom important -Rehab planned upon discharge
[2022-06-22] MEDS ORDERED: LIDOCAINE 1% INJ 10MG/ML (5 ML VIAL-PF) SQ ONE (14:45)
--- NOTE | 2022-06-22 15:45 | XR ---
EXAMINATION TYPE: XR chest 1V DATE OF EXAM: 06/22/2022 CLINICAL HISTORY: PICC line placement. TECHNIQUE: Single AP portable upright view of the chest is obtained. COMPARISON: Chest x-ray from 6 days earlier FINDINGS: There is new Left-sided PICC line terminating in SVC. Osseous structures are demineralized . Underlying scoliosis is redemonstrated. Cardiac silhouette size is stable and upper limits of sae l with atherosclerotic change seen in prominent aortic knob. There is chronic parenchymal change bila terally with areas of increased opacity in the lower lungs redemonstrated. Findings could reflect acu te infiltrate and/or scarring. No new focal airspace opacity, pleural effusion, or pneumothorax seen bilaterally. IMPRESSION: As above.
[2022-06-23] MEDS: HYDROcodone/APAP 5-325MG 1 EACH TAB PO PRN ×3 (00:48→17:31)
[2022-06-23] MEDS: DEXTROSE 5%-0.45% NACL 1,000 ML IV SCH (05:54)
[2022-06-23] MEDS: THIAMINE 100 MG TAB PO SCH (06:28)
--- NOTE | 2022-06-23 08:01 | PN ---
PROGRESS NOTE DATE OF SERVICE: 06/22/2022 SUBJECTIVE: This 82-year-old woman was admitted with significant sacral decubitus ulcer, scheduled to have an ECF rehab. Cultures are showing coagulase-negative Staph. No chest pain, no palpitation. OBJECTIVE: VITAL SIGNS: Pulse is 120, blood pressure 150/70, respirations 20. CHEST: Clear to auscultation. CARDIOVASCULAR: S1, S2. ABDOMEN: Soft. NERVOUS SYSTEM: Diffusely weak. Sacral ulcer present. LABORATORY DATA: Reviewed. ASSESSMENT: 1. Sacral decubitus ulcer with failure of outpatient treatment with possible pressure ulcer, stage IV, present on admission. 2. Generalized weakness and severe dehydration present on admission. 3. Metastatic breast cancer history. 4. Left upper lobe pulmonary nodule. 5. Hypokalemia. 6. Multiple medications. 7. Gait dysfunction. 8. Full code. RECOMMENDATIONS AND DISCUSSION: This 82-year-old woman presented with multiple complex medical issues. At this time, I recommended to continue the current medications, continue symptomatic treatment, continue with antibiotics. Closely follow with multiple consultants. Possible ECF rehab. Prognosis guarded. Further recommendations to follow. MMODL / IJN: [id number] /
--- NOTE | 2022-06-23 09:26 | P.PN ---
Progress Note - Text Progress Note Date: 06/23/22 Patient Latonia clinically unchanged. Her decubitus ulcer stable. She'll continue receive supportive care.
[2022-06-23] MEDS: FOLIC ACID 1 MG TAB PO SCH (09:28)
[2022-06-23] MEDS: HEPARIN SODIUM,PORCINE/PF 5,000 UNIT/0.5 ML SYRINGE SQ SCH (09:28)
[2022-06-23] MEDS: MULTIVITAMINS, THERA 1 EACH TAB PO SCH (09:28)
[2022-06-23] MEDS: IBUPROFEN 400 MG TAB PO PRN (09:29)
[2022-06-23 13:45] VITALS: BP 150/73; PULSE 100; RESP 16; TEMP 98.5
--- NOTE | 2022-06-23 13:50 | P.DS ---
Providers Date of admission: 06/17/22 00:03 Attending physician: Rg Solorzano Consults: 06/17/22 00:03 Consult Physician Routine Consulting Provider: hCris Lucio Consult Reason/Comments: Metastatic breast cancer on chemotherapy Do you want consulting provider notified?: Yes, Notify in am 06/17/22 12:00 Consult Physician Routine Consulting Provider: Diana Alejo Consult Reason/Comments: sacral wound Do you want consulting provider notified?: Yes 06/18/22 10:30 Consult Physician Routine Consulting Provider: Fco Clements Consult Reason/Comments: surgical debridement of sacral/coccyx pressure ulcer Do you want consulting provider notified?: Yes Primary care physician: Fadi Magana [facility] Hospital Course: Hospital course: Patient is a 82-year-old female with a known history of left breast cancer currently on chemotherapy, endometrial cancer status post total abdominal hysterectomy and bilateral salpingo-oophorectomy in 1996 and postoperative adjuvant radiation treatment, hypothyroidism and osteoarthritis presents to ER due to complaints of not feeling well and increased weakness and multiple falls. Patient has been found to have sacral decubitus ulcer, she's been evaluated by surgery team and underwent incision and drainage of the infected material status post wound VAC placement which is in place. Culture is growing staph stimulans patient currently covered with antibiotic from infectious disease team and she was treated with ceftriaxone and gentle hydration. Patient wound and infection looks his stable and she was cleared for discharge by both surgeon and infectious disease team. Discharge antibiotic per ID team. Also patient with a known history of metastatic breast cancer status post left modified radical mastectomy in 1993 with CAT scan showing multiple osteoblastic and osteoplastic changes of the thoracic vertebra and left rib suspicious for metastatic disease. Patient informed and she agrees reactive She has CA 15-3 antigen increased and CA 27.29 high as well but they are improving per her oncologist/clinical assoc team will follow the patient closely. Patient today is awake and alert, weakness improving, she has good appetite and she eating her lunch with good appetite. Left arm PICC line in place and is working per staff Denies any specific complaint no chest pain dyspnea. No abdominal pain vomiting or diarrhea. Patient was cleared for discharge by all consultants including surgery, ID team, hematology oncology team. Patient will be discharged on antibiotic per ID team, see discharge instructions reviewed patient will be discharged on ceftriaxone. Problems and management plan were discussed with the patient and he verbalized understanding and acceptance Patient was found stable and can be discharged home in guarded prognosis however he needs follow-up as an outpatient. Patient was instructed to follow up with PCP Dr. Singh within one week and patient agrees Patient also was instructed to follow up with her oncologist Dr. Lucio and she agrees with the appointments made for her on 07/03/2022 and she agress and states she will follow-up. Also patient was instructed to follow up with surgery and infectious disease team doctor said in 1-2 weeks and she agrees, see discharge instructions Physical exam Gen: patient is a AAOx3, no distress CVS: S1-S2, RRR, no murmur Lungs: B/L CTA, no wheezing Abdomen: soft, no distention, no tenderness, positive bowel sounds Extremity: no leg edema or induration Musculoskeletal: Sacral decubitus ulcer with wound VAC in place. No tenderness Time spent more than 35 minutes Patient Condition at Discharge: Stable Plan - Discharge Summary Discharge Rx Participant: No New Discharge Prescriptions: New Folic Acid 1 mg PO DAILY@1200 tab Melatonin 5 mg PO HS PRN tab PRN Reason: insomnia Multivitamins, Thera [Multivitamin (formulary)] 1 each PO DAILY@1200 tab metroNIDAZOLE [Flagyl] 500 mg PO TID #90 tab cefTRIAXone [Rocephin] 2,000 mg IVP Q24HR #40 each Artificial Tears-Hypromellose [Artificial Tear Drops] 1 drops BOTH EYES QID PRN ml PRN Reason: Dry Eye(S) HYDROcodone/APAP 5-325MG [Lyndora 5-325] 1 each PO Q12HR PRN 10 Days #5 tab PRN Reason: Pain Thiamine [Vitamin B-1] 100 mg PO BID-W/MEALS tab Discontinued Ibuprofen [Motrin] 300 mg PO TID No Action Ribociclib Succinate [Kisqali] 600 mg PO DAILY Discharge Medication List Ribociclib Succinate [Kisqali] 600 mg PO DAILY 06/16/22 [History] Artificial Tears-Hypromellose [Artificial Tear Drops] 1 drops BOTH EYES QID PRN ml 06/23/22 [Rx] Folic Acid 1 mg PO DAILY@1200 tab 06/23/22 [Rx] HYDROcodone/APAP 5-325MG [Lyndora 5-325] 1 each PO Q12HR PRN 10 Days #5 tab 06/23/22 [Rx] Melatonin 5 mg PO HS PRN tab 06/23/22 [Rx] Multivitamins, Thera [Multivitamin (formulary)] 1 each PO DAILY@1200 tab 06/23/22 [Rx] Thiamine [Vitamin B-1] 100 mg PO BID-W/MEALS tab 06/23/22 [Rx] cefTRIAXone [Rocephin] 2,000 mg IVP Q24HR #40 each 06/23/22 [Rx] metroNIDAZOLE [Flagyl] 500 mg PO TID #90 tab 06/23/22 [Rx] Follow up Appointment(s)/Referral(s): Chris Lucio MD [STAFF PHYSICIAN] - 07/03/22 10:30 am Shravan Pollock [NON-STAFF] - [facility] [NON-STAFF] - 1 Week Fadi Singh MD [Primary Care Provider] - 1-2 days Diana Alejo MD [STAFF PHYSICIAN] - 1 Week Ambulatory/Diagnostic Orders: Basic Metabolic Panel [LAB.AMB] Location: None Selected C Reactive Protein [LAB.AMB] Location: None Selected Complete Blood Count w/diff [LAB.AMB] Location: None Selected Erythrocyte Sedimentation Rate [LAB.AMB] Location: None Selected Activity/Diet/Wound Care/Special Instructions: Apply negative pressure wound vac to sacrum at 125 mm/hg with black foam. Change Saturday, Saturday, Saturday Discharge Disposition: TRANSFER TO SNF/ECF
[2022-06-23] MEDS ORDERED: metroNIDAZOLE 500 MG TAB PO SCH (16:00)
--- NOTE | 2022-06-25 07:51 | IR ---
PICC LINE PLACEMENT: HISTORY: Infection requiring long-term antibiotic therapy PROCEDURE: Ultrasound and fluoroscopic guidance of PICC line placement. COMPLICATIONS: None ANESTHESIA: 1. 1% Lidocaine locally. FINDINGS/TECHNIQUE: The procedure was explained to the patient. The risks, complications, benefits and alternatives were discussed and any questions were answered. Informed consent was obtained. The patient was placed supine on the fluoroscopic table and prepped and draped in the usual sterile fash ion. Utilizing a 21 gauge needle and sonographic and fluoroscopic guidance, access in the left basi lic vein was achieved and there is placement of a 0.018 guidewire. The vein is patent. A 4-F sheath was placed over the guidewire. The guidewire and dilator were removed and a 4-F. PICC line was plac ed through the sheath with the tip at the level of the SVC. The sheath was removed, the catheter was flushed and sutured into position. The patient was stable throughout the procedure and remained sta ble upon discharge from the Department of Radiology. The vein puncture was patent under ultrasound. A carmona scale image was obtained to document patency of the vein punctured. All elements of the maximal barrier technique were utilized. FLUOROSCOPY TIME: DAP 0.0773Gy cm2 IMPRESSION: Successful PICC line placement under ultrasound and fluoroscopic guidance. Note is made that patient had left mastectomy but there appears to be a right-sided central venous occlusion and request was lalitha humphries for left-sided PICC line placement as a temporary measure.
--- NOTE | 2022-06-25 10:04 | IR ---
PICC LINE PLACEMENT: HISTORY: Infection requiring long-term antibiotic therapy PROCEDURE: Ultrasound and fluoroscopic guidance of PICC line placement. COMPLICATIONS: None ANESTHESIA: 1. 1% Lidocaine locally. FINDINGS/TECHNIQUE: The procedure was explained to the patient. The risks, complications, benefits and alternatives were discussed and any questions were answered. Informed consent was obtained. The patient was placed supine on the fluoroscopic table and prepped and draped in the usual sterile [facility] ion. Utilizing a 21 gauge needle and sonographic and fluoroscopic guidance, access in the right bas ilic vein was achieved and there is placement of a 0.018 guidewire. The guidewire would only extend t o the axillary subclavian junction. Suggestion of a central venous occlusions of the procedure was di scontinued. The patient was stable throughout the procedure and remained stable upon discharge from [facility] Department of Radiology. The vein puncture was patent under ultrasound. A carmona scale image was obtained to document patency of the vein punctured. All elements of the maximal barrier technique were utilized. FLUOROSCOPY TIME: DAP 0.157Gy cm2 IMPRESSION: Findings suspicious for central venous occlusion.
--- NOTE | 2022-06-30 19:02 | P.PN ---
Subjective Progress Note Date: 06/21/22 Principal diagnosis: Infected sacral pressure ulcer Patient is a 82-year-old female with multiple comorbidities, presented to hospital with weakness and a worsening wound to the sacral area with the patient has for a couple of weeks, patient is status post surgical debridement and deep cultures completed on 06/19/2022 On today's evaluation that is 06/21/2022, the patient remians to be afebrile, the patient is breathing comfortably on room air, patient denies chest pain shortness of breath or cough , the patient denies any nausea no vomiting no abdominal pain or diarrhea,the pt pain to the sacral wound has decreased in intensity Objective - Vital Signs Vital signs: Vital Signs Temp 98.6 F 06/21/22 07:28 Pulse 86 06/21/22 07:28 Resp 16 06/21/22 07:28 BP 147/71 06/21/22 07:28 Pulse Ox 98 06/21/22 07:28 FiO2 Intake & Output 06/20/22 06/21/22 06/21/22 18:59 06:59 18:59 Intake Total 50 Output Total 450 1600 Balance -450 -1600 50 Intake: Intake, IV Titration 50 Amount cefTRIAXone 2 gm In 50 Sodium Chloride 0.9% 50 ml @ 100 mls/hr IVPB Q24HR [facility] Rx#:[id number] Output: Urine 450 1600 Other: Voiding Method Indwelling Catheter Indwelling Catheter Indwelling Catheter - Exam GENERAL DESCRIPTION: An elderly female lying in bed in no distress RESPIRATORY SYSTEM: Unlabored breathing , decreased breath sounds at bases HEART: S1 S2 regular rate and rhythm , ABDOMEN: Soft , no tenderness EXTREMITIES: No edema feet - Labs CBC & Chem 7: 06/22/22 03:57 06/22/22 03:57 Labs: Microbiology - Last 24 Hours (Table) 06/19/22 12:57 Gram Stain - Preliminary Buttock Tissue Culture - Preliminary Assessment and Plan (1) Pressure injury of sacral region, stage 4 Status: Acute Code(s): L89.154 - PRESSURE ULCER OF SACRAL REGION, STAGE 4 SNOMED Code(s): 65507401588711 Plan: 1patient was rehospitalized with transient multifactorial in this patient who did have a unstageable sacral pressure ulcer and concern for infected wound with a foul-smelling drainage, patient is status post surgical debridement and deep culture which are currently pending 2-patient also have a abnormal x-ray concerning for possible right lower lobe consolidation versus metastatic disease as the patient currently not running a fever or elevated white count pneumonia less likely but not entirely excluded 3-patient CRP was 11.8 and procalcitonin is 0.12 clinically doubt pneumonia 4Patient will continue with Rocephin 2 g daily while waiting for the cultures to finalize, will need PICC Time with Patient: Less than 30
--- NOTE | 2022-06-30 19:04 | P.PN ---
Subjective Progress Note Date: 06/22/22 Principal diagnosis: Infected sacral pressure ulcer Patient is a 82-year-old female with multiple comorbidities, presented to hospital with weakness and a worsening wound to the sacral area with the patient has for a couple of weeks, patient is status post surgical debridement and deep cultures completed on 06/19/2022 On today's evaluation that is 06/22/2022, the patient continues to be afebrile, the patient is breathing comfortably on room air, patient denies chest pain shortness of breath or cough , the patient denies vomiting no abdominal pain or diarrhea,the Patient pain to the sacral wound is controlled Objective - Vital Signs Vital signs: Vital Signs Temp 98.4 F 06/22/22 07:16 Pulse 91 06/22/22 07:16 Resp 17 06/22/22 07:16 BP 148/75 06/22/22 07:16 Pulse Ox 96 06/22/22 07:16 FiO2 Intake & Output 06/21/22 06/22/22 06/22/22 18:59 06:59 18:59 Intake Total 50 1420 236 Output Total 1500 2500 Balance -1450 -1080 236 Weight 58.967 kg Intake: Intake, IV Titration 50 600 Amount Dextrose 5%-0.45% NaCl 1, 600 000 ml @ 50 mls/hr IV . [facility] Rx#:[id number] cefTRIAXone 2 gm In 50 Sodium Chloride 0.9% 50 ml @ 100 mls/hr IVPB Q24HR [facility] Rx#:[id number] Oral 820 236 Output: Drainage 0 Posterior Buttock 0 Urine 1500 2500 Uretheral (Nieto) 2500 Other: Voiding Method Indwelling Catheter Indwelling Catheter Indwelling Catheter - Exam GENERAL DESCRIPTION: An elderly female lying in bed in no distress RESPIRATORY SYSTEM: Unlabored breathing , decreased breath sounds at bases HEART: S1 S2 regular rate and rhythm , ABDOMEN: Soft , no tenderness EXTREMITIES: No edema feet - Labs CBC & Chem 7: 06/22/22 03:57 06/22/22 03:57 Labs: Abnormal Lab Results - Last 24 Hours (Table) 06/22/22 06/22/22 Range/Units 03:57 03:57 RBC 2.86 L (4.10-5.20) X 10*6/uL Hgb 9.7 L (12.0-15.0) g/dL Hct 28.8 L (37.2-46.3) % MCV 100.7 H (80.0-97.0) fL MCH 33.9 H (27.0-32.0) pg RDW 14.9 H (11.5-14.5) % Immature Gran # 0.12 H (0.00-0.04) X 10*3/uL Lymphocytes # 0.70 L (0.90-5.00) X 10*3/uL Anion Gap 9.50 L (10.00-18.00) mmol/L Calcium 7.8 L (8.7-10.3) mg/dL Microbiology - Last 24 Hours (Table) 06/19/22 12:57 Gram Stain - Preliminary Buttock Tissue Culture - Preliminary Coagulase Negative Staph Assessment and Plan (1) Pressure injury of sacral region, stage 4 Status: Acute Code(s): L89.154 - PRESSURE ULCER OF SACRAL REGION, STAGE 4 SNOMED Code(s): 46629735986843 Plan: 1patient was rehospitalized with transient multifactorial in this patient who did have a unstageable sacral pressure ulcer and concern for infected wound with a foul-smelling drainage, patient is status post surgical debridement and deep culture which are currently pending 2-patient also have a abnormal x-ray concerning for possible right lower lobe consolidation versus metastatic disease as the patient currently not running a fever or elevated white count pneumonia less likely but not entirely excluded 3-patient CRP was 11.8 and procalcitonin is 0.12 clinically doubt pneumonia 4-Local wound care with wound vac 4Patient will continue with Rocephin 2 g daily add flagyl to cover for anerobes, PICC for out patient IV antibiotics Time with Patient: Less than 30
--- NOTE | 2022-06-30 19:08 | P.PN ---
Subjective Progress Note Date: 06/23/22 Principal diagnosis: Infected sacral pressure ulcer Patient is a 82-year-old female with multiple comorbidities, presented to hospital with weakness and a worsening wound to the sacral area with the patient has for a couple of weeks, patient is status post surgical debridement and deep cultures completed on 06/19/2022 On today's evaluation that is 06/23/2022, the patient is afebrile, the patient is breathing comfortably, patient denies chest pain shortness of breath or cough , the patient denies vomiting no abdominal pain or diarrhea,the Patient pain to the sacral wound has decreased in intensity Objective - Vital Signs Vital signs: Vital Signs Temp 98.3 F 06/23/22 07:30 Pulse 89 06/23/22 07:30 Resp 17 06/23/22 07:30 BP 160/72 06/23/22 07:30 Pulse Ox 97 06/23/22 07:30 FiO2 Intake & Output 06/22/22 06/23/22 06/23/22 18:59 06:59 18:59 Intake Total 404 360 Output Total 1200 1700 900 Balance -796 -1340 -900 Weight 58.967 kg Intake: Intake, IV Titration 50 Amount cefTRIAXone 2 gm In 50 Sodium Chloride 0.9% 50 ml @ 100 mls/hr IVPB Q24HR [facility] Rx#:[id number] Oral 354 360 Output: Drainage 200 Posterior Buttock 200 Urine 1200 1500 900 Uretheral (Nieto) 1000 0 Other: Voiding Method Indwelling Catheter Indwelling Catheter Indwelling Catheter - Exam GENERAL DESCRIPTION: An elderly female lying in bed in no distress RESPIRATORY SYSTEM: Unlabored breathing , decreased breath sounds at bases HEART: S1 S2 regular rate and rhythm , ABDOMEN: Soft , no tenderness Sacral wound covered with wound vac - Labs CBC & Chem 7: 06/22/22 03:57 06/22/22 03:57 Labs: Microbiology - Last 24 Hours (Table) 06/19/22 12:57 Gram Stain - Final Buttock Tissue Culture - Final Staphylococcus simulans Assessment and Plan (1) Pressure injury of sacral region, stage 4 Status: Acute Code(s): L89.154 - PRESSURE ULCER OF SACRAL REGION, STAGE 4 SNOMED Code(s): 92978409890086 Plan: 1patient was rehospitalized with transient multifactorial in this patient who did have a unstageable sacral pressure ulcer and concern for infected wound with a foul-smelling drainage, patient is status post surgical debridement and deep culture which are currently pending 2-patient also have a abnormal x-ray concerning for possible right lower lobe consolidation versus metastatic disease as the patient currently not running a fever or elevated white count pneumonia less likely but not entirely excluded 3-patient CRP was 11.8 and procalcitonin is 0.12 clinically doubt pneumonia 4-Local wound care with wound vac , chnage momnday saturday and saturday 4Patient local culture with staph simulans which is oxacillin sensitive and a nerobes , pt will continue with Rocephin 2 g daily and flagyl x 6 weeks and close outpatient follow up Time with Patient: Less than 30
== END 2022-06-23 18:36 | DRG 580 ==
LOC: EC 21:00 → 4SSUR 06-17 00:03
PROVIDERS: ADMIT Hospitalist; ATTEND Hospitalist
PROC: 0KBP0ZZ Excision of Left Hip Muscle, Open Approach (ICD-10-PCS; principal; 2022-06-19 07:30)
PROC: 0KBN0ZZ Excision of Right Hip Muscle, Open Approach (ICD-10-PCS; principal; 2022-06-19 07:30)
PROC: 02HV33Z Insertion of Infusion Device into Superior Vena Cava, Percutaneous Approach (ICD-10-PCS; 2022-06-22)
DX: L89.154 Pressure ulcer of sacral region, stage 4 (principal); C79.51 Secondary malignant neoplasm of bone; E87.6 Hypokalemia; C50.912 Malignant neoplasm of unspecified site of left female breast; R91.1 Solitary pulmonary nodule; M47.816 Spondylosis without myelopathy or radiculopathy, lumbar region; E86.0 Dehydration; D50.9 Iron deficiency anemia, unspecified; Z74.09 Other reduced mobility; M19.90 Unspecified osteoarthritis, unspecified site; E03.9 Hypothyroidism, unspecified; M81.0 Age-related osteoporosis without current pathological fracture; R29.6 Repeated falls; Z20.822 Contact with and (suspected) exposure to COVID-19; Z96.642 Presence of left artificial hip joint; Z96.652 Presence of left artificial knee joint; Z88.6 Allergy status to analgesic agent; Z88.2 Allergy status to sulfonamides; Z88.0 Allergy status to penicillin; Z90.722 Acquired absence of ovaries, bilateral; Z90.710 Acquired absence of both cervix and uterus; Z90.12 Acquired absence of left breast and nipple; Z85.42 Personal history of malignant neoplasm of other parts of uterus; Z90.2 Acquired absence of lung [part of]; Z92.3 Personal history of irradiation
CPT/HCPCS: 36415; 36573; 70450; 71045; 71046; 72125; 72170; 80048; 80053; 81003; 82607; 82747; 83690; 83735; 83880; 84145; 84443; 84484; 85025; 85027; 85610; 85652; 85730; 86140; 86300; 87070; 87075; 87077; 87186; 87205; 87635; 88304; 93005; 99285

== ENCOUNTER 2022-07-03 14:30 | Day surgery (SDC) | payer MEDICARE ==
[~2022-07-03 14:30] MED LIST: LIDOCAINE 1% INJ 10MG/ML (5 ML VIAL-PF) SQ ONE
--- NOTE | 2022-07-03 14:32 | IR ---
PICC LINE PLACEMENT: HISTORY: Infection requiring long-term antibiotic therapy PROCEDURE: Ultrasound and fluoroscopic guidance of PICC line placement. COMPLICATIONS: None ANESTHESIA: 1. 1% Lidocaine locally. FINDINGS/TECHNIQUE: The procedure was explained to the patient. The risks, complications, benefits and alternatives were discussed and any questions were answered. Informed consent was obtained. The patient was placed supine on the fluoroscopic table and prepped and draped in the usual sterile fash ion. Utilizing a 21 gauge needle and sonographic and fluoroscopic guidance, access in the right bra chial vein was achieved and there is placement of a 0.018 guidewire. The vein is patent. A 4-F ceballos th was placed over the guidewire. The guidewire and dilator were removed and a 4-F. PICC line was pl aced through the sheath with the tip at the level of the SVC. The sheath was removed, the catheter w as flushed and sutured into position. The patient was stable throughout the procedure and remained s table upon discharge from the Department of Radiology. The vein puncture was patent under ultrasound. A carmona scale image was obtained to document patency of the vein punctured. All elements of the maximal barrier technique were utilized. FLUOROSCOPY TIME: DAP 0.327Gy cm2 IMPRESSION: Successful PICC line placement under ultrasound and fluoroscopic guidance.
[2022-07-03] MEDS ORDERED: HYDROcodone/APAP 5-325MG 1 EACH TAB PO PRN (14:55)
[2022-07-03] MEDS ORDERED: HYDROcodone/APAP 5-325MG 1 EACH TAB ONE (14:56)
== END 2022-07-03 16:30 | disposition home or self-care (01) ==
LOC: CATHCVL 14:30
PROVIDERS: ATTEND Radiology Diagnostic Radiology
DX: Z45.2 Encounter for adjustment and management of vascular access device (principal); M19.90 Unspecified osteoarthritis, unspecified site; E07.9 Disorder of thyroid, unspecified; Z90.89 Acquired absence of other organs; Z90.710 Acquired absence of both cervix and uterus; Z98.82 Breast implant status; Z98.890 Other specified postprocedural states; Z82.49 Family history of ischemic heart disease and other diseases of the circulatory system; Z88.0 Allergy status to penicillin; Z88.2 Allergy status to sulfonamides; Z88.8 Allergy status to other drugs, medicaments and biological substances
CPT/HCPCS: 36573; C1751; C1769 ×2; J2001